=== PATIENT | male | born 1960 | race African-American/Black ===

== ENCOUNTER 2017-05-11 09:29 | Inpatient (IN) | payer MEDICAID, OTHER ==
[~2017-05-11] VITALS: Ht 185.4 cm; Wt 84.2 kg
[2017-05-11 09:34] VITALS: BP 170/81; PULSE 66; RESP 18; O2SAT 95
--- NOTE | 2017-05-11 09:50 | PD ---
HPI Chief Complaint: Pain: Acute or Chronic Time Seen by Provider: 09:47 Travel History International Travel<30 days: No Contact w/Intl Traveler<30days: No Traveled to known affect area: No History of Present Illness HPI 56-year-old male with history of BPH, had a Terrazas catheter placed last week, states that he woke up last night with left testicular pain, lower abdominal pain which he currently states is an 8 out of 10. He denies any fevers or any other issues. Modifying Factors: None Associated Signs & Symptoms: Testicular pain, lower abdominal pain Risk Factors: BPH, Terrazas catheter in place [facility] Past Medical History Patient Takes Glucophage: No Social History Alcohol Use: No Tobacco Use: No Allergies-Medications (Allergen,Severity, Reaction): Coded Allergies: No Known Allergies (Unverified , 05/11/17) Reported Meds & Prescriptions Reported Meds & Active Scripts Active Reported Humalog Inj (Insulin Human Lispro) 1,000 Unit/10 Ml Vial 1-9 Units SQ ACHS Max dose at bedtime:( )units; sugars< 70,(0)units; sugars 150-199,(1)unit; sugars 200-249,(3)units; sugars 250-299,(5)units; sugars 300-349,(7)units; sugars more than 349,(9)units. Levemir Inj (Insulin Detemir) 1,000 unit/ 10 ML Vial 10 Units SQ HS Do not mix with any other Insulin. Review of Systems Except as stated in HPI: all other systems reviewed are Neg Physical Exam Narrative GENERAL: Well-developed middle age -[place] male patient in moderate distress. Awake and oriented 3. SKIN: Focused skin assessment warm/dry. HEAD: Atraumatic. Normocephalic. EYES: Pupils equal and round. No scleral icterus. No injection or drainage. ENT: No nasal bleeding or discharge. Mucous membranes pink and moist. NECK: Trachea midline. No JVD. CARDIOVASCULAR: Regular rate and rhythm. No murmur appreciated. RESPIRATORY: No accessory muscle use. Clear to auscultation. Breath sounds equal bilaterally. GASTROINTESTINAL: Abdomen soft, mild lower abdominal tenderness without guarding or rebound, nondistended. Hepatic and splenic margins not palpable. GENITOURINARY: Circumcised. Testes descended bilaterally with tenderness to palpation of the left testicle versus the right. No lesions or erythema. No urethral discharge. Terrazas catheter in place. MUSCULOSKELETAL: No obvious deformities. No clubbing. No cyanosis. No edema. NEUROLOGICAL: Awake and alert. No obvious cranial nerve deficits. Motor grossly within normal limits. Normal speech. PSYCHIATRIC: Appropriate mood and affect; insight and judgment normal. Data Data Last Documented VS Vital Signs Date Time Temp Pulse Resp B/P Pulse Ox O2 Delivery O2 Flow Rate FiO2 05/11/17 09:34 66 18 170/81 95 Orders Basic Metabolic Panel (Bmp) (05/11/17 09:47) Complete Blood Count With Diff (05/11/17 09:47) Ua Includes Microscopic (05/11/17 09:47) Us Testicles W Doppler (05/11/17 09:47) Iv Access Insert/Monitor (05/11/17 09:47) Ondansetron Inj (Zofran Inj) (05/11/17 10:00) Sodium Chloride 0.9% Flush (Ns Flush) (05/11/17 10:00) Hydromorphone Pf Inj (Dilaudid Pf Inj) (05/11/17 10:00) Vascular Access Team Consult/P PRN (05/11/17 10:01) Vascular Poc Ultrasound (05/11/17 ) Lactic Acid Sepsis Protocol (05/11/17 11:49) Blood Culture (05/11/17 11:49) Piperacil-Tazo 4.5 Gm Premix (Zosyn 4.5 (05/11/17 11:49) Admit Order (Ed Use Only) (05/11/17 12:42) Labs Laboratory Tests Test 05/11/17 10:10 Urine Color LIGHT-YELLOW Urine Turbidity HAZY Urine pH 8.0 Urine Specific [place] 1.011 Urine Protein TRACE mg/dL Urine Glucose (UA) 300 mg/dL Urine Ketones TRACE mg/dL Urine Occult Blood NEG Urine Nitrite POS Urine Bilirubin NEG Urine Urobilinogen LESS THAN 2.0 MG/DL Urine Leukocyte Esterase LARGE Urine RBC 3 /hpf Urine WBC 61 /hpf Urine WBC Clumps RARE Urine Triple Phosphate MOD /hpf Crystals Urine Bacteria MOD /hpf Urine Mucus FEW /lpf Sodium Level 137 MEQ/L Potassium Level 4.2 MEQ/L Chloride Level 105 MEQ/L Carbon Dioxide Level 20.5 MEQ/L Anion Gap 12 MEQ/L Blood Urea Nitrogen 14 MG/DL Creatinine 1.39 MG/DL Estimat Glomerular Filtration 64 ML/MIN Rate Random Glucose 182 MG/DL Calcium Level 8.5 MG/DL MDM Medical Decision Making Medical Screen Exam Complete: Yes Emergency Medical Condition: Yes Medical Record Reviewed: Yes Interpretation(s) Laboratory Tests Test 05/11/17 10:10 Urine Turbidity HAZY (CLEAR) Urine Glucose (UA) 300 mg/dL (NEG) Urine Ketones TRACE mg/dL (NEG) Urine Nitrite POS (NEG) Urine Leukocyte Esterase LARGE (NEG) Urine WBC 61 /hpf (0-5) Urine WBC Clumps RARE (NONE) Urine Triple Phosphate MOD /hpf (NONE) Crystals Urine Bacteria MOD /hpf (NONE) Urine Mucus FEW /lpf (OCC) Carbon Dioxide Level 20.5 MEQ/L (21.0-32.0) Creatinine 1.39 MG/DL (0.60-1.30) Estimat Glomerular Filtration 64 ML/MIN (>89) Rate Random Glucose 182 MG/DL (74-106) Last 24 hours Impressions Scrotum Ultrasound 05/11/17 0923 Signed Impressions: Service Date/Time: Saturday, May 11, 2017 10:14 - CONCLUSION: 1. Increased blood flow within the left testicle and epididymis suggestive of epididymoorchitis. A small left hydrocele is present. 2. Bilateral testicular microlithiasis. Glenn Hamlin MD Differential Diagnosis Lower abdominal pain, testicular painUTI versus malfunctioning urinary catheter versus Nick's gangrene versus testicular torsion versus orchitis Narrative Course Lab work shows significant UTI. IV antibiotics were started after cultures were drawn. His exam is concerning for possible testicular infection and ultrasound shows significant orchitis. Considering patient's diabetes history, and UTI, my plan would be to admit the patient for further treatment and evaluation. Case was discussed with family practice resident service for admission. Diagnosis Primary Impression: Orchitis and epididymitis Additional Impressions: UTI (urinary tract infection) Sepsis Admitting Information Admitting Physician Requests: Admit Mars Chavez MD May 11, 2017 09:50
[2017-05-11] MEDS ORDERED: HYDROmorphone HCL PF 1 MG/ML VIAL IVS ONE (10:00)
[2017-05-11] MEDS ORDERED: SODIUM CHLORIDE 0.9% FLUSH 10 ML FLUSH IVF PRN (10:00)
[2017-05-11] MEDS ORDERED: ONDANSETRON HCL 4 MG/2 ML VIAL IVP ONE (10:00)
[2017-05-11] MEDS ORDERED: LEVEMIR SQ (10:01)
[2017-05-11] MEDS ORDERED: HUMALOG SQ (10:01)
[2017-05-11 10:52] LABS: BACTERIA, URINE MOD /hpf; BLOOD, URINE NEG (NEG); GLUCOSE,URINE 300 mg/dL (NEG); KETONE, URINE TRACE mg/dL (NEG); MUCUS URINE FEW /lpf (OCC); TRIPLE PHOSPHATE CRYSTAL,URINE MOD /hpf; URINE COLOR LIGHT-YELLOW (YELLW/STRAW)
[2017-05-11 10:55] LABS: NITRITE,URINE POS (NEG)
[2017-05-11 10:56] LABS: BICARBONATE 20.5 MEQ/L (21.0-32.0); POTASSIUM 4.2 MEQ/L (3.5-5.1)
--- NOTE | 2017-05-11 11:35 | RADRPT ---
EXAM DATE/TIME: 05/11/2017 10:14 [facility] COMPARISON: No previous studies available for comparison. INDICATIONS : Testicular pain. MEDICAL HISTORY : Testicular pain. Enlarged prostate. Self catheter. SURGICAL HISTORY : None. ENCOUNTER: Initial ACUITY: 2 days PAIN SCORE: 9/10 LOCATION: Bilateral scrotum. MEASUREMENTS: RIGHT TESTICLE: 3.7 x 2.8 x 2.3cm LEFT TESTICLE: 4.6 x 2.9 x 2.9cm FINDINGS: RIGHT TESTICLE: Homogeneous echotexture without intra or extratesticular mass. Innumerable echogenic non-shadowing f oci are present. Blood flow is within normal limits. No significant hydrocele or varicocele. Epidid ymis is within normal limits. LEFT TESTICLE: Homogeneous echotexture without intra or extratesticular mass. Innumerable echogenic non-shadowing f oci are present. Blood flow is increased within the testicle and epididymis. There is a small hydroce le. Epididymis is within normal limits. SCROTUM: Within normal limits. CONCLUSION: 1. Increased blood flow within the left testicle and epididymis suggestive of epididymoorchitis. A sm all left hydrocele is present. 2. Bilateral testicular microlithiasis. Glenn Hamlin MD on May 11, 2017 at 11:29 Board Certified Radiologist. This report was verified electronically.
[2017-05-11] MEDS ORDERED: PIPERACIL-TAZO 4.5 GM PREMIX 100 ML IV STA (11:49)
[2017-05-11 12:43] LABS: AUTOMATED NEUTROPHIL # 9.7 TH/MM3 (1.8-7.7); BASOPHIL % 0.2 % (0.0-2.0); EOSINOPHIL % 0.2 % (0.0-4.0); HEMATOCRIT 30.4 % (39.0-51.0); LYMPH % 5.2 % (9.0-44.0); LYMPHOCYTE # 0.6 TH/MM3 (1.0-4.8); MEAN CELL VOLUME 93.4 FL (80.0-100.0); MEAN CORPUSCULAR HEMOGLOBIN 29.7 PG (27.0-34.0); MEAN CORPUSCULAR HGB CONC 31.8 % (32.0-36.0); MONO % 4.7 % (0.0-8.0); NEUT % 89.7 % (16.0-70.0); PLATELET COUNT 211 TH/MM3 (150-450); RED BLOOD COUNT 3.26 MIL/MM3 (4.50-5.90); RED CELL DISTRIBUTION WIDTH 18.4 % (11.6-17.2); WHITE BLOOD COUNT 10.8 TH/MM3 (4.0-11.0)
[2017-05-11] MEDS: SODIUM CHLORIDE 0.9% FLUSH 10 ML FLUSH IV FLUSH SCH ×2 (12:45→21:00)
[2017-05-11 12:54] LABS: HEMO FLAGS AUTO DIFF
[2017-05-11 13:15] LABS: SCAN/DIFF AUTO DIFF CONFIRMED
[2017-05-11] MEDS ORDERED: HYDROmorphone HCL PF 1 MG/ML VIAL IV PUSH ONE (13:30)
[2017-05-11] MEDS ORDERED: ONDANSETRON HCL 4 MG/2 ML VIAL IVP PRN (13:45)
[2017-05-11] MEDS ORDERED: DEXTROSE 50% IN WATER 50 ML VIAL(D50) IV PRN (13:45)
[2017-05-11] MEDS ORDERED: SODIUM CHLOR 0.9% 1000 ML INJ 1,000 ML IV ONE (13:45)
[2017-05-11] MEDS ORDERED: HYDROmorphone HCL PF 1 MG/ML VIAL IV PRN (13:45)
[2017-05-11] MEDS ORDERED: GLUCAGON 1 MG/ML VIAL OTHER PRN (13:45)
[2017-05-11] MEDS ORDERED: SODIUM CHLORIDE 0.9% FLUSH 10 ML FLUSH IV FLUSH PRN ×2 (13:45→19:00)
[2017-05-11] MEDS ORDERED: SODIUM CHLORIDE 0.9% FLUSH 10 ML FLUSH IV FLUSH SCH ×2 (13:45→21:00)
[2017-05-11] MEDS ORDERED: NALOXONE HCL 0.4 MG/ML AMP IV PRN (13:45)
[2017-05-11 13:46] VITALS: BP 169/82; PULSE 107; RESP 20; O2SAT 97
[2017-05-11 14:35] LABS: LACTIC ACID GHOST NOT REPORTABLE
[2017-05-11] MEDS: SODIUM CHLOR 0.9% 1000 ML INJ 1,000 ML IV SCH ×2 (14:53→23:00)
--- NOTE | 2017-05-11 15:03 | HHI.HP ---
HPI Service Family Medicine Primary Care Physician Kelsy Briceño MD Admission Diagnosis UTI/orchitis/sepsis Diagnoses: International Travel<30 Days: No Contact w/Intl Traveler<30days: No Known Affected Area: No History of Present Illness Mr. Sheehan is a pleasant 56 y/o male with a PMHx of insulin controlled 2 diabetes mellitus, benign prostate hyperplasia, urinary retention requiring frequent catheterizations, and hypertension presenting with 2 days of worsening left testicular pain. He was scheduled for a urological surgery (possible prostate biopsy) on , 05/09, with Dr. Oh, however this was not accomplished secondary to uncontrolled blood sugars preoperatively. He also had a Terrazas catheter placed last week, for urinary retention. HPI: In general, the patient has been having left-sided testicular pain for the past 24 hours. He reports that it is a 10 out of 10, and radiates into his back. Any movement exacerbates the pain. Nothing at this point is helping his pain. He also reports fevers and chills since this morning. He denies any testicular trauma. Otherwise, complete review of systems was negative, except for a mild headache started this morning. (Kenneth Black MD R2) Review of Systems Constitutional: COMPLAINS OF: Fever, Chills, DENIES: Fatigue, Dizziness Endocrine: DENIES: Polydipsia, Polyuria Eyes: DENIES: Blurred vision Respiratory: DENIES: Cough, Sputum production, Shortness of breath Cardiovascular: DENIES: Chest pain, Palpitations, Syncope Gastrointestinal: DENIES: Abdominal pain, Black stools, Bloody stools, Constipation, Diarrhea, Nausea, Vomiting Musculoskeletal: COMPLAINS OF: Back pain Neurologic: COMPLAINS OF: Headache (Kenneth Black MD R2) Past Family Social History Past Medical History BPH, urinary retention Type 2 diabetes on insulin Essential hypertension Hyperlipidemia Past Surgical History Denies any previous surgeries. (Kenneth Black MD R2) Allergies: Coded Allergies: No Known Allergies (Unverified , 05/11/17) Family History Denies a family history of prostate cancer. Mom and dad both with diabetes. Social History Denies smoking tobacco, drinking alcohol, or using recreational drugs. Moved here from [place]. Younger sister Sherine is at bedside - flew in from [place], to be with her brother during his urological procedure. (Kenneth Black MD R2) Physical Exam Vital Signs Vital Signs Date Time Temp Pulse Resp B/P Pulse Ox O2 Delivery O2 Flow Rate FiO2 05/11/17 13:46 107 20 169/82 97 Nasal Cannula 2 05/11/17 09:34 66 18 170/81 95 Physical Exam GENERAL: In acute pain, writhing in the bed. SKIN: No rashes, ecchymoses or lesions. Cool and dry. HEAD: Atraumatic. Normocephalic. No temporal or scalp tenderness. EYES: Pupils equal round and reactive. Cloudy lenses bilaterally, suggestive of cataracts. ENT: Edentulous, dentures in place. Nose without bleeding, purulent drainage or septal hematoma. Mucus membranes moist. NECK: Trachea midline. No JVD or lymphadenopathy. Supple, nontender, no meningeal signs. CARDIOVASCULAR: Regular rate and rhythm without murmurs, gallops, or rubs. Tachycardic to 110. RESPIRATORY: Clear to auscultation. Breath sounds equal bilaterally. No wheezes , rales, or rhonchi. GASTROINTESTINAL: Abdomen soft, non-tender, nondistended. MUSCULOSKELETAL: Extremities without clubbing, cyanosis, or edema. No joint tenderness, effusion, or edema noted. No calf tenderness. NEUROLOGICAL: Awake and alert. Cranial nerves II through XII intact. : Left Teste tender to palpation diffusely, enlarged compared to right, indurated/hard to touch, not erythematous, cremasteric reflex intact, no obvious fluid collection or hernia noted. Laboratory Laboratory Tests Test 05/11/17 05/11/17 05/11/17 10:10 12:27 12:54 Urine Color LIGHT-YELLOW Urine Turbidity HAZY Urine pH 8.0 Urine Specific [place] 1.011 Urine Protein TRACE Urine Glucose (UA) 300 Urine Ketones TRACE Urine Occult Blood NEG Urine Nitrite POS Urine Bilirubin NEG Urine Urobilinogen LESS THAN 2.0 Urine Leukocyte Esterase LARGE Urine RBC 3 Urine WBC 61 Urine WBC Clumps RARE Urine Triple Phosphate MOD Crystals Urine Bacteria MOD Urine Mucus FEW Sodium Level 137 Potassium Level 4.2 Chloride Level 105 Carbon Dioxide Level 20.5 Anion Gap 12 Blood Urea Nitrogen 14 Creatinine 1.39 Estimat Glomerular Filtration 64 Rate Random Glucose 182 Calcium Level 8.5 Lactic Acid Level 3.1 White Blood Count 10.8 Red Blood Count 3.26 Hemoglobin 9.7 Hematocrit 30.4 Mean Corpuscular Volume 93.4 Mean Corpuscular Hemoglobin 29.7 Mean Corpuscular Hemoglobin 31.8 Concent Red Cell Distribution Width 18.4 Platelet Count 211 Mean Platelet Volume 10.0 Neutrophils (%) (Auto) 89.7 Lymphocytes (%) (Auto) 5.2 Monocytes (%) (Auto) 4.7 Eosinophils (%) (Auto) 0.2 Basophils (%) (Auto) 0.2 Neutrophils # (Auto) 9.7 Lymphocytes # (Auto) 0.6 Monocytes # (Auto) 0.5 Eosinophils # (Auto) 0.0 Basophils # (Auto) 0.0 CBC Comment AUTO DIFF Differential Comment AUTO DIFF CONFIRMED Date/Time Procedure Status Source Growth 05/11/17 12:27 Aerobic Blood Culture Received Blood Peripheral Pending 05/11/17 12:27 Anaerobic Blood Culture Received Blood Peripheral Pending (Kenneth Black MD R2) Result Diagram: 05/11/17 1254 05/11/17 1010 Imaging Last 72 hours Impressions Scrotum Ultrasound 05/11/17 0947 Signed Impressions: Service Date/Time: Thursday, May 11, 2017 10:14 - CONCLUSION: 1. Increased blood flow within the left testicle and epididymis suggestive of epididymoorchitis. A small left hydrocele is present. 2. Bilateral testicular microlithiasis. Glenn Hamlin MD (Kenneth Black MD R2) Septic Shock Reassessment Heart: Regular rate and rhythm Lungs: Clear Skin: Warm Peripheral Pulses: Bounding Right Radial Bounding Left Radial Capillary Refill: Brisk, <2 seconds (Kenneth Black MD R2) Assessment and Plan Assessment and Plan Patient is a pleasant 56-year-old male, with left-sided testicular pain for the past 1-2 days. Ultrasound in the ED showed, "increased blood flow within the left testicle, and epididymis suggestive of epididymoorchitis." Meeting sepsis criteria. He will be admitted for severe sepsis (lactic acid 3.1), likely related to orchitis. (Kenneth Black MD R2) Attending Attestation The patient has been seen and examined. The chart and all resident notes have been reviewed. I agree that inpatient care is appropriate and that a two midnight stay is expected for the reasons documented in the resident history and physical. I have discussed this with the resident and certify the resident s order for inpatient admission. (Sulma Dwyer MD) Problem List: (1) Sepsis Status: Acute Plan: Tachycardia 110, RR 20, Lactic acid 3.1, source of infection Right testes. Treat for Orchitis and Epididymitis: -Zosyn 4.5 mg q 6 hours, add vancomycin if clinically not improving or gram + cocci in urine cultures. -Urine cultures pending -Blood cultures pending -1 L fluid bolus in ED, IVF 125 ml/hr NS - if persistent tachycardia, lactic acidosis may need additional 1 L bolus. -Trend lactic acid per sepsis protocol. -Consult urology. No clinical signs of Nick's gangrene at this time. (2) Orchitis and epididymitis Status: Acute Plan: As above. (3) UTI (urinary tract infection) Status: Acute Plan: UA showed: 300 glucose, trace ketones, high nitrates, high leukocyte esterase, 61 white blood cells, moderate high bacteria. Treat with Zosyn as above. Benefits of removing indwelling Terrazas catheter to be weighed. (4) DM (diabetes mellitus) Status: Acute Plan: BG on admission was 162 - on Levemir 10 units q hs at home Hold home insulin and treat with ISS. (5) Nutrition, metabolism, and development symptoms Status: Acute Plan: Nutrition: NPO until evaluated by urology Electrolytes: At goal, CR slightly elevated to 1.39 - will trend. DVT ppx: Mechanical SCDs, Heparin 5,000 units sq q 8 hours. GI ppx: not indicated at this time. wdw Dr. Dwyer (Kenneth Black MD R2) Physician Certification 2 Midnight Certification Type: Admission for Inpatient Services Order for Inpatient Services The services are ordered in accordance with Medicare regulations or non- Medicare payer requirements, as applicable. In the case of services not specified as inpatient-only, they are appropriately provided as inpatient services in accordance with the 2-midnight benchmark. Estimated LOS (days): 2 2 days is the estimated time the patient will need to remain in the hospital, assuming treatment plan goals are met and no additional complications. Post-Hospital Plan: Home (Kenneth Black MD R2) Kenneth Black MD R2 May 11, 2017 15:03 Sulma Dwyer MD May 12, 2017 11:06
[2017-05-11 16:00] VITALS: BP 178/82; PULSE 115; RESP 22; TEMP 100.2; O2SAT 97
--- NOTE | 2017-05-11 16:45 | RADRPT ---
EXAM DATE/TIME: 05/11/2017 15:56 [facility] COMPARISON: No previous studies available for comparison. INDICATIONS : Lower abdominal and testicular pain and urinary tract infection. MEDICAL HISTORY : Benign prostatic hyperplasia, (BPH) Urinary tract infection. Epididymo-orchitis. SURGICAL HISTORY : None. ENCOUNTER: Initial ACUITY: 1 day PAIN SCORE: 4/10 LOCATION: Bilateral flank MEASUREMENTS: RIGHT KIDNEY: 12.3 x 5.6 x 5.2 cm LEFT KIDNEY: 13.0 x 5.8 x 5.8 cm FINDINGS: Parenchymal echogenicity of both kidneys is increased. No focal renal lesion on either side. No evide nce of acute obstructive uropathy. Urinary bladder is decompressed with a Terrazas catheter. There circumferential wall thickening and an e nlarged prostate. Not convincingly part of the prostate is an approximately 5 cm masslike area near t he bladder base. CONCLUSION: 1. Elevated parenchymal echogenicity of both kidneys typical of chronic parenchymal disease. No acute obstructive uropathy demonstrated. 2. Circumferential wall thickening of the urinary bladder as can be seen in the setting of cystitis. There is an enlarged prostate and an apparently separate masslike area near the bladder base which ma y be some prostate lobulation or a true bladder mass. CT urogram recommended when clinically feasible . Glenn Hall MD on May 11, 2017 at 16:39 Board Certified Radiologist. This report was verified electronically.
[2017-05-11] MEDS: INSULIN ASPART SUPPLEMENTAL SCALE SQ SCH ×2 (16:51→21:15)
[2017-05-11] MEDS: oxyCODONE/ACETAMINOPHEN 10 MG/325 MG TAB PO PRN (16:59)
[2017-05-11 17:47] VITALS: PULSE 112
[2017-05-11] MEDS ORDERED: SODIUM CHLORID 0.9% 500 ML INJ 500 ML IV ONE (18:45)
[2017-05-11 20:00] VITALS: BP 155/73; PULSE 107; PULSE 115; RESP 18; TEMP 100.2; O2SAT 95
[2017-05-11] MEDS: DOCUSATE SODIUM 50 MG/SENNA 8.6 MG TAB PO SCH (21:15)
[2017-05-11] MEDS: PIPERACIL-TAZO 4.5 GM PREMIX 100 ML IV SCH (21:43)
[2017-05-12] VITALS (9 sets, daily range): BP systolic 111–149; BP diastolic 58–86; PULSE 95–140; RESP 16–20; TEMP 98.3–102.9; O2SAT 95–100
[2017-05-12] MEDS: PIPERACIL-TAZO 4.5 GM PREMIX 100 ML IV SCH ×4 (02:26→20:46)
[2017-05-12] MEDS: INSULIN ASPART SUPPLEMENTAL SCALE SQ SCH ×4 (06:10→21:00)
[2017-05-12] MEDS: SODIUM CHLOR 0.9% 1000 ML INJ 1,000 ML IV SCH ×2 (06:10→15:49)
[2017-05-12] MEDS: oxyCODONE/ACETAMINOPHEN 10 MG/325 MG TAB PO PRN ×3 (06:49→20:44)
[2017-05-12] MEDS: SODIUM CHLORIDE 0.9% FLUSH 10 ML FLUSH IV FLUSH SCH ×2 (08:22→20:46)
[2017-05-12] MEDS: DOCUSATE SODIUM 50 MG/SENNA 8.6 MG TAB PO SCH ×2 (08:22→20:44)
[2017-05-12 08:44] LABS: AUTOMATED NEUTROPHIL # 12.2 TH/MM3 (1.8-7.7); BASOPHIL % 0.1 % (0.0-2.0); HEMO FLAGS DIFF FINAL; LYMPH % 1.6 % (9.0-44.0); LYMPHOCYTE # 0.2 TH/MM3 (1.0-4.8); MEAN CELL VOLUME 91.7 FL (80.0-100.0); MEAN CORPUSCULAR HEMOGLOBIN 29.6 PG (27.0-34.0); MEAN CORPUSCULAR HGB CONC 32.2 % (32.0-36.0); NEUT % 93.3 % (16.0-70.0); PLATELET COUNT 108 TH/MM3 (150-450); RED BLOOD COUNT 2.83 MIL/MM3 (4.50-5.90); RED CELL DISTRIBUTION WIDTH 17.9 % (11.6-17.2)
[2017-05-12 09:06] LABS: ANION GAP 9 MEQ/L (5-15); AST (GOT) 25 U/L (15-37); BICARBONATE 22.7 MEQ/L (21.0-32.0); BLOOD UREA NITROGEN 21 MG/DL (7-18); CHLORIDE 107 MEQ/L (98-107); GLOMERULAR FILTRATION RATE 48 ML/MIN (>89); MAGNESIUM 1.7 MG/DL (1.5-2.5); SODIUM (NA) 139 MEQ/L (136-145)
[2017-05-12 09:08] LABS: ALT (GPT) 13 U/L (12-78)
[2017-05-12 09:10] LABS: ALKALINE PHOSPHATASE 71 U/L (45-117); TOTAL BILIRUBIN ADULT 0.9 MG/DL (0.2-1.0)
[2017-05-12] MEDS ORDERED: IOHEXOL 350 MG/ML 10 ML VIAL (for RAD DIAG) IV ONE (10:48)
[2017-05-12] MEDS ORDERED: SODIUM CHLOR 0.9% 1000 ML INJ 1,000 ML IV ONE (11:30)
--- NOTE | 2017-05-12 11:42 | RADRPT ---
EXAM DATE/TIME: 05/12/2017 10:48 [facility] COMPARISON: No previous studies available for comparison. INDICATIONS : Fever and chills. Urine tract infection. Enlarged testes. IV CONTRAST: 85 cc Omnipaque 350 (iohexol) IV ORAL CONTRAST: No oral contrast ingested. RADIATION DOSE: 9.96 CTDIvol (mGy) MEDICAL HISTORY : Diabetic SURGICAL HISTORY : None. ENCOUNTER: Initial ACUITY: 1 week PAIN SCALE: 0/10 LOCATION: Bilateral groin TECHNIQUE: Volumetric scanning of the pelvis was performed. Using automated exposure control and adjustment of t he mA and/or kV according to patient size, radiation dose was kept as low as reasonably achievable to obtain optimal diagnostic quality images. FINDINGS: The bladder wall is markedly thickened circumferentially up to about 2 cm in thickness. The Terrazas cat heter balloon is displaced anteriorly by approximately 4.9 cm mass. It is unclear if this represents an enlarged prostate or mass within the bladder. There is a 3.8 cm mass posteriorly in the region of the left seminal vesicle. Differential diagnosis includes infection and neoplasm. There are bilateral hydroceles. No acute bony abnormalities. Normal caliber bowel within the lower ab domen and pelvis. CONCLUSION: 1. Marked circumferential thickening of the bladder with Terrazas catheter balloon displaced anteriorly by a bladder mass or enlarged prostate measuring up to 4.9 cm in diameter. 3.8 cm mass in the region of the left seminal vesicle. Differential diagnosis includes infection and neoplasm. 2. Bilateral hydroceles. Alex De MD on May 12, 2017 at 11:35 Board Certified Radiologist. This report was verified electronically.
[2017-05-12] MEDS ORDERED: VANCOMYCIN INJ 1,000 MG in SODIUM CHLOR 0.9% 250 ML INJ 250 ML IV SCH (12:00)
[2017-05-12] MEDS ORDERED: Vancomycin Consult Pharmacy 1 EA OTHER PRN (12:00)
--- NOTE | 2017-05-12 12:28 | EKG ---
Date Performed: 05/11/2017 Time Performed: 15:17:22 PTAGE: 56 years EKG: SINUS TACHYCARDIA POSSIBLE LEFT ATRIAL ENLARGEMENT NONSPECIFIC T-WAVE ABNORMALITY ABNORMAL RHYTHM ECG NO PREVIOUS TRACING DOCTOR: Yg Darby Interpretating Date/Time 05/12/2017 12:24:46
--- NOTE | 2017-05-12 13:47 | MB ---
cc: HEMAL GARIBAY DATE OF CONSULTATION: 05/12/2017. REASON FOR CONSULTATION: HISTORY OF PRESENT ILLNESS: This is a 56-year-old male who is very noncompliant with his medications who was recently admitted approximately a week and a half ago with DKA. He was scheduled to undergo suprapubic prostatectomy but his glucose again was in the 450 range. On Saturday, he started developing left-sided testicular pain and then the swelling worsened on Saturday and he developed fever. Ultrasound of the scrotum demonstrated left epididymo-orchitis. CT scan of the pelvis demonstrated a left seminal vesicle abscess and possible prostatic abscess. He also has an indwelling Terrazas catheter which he has had chronically due to urinary retention. His sugars have not been controlled and he has been noncompliant with his medication. There is also a history of him being on Coumadin for atrial fibrillation in the past. He is not sure as to when he last took his Coumadin. PAST MEDICAL HISTORY: His medical history includes: 1. BPH with urinary obstruction and retention. 2. Noncontrolled insulin dependent diabetic. 3. Hypertension. 4. Hyperlipidemia. 5. Atrial fibrillation. PAST SURGICAL HISTORY: He denies any prior surgical history. ALLERGIES: HE HAS NO ALLERGIES. SOCIAL HISTORY: Denies smoking, drinking or using any drugs. FAMILY HISTORY: No family history of prostate cancer. Diabetes is noted. REVIEW OF SYSTEMS: Notes left-sided testicular pain and some generalized pelvic pain with fever. Denies chest pain or shortness of breath at present. A twelve-point review of systems was performed, which was negative. PHYSICAL EXAMINATION: VITAL SIGNS: Today his temperature is 98.3 presently with a T-max of 100.2, heart rates 96, respiratory rate is 20, 121/59 is his blood pressure. GENERAL: He is a well-developed, well-nourished 50-year-old male in no acute distress. HEAD, EYES, EARS, NOSE, THROAT: Normocephalic and atraumatic. Pupils equal, round and reactive to light. Extraocular muscles intact. NECK: The neck is supple. HEART: Regular rate and rhythm. LUNGS: Clear. ABDOMEN: The abdomen is soft, nontender and nondistended. Terrazas catheter is in place. RECTAL: He has a tender prostate on the left with left epididymal tenderness with swelling and apparent orchitis. EXTREMITIES: No evidence of cyanosis, clubbing or edema. LABORATORY STUDIES: White count is noted to be 13.0, hemoglobin 8.4, hematocrit 26.0, platelet count of 108,000. Sodium 139, potassium 4.0, chloride 107, CO2 22.7, BUN 21, creatinine 1.7, glucose of 268. Urinalysis shows large leukocyte esterase, clumps of rare ____ cells, 61 white cells with three red cells, leukocyte esterase is large. IMAGING STUDIES: Imaging study shows scrotal ultrasound consistent with left epididymo-orchitis. The pelvic CT shows marked circumferential bladder wall thickening with Terrazas in place with an anterior bladder mass displacing the Terrazas catheter anteriorly and an enlarged prostate measuring 4.9 cm in diameter with a 3.8 centimeter mass in the regional left seminal vesicle. The differential diagnosis includes infection and/or neoplasm. ASSESSMENT: A 56-year-old male with a history of diabetes with chronic indwelling Terrazas catheter and what appears to be a prostatic abscess with seminal vesical abscess also present. 1. Will need to check his PT and INR. 2. Continue NPO. 3. Better diabetic control. 4. He will need a TUR unroofing of his prostatic abscess either later today or earlier this week. Hemal MCCLELLAN/KACIE /1:21 PM /1:37 PM
--- NOTE | 2017-05-12 13:50 | HHI.FPPN ---
Subjective Subjective Patient seen and examined with the resident team. Case reviewed and discussed Please refer to resident H&P for further details regarding HPI, ROS, PMH, SurgHx , FH and SocHx All systems reviewed and neg except as stated in HPI In summary, patient is a 56yoM with a history of BPH known to Dr. Oh, urology. Patient had been experiencing urinary retention requiring indwelling corey catheter placement recently. He came to the ED after progressive worsening of L scrotal pain and edema. Patient is seen in his hospital bed this am, very grateful for his care. He reports some improvement in his pain overnight, reports edema remains stable. RUST Objective Objective Laboratory Tests - Abnormals Test 05/11/17 05/12/17 17:39 07:33 Lactic Acid Level 2.7 mmol/L White Blood Count 13.0 TH/MM3 Red Blood Count 2.83 MIL/MM3 Hemoglobin 8.4 GM/DL Hematocrit 26.0 % Red Cell Distribution Width 17.9 % Platelet Count 108 TH/MM3 Neutrophils (%) (Auto) 93.3 % Lymphocytes (%) (Auto) 1.6 % Neutrophils # (Auto) 12.2 TH/MM3 Lymphocytes # (Auto) 0.2 TH/MM3 Blood Urea Nitrogen 21 MG/DL Creatinine 1.77 MG/DL Estimat Glomerular Filtration 48 ML/MIN Rate Random Glucose 268 MG/DL Calcium Level 7.8 MG/DL Phosphorus Level 2.4 MG/DL Total Protein 6.1 GM/DL Albumin 2.1 GM/DL Vital Signs 05/11/17 05/11/17 05/11/17 05/11/17 13:46 16:00 17:47 20:00 Temp 100.2 100.2 Pulse 107 115 112 107 Resp 20 18 B/P 169/82 178/82 155/73 Pulse Ox 97 97 95 O2 Delivery Nasal Cannula O2 Flow Rate 2 05/11/17 05/11/17 05/12/17 05/12/17 20:00 20:00 00:00 00:00 Temp 100.0 Pulse 115 95 Resp 18 B/P 138/63 Pulse Ox 98 O2 Delivery Room Air Room Air 05/12/17 05/12/17 05/12/17 05/12/17 04:00 04:00 08:00 12:00 Temp 99.9 99.9 98.3 Pulse 104 104 96 Resp 16 20 20 B/P 125/58 111/58 121/59 Pulse Ox 98 98 100 O2 Delivery Room Air INTAKE & OUTPUT 05/12/17 07:00 Intake Total 600 ml Output Total 3975 ml Balance -3375 ml Physical exam GENERAL: wdwn male, resting in bed, family at bedside. SKIN: Warm and dry. L scrotum with erythema and warmth, no palpable crepitus. HEAD: Normocephalic. AT EYES: No scleral icterus. No injection or drainage. ENT: OP clear. MM slightly dry NECK: Supple, trachea midline. No JVD or lymphadenopathy. CARDIOVASCULAR: Regular rate and rhythm without murmurs, gallops, or rubs. RESPIRATORY: Breath sounds equal bilaterally. No accessory muscle use. GASTROINTESTINAL: Abdomen soft, non-tender, nondistended. : Skin L scrotum as noted above. There is significant tenderness to the L scrotum as well as L inguinal region. MUSCULOSKELETAL: No cyanosis, or edema. No calf tenderness BACK: Nontender without obvious deformity. No CVA tenderness. NEURO: Awake and alert. Normal speech. Assessment Assessment 56yo M admitted with: Orchitis, cystitis Sepsis DM, uncontrolled on insulin BPH, urinary retention requiring corey placement Essential hypertension Acute renal failure Hyperlipidemia Leukocytosis Thrombocytopenia Elevated lactic acid PLAN PLAN Empiric antibiotic therapy IVF Blood cultures, urine culture Urology consult, known to Dr. Oh ID consultation, appreciate antibiotic recommendations CT Pelvis Accu-checks, SSI Resume home levemir, titrate as needed Resume home anti-hypertensives Monitor BMP, avoid nephrotoxins Patient seen and examined. Case reviewed and discussed Agree with plan of care as discussed with me and documented in the resident note. Sulma Dwyer MD May 12, 2017 13:50
[2017-05-12 14:09] LABS: APTT (PATIENT) 41.7 SEC (24.3-30.1); INTERNATIONAL NORMALIZED RATIO 1.5 RATIO; PROTHROMBIN TIME - PATIENT 17.1 SEC (9.8-11.6)
[2017-05-12] MEDS: VANCOMYCIN INJ 1,500 MG in SODIUM CHLORID 0.9% 500 ML INJ 500 ML IV SCH (15:48)
[2017-05-12] MEDS: PHYTONADIONE 10 MG/ML VIAL SQ SCH (17:17)
--- NOTE | 2017-05-12 18:14 | PD.ID.CON ---
History of Present Illness Service ID Consult Requested By Markus Reason for Consult orchitis, epidydimitis Primary Care Physician Kelsy Briceño MD Diagnoses: History of Present Illness 56 yo male originally from [facility], with poorly controlled diabetes, BPH and indwelling corey x 1 yr developped subpapibic pain, hematuria and urinary cloudiness close to 1 week ago after the last foely change He also co on maliase, fever, poor appetite He also noted swelling and tenderness of his L esticle Pt was seen by urologist Dr Oh who diagnosed him with prostatic abscess and is planing to operated him tomorrow Pt is having fever up to 102.9 and leukocytosis, his UA is abnormal with prominent pyuria , blood clx are negative 1 day, urine clx pending he has persistent lactic acidosis which is trending down, mild leukocytosis Lymphonenia noed Review of Systems Constitutional: COMPLAINS OF: Fatigue, Fever, Change in appetite Gastrointestinal: COMPLAINS OF: Abdominal pain Genitourinary: COMPLAINS OF: Urinary incontinence, Hematuria, Dysuria, Testicular Pain, Testicular Swelling Except as stated in HPI: all other systems reviewed are Neg Past Family Social History Allergies: Coded Allergies: No Known Allergies (Unverified , 05/11/17) Past Medical History BPH, urinary retention Type 2 diabetes on insulin Essential hypertension Hyperlipidemia Past Surgical History Denies any previous surgeries Active Ordered Medications Medications where reviewed in EMR Antibiotics Include: lenora mitchell Family History diabetes. Social History Denies smoking tobacco, drinking alcohol, or using recreational drugs. Moved here from [place]. last travel 7 mos ago Physical Exam Vital Signs Vital Signs Date Time Temp Pulse Resp B/P Pulse Ox O2 Delivery O2 Flow Rate FiO2 05/12/17 16:00 98.7 106 20 138/69 97 05/12/17 12:00 98.3 96 20 121/59 100 05/12/17 08:25 96 05/12/17 08:25 Nasal Cannula 2.00 05/12/17 08:00 99.9 104 20 111/58 98 05/12/17 04:00 Room Air 05/12/17 04:00 99.9 104 16 125/58 98 05/12/17 00:00 Room Air 05/12/17 00:00 100.0 95 18 138/63 98 05/11/17 20:00 115 05/11/17 20:00 Room Air 05/11/17 20:00 100.2 107 18 155/73 95 Physical Exam CONSTITUTIONAL/GENERAL: This is an adequately nourished patient, in no apparent distress. TUBES/LINES/DRAINS: SKIN: No jaundice, rashes, or lesions. Skin temperature appropriate. Not diaphoretic. HEAD: Atraumatic. Normocephalic. EYES: Pupils equal and round and reactive. Extraocular motions intact. No scleral icterus. No injection or drainage. Fundi not examined. ENT: Hearing grossly normal. Nose without bleeding or purulent drainage. Throat without visible erythema, exudates, masses, or lesions. Edentiulous NECK: Trachea midline. Supple, nontender. No palpable thyroid enlargement or nodularity. CARDIOVASCULAR: Regular rate and rhythm without murmurs, gallops, or rubs. No JVD. Peripheral pulses symmetric. RESPIRATORY/CHEST: Symmetric, unlabored respirations. Clear to auscultation. Breath sounds equal bilaterally. No wheezes, rales, or rhonchi. GASTROINTESTINAL: Abdomen soft, non-tender, nondistended. No hepato-splenomegaly , or palpable masses. No guarding. Bowel sounds present. GENITOURINARY: Without palpable bladder distension. Corey catheter in place with failry clear yellow urine Penis circumcised. L testicle is enlarged and trent to palpation MUSCULOSKELETAL: Extremities without clubbing, cyanosis, or edema. No joint tenderness or effusion noted. No calf tenderness. No mottling or clubbing. LYMPHATICS: No palpable cervical or supraclavicular adenopathy. NEUROLOGICAL: Awake and alert. Motor and sensory grossly within normal limits. Follows commands. Cleasr speech. Moves all extremities. PSYCHIATRIC: No obvious anxiety/depression. no apparent hallucinations or other psychotic thought process. Laboratory Laboratory Tests Test 05/12/17 05/12/17 07:33 13:27 White Blood Count 13.0 Red Blood Count 2.83 Hemoglobin 8.4 Hematocrit 26.0 Mean Corpuscular Volume 91.7 Mean Corpuscular Hemoglobin 29.6 Mean Corpuscular Hemoglobin 32.2 Concent Red Cell Distribution Width 17.9 Platelet Count 108 Mean Platelet Volume 10.0 Neutrophils (%) (Auto) 93.3 Lymphocytes (%) (Auto) 1.6 Monocytes (%) (Auto) 5.0 Eosinophils (%) (Auto) 0.0 Basophils (%) (Auto) 0.1 Neutrophils # (Auto) 12.2 Lymphocytes # (Auto) 0.2 Monocytes # (Auto) 0.6 Eosinophils # (Auto) 0.0 Basophils # (Auto) 0.0 CBC Comment DIFF FINAL Differential Comment Sodium Level 139 Potassium Level 4.0 Chloride Level 107 Carbon Dioxide Level 22.7 Anion Gap 9 Blood Urea Nitrogen 21 Creatinine 1.77 Estimat Glomerular Filtration 48 Rate Random Glucose 268 Calcium Level 7.8 Phosphorus Level 2.4 Magnesium Level 1.7 Total Bilirubin 0.9 Aspartate Amino Transf 25 (AST/SGOT) Alanine Aminotransferase 13 (ALT/SGPT) Alkaline Phosphatase 71 Total Protein 6.1 Albumin 2.1 Prothrombin Time 17.1 Prothromb Time International 1.5 Ratio Activated Partial 41.7 Thromboplast Time Date/Time Procedure Status Source Growth 05/11/17 12:27 Aerobic Blood Culture - Preliminary Resulted Blood Peripheral NO GROWTH IN 1 DAY 05/11/17 12:27 Anaerobic Blood Culture - Preliminary Resulted Blood Peripheral NO GROWTH IN 1 DAY Result Diagram: 05/12/17 0733 05/12/17 0733 Imaging Last Impressions Pelvis CT 05/12/17 0000 Signed Impressions: Service Date/Time: Friday, May 12, 2017 10:48 - CONCLUSION: 1. Marked circumferential thickening of the bladder with Corey catheter balloon displaced anteriorly by a bladder mass or enlarged prostate measuring up to 4.9 cm in diameter. 3.8 cm mass in the region of the left seminal vesicle. Differential diagnosis includes infection and neoplasm. 2. Bilateral hydroceles. Alex De MD Scrotum Ultrasound 05/11/17 0947 Signed Impressions: Service Date/Time: Thursday, May 11, 2017 10:14 - CONCLUSION: 1. Increased blood flow within the left testicle and epididymis suggestive of epididymoorchitis. A small left hydrocele is present. 2. Bilateral testicular microlithiasis. Glenn Hamlin MD Renal Ultrasound 05/11/17 0000 Signed Impressions: Service Date/Time: Thursday, May 11, 2017 15:56 - CONCLUSION: 1. Elevated parenchymal echogenicity of both kidneys typical of chronic parenchymal disease. No acute obstructive uropathy demonstrated. 2. Circumferential wall thickening of the urinary bladder as can be seen in the setting of cystitis. There is an enlarged prostate and an apparently separate masslike area near the bladder base which may be some prostate lobulation or a true bladder mass. CT urogram recommended when clinically feasible. Glenn Hall MD Assessment and Plan Assessment and Plan UTI in the settings of chronic corey Epydemiorchitis Prostatic abscess Sepsis 2/2 complicated UTI - cont zosyn fu urine clx - add levaquine Martha Britt MD May 12, 2017 18:14
[2017-05-12] MEDS: INSULIN DETEMIR 100 UNITS/ML VIAL SQ SCH (21:14)
[2017-05-13] VITALS: BP 97/56; PULSE 110; RESP 19; TEMP 99.7; O2SAT 96
[2017-05-13] MEDS: LEVOFLOXACIN 750 MG PREMIX INJ 150 ML IV SCH (00:26)
[2017-05-13] MEDS: PIPERACIL-TAZO 4.5 GM PREMIX 100 ML IV SCH ×4 (00:26→22:26)
[2017-05-13 04:30] VITALS: BP 140/81; PULSE 106; RESP 18; TEMP 99.1; O2SAT 99
[2017-05-13] MEDS: INSULIN ASPART SUPPLEMENTAL SCALE SQ SCH ×4 (06:18→22:23)
[2017-05-13 08:00] VITALS: BP 118/60; PULSE 75; PULSE 99; RESP 18; TEMP 98.8; O2SAT 98
[2017-05-13 08:07] LABS: AUTOMATED NEUTROPHIL # 13.1 TH/MM3 (1.8-7.7); BASOPHIL % 0.3 % (0.0-2.0); HEMATOCRIT 24.3 % (39.0-51.0); HEMO FLAGS DIFF FINAL; LYMPH % 1.9 % (9.0-44.0); LYMPHOCYTE # 0.3 TH/MM3 (1.0-4.8); MEAN CELL VOLUME 91.2 FL (80.0-100.0); MEAN CORPUSCULAR HEMOGLOBIN 29.5 PG (27.0-34.0); MEAN CORPUSCULAR HGB CONC 32.3 % (32.0-36.0); MONO % 2.3 % (0.0-8.0); NEUT % 95.5 % (16.0-70.0); PLATELET COUNT 102 TH/MM3 (150-450); RED BLOOD COUNT 2.67 MIL/MM3 (4.50-5.90); RED CELL DISTRIBUTION WIDTH 17.8 % (11.6-17.2); WHITE BLOOD COUNT 13.7 TH/MM3 (4.0-11.0)
[2017-05-13 08:14] LABS: INTERNATIONAL NORMALIZED RATIO 1.4 RATIO; PROTHROMBIN TIME - PATIENT 16.1 SEC (9.8-11.6)
[2017-05-13 08:30] LABS: BICARBONATE 21.7 MEQ/L (21.0-32.0); POTASSIUM 3.9 MEQ/L (3.5-5.1)
--- NOTE | 2017-05-13 08:37 | HHI.PR ---
Subjective Patient symptoms today Pt states the scrotum is feeling better; less pain. Fever overnight. INR at 1.4 Objective Vital Signs Vital Signs Date Time Temp Pulse Resp B/P Pulse Ox O2 Delivery O2 Flow Rate FiO2 05/13/17 08:00 98.8 99 18 118/60 98 05/13/17 04:30 99.1 106 18 140/81 99 05/13/17 00:00 99.7 110 19 97/56 96 05/12/17 23:00 98 05/12/17 21:44 20 05/12/17 20:45 102.9 140 20 149/86 95 05/12/17 20:00 130 05/12/17 19:00 Room Air 05/12/17 16:00 98.7 106 20 138/69 97 05/12/17 12:00 98.3 96 20 121/59 100 Intake & Output 05/13/17 05/13/17 07:00 19:00 Intake Total 1550 ml Output Total 1600 ml Balance -50 ml Intake Oral 1550 ml Output Urine Total 1600 ml # Bowel Movements 0 Result Diagram: 05/13/17 0745 05/13/17 0745 Objective Remarks Abd:soft,nt,nd Terrazas with clear urine Left testicle with less swelling today Medications and IVs Current Medications Medications (Trade) Dose Ordered Sig/Rpeet Route Start Time Stop Time Status Last Admin (NS Flush) 2 ml UNSCH PRN IV FLUSH 05/11/17 12:45 (NS Flush) 2 ml BID IV FLUSH 05/11/17 12:45 05/11/17 12:45 (Dilaudid Pf Inj) 1 mg Q4H PRN IV 05/11/17 13:45 (Zofran Inj) 4 mg Q6H PRN IVP 05/11/17 13:45 (Narcan Inj) 0.4 mg UNSCH PRN IV 05/11/17 13:45 (Tina-Colace) 1 tab BID PO 05/11/17 21:00 05/12/17 20:44 (Percocet 10-325 Mg) 1 tab Q4H PRN PO 05/11/17 13:45 05/12/17 06:49 Oxycodone/ Acetaminophen 2 tab 2 tab Q4H PRN PO 05/11/17 13:45 05/12/17 20:44 (Zosyn 4.5 Gm Premix) 100 ml @ 200 mls/hr Q6H IV 05/11/17 20:00 05/13/17 00:26 (D50w (Vial) Inj) 50 ml UNSCH PRN IV 05/11/17 13:45 (Glucagon Inj) 1 mg UNSCH PRN OTHER 05/11/17 13:45 (Tylenol) 650 mg Q4H PRN PO 05/11/17 17:30 Insulin Detemir 10 units 10 units HS SQ 05/12/17 21:00 05/12/17 21:14 Sodium Chloride 1,000 ml @ 110 mls/hr Q9H6M IV 05/12/17 12:00 05/12/17 15:49 Pharmacy Profile Note 0 ml @ 0 mls/hr UNSCH PRN OTHER 05/12/17 12:00 (Vancomycin Inj/ NS 500 ml Inj) 515 ml @ 250 mls/hr Q24H IV 05/12/17 13:00 05/12/17 15:48 Miscellaneous Information SPECIFIC LAB TO BE DRAWN:VANCO TROUGH DATE TO... ONCE ONCE .XX 05/15/17 12:45 05/15/17 12:46 Phytonadione 10 mg 10 mg DAILY SQ 05/12/17 14:45 05/12/17 17:17 (Levaquin 750 Mg Premix Inj) 150 ml @ 100 mls/hr Q24H IV 05/13/17 00:00 05/13/17 00:26 Assessment and Plan Assessment and Plan 56 y.o non-compliant male with left epididymalorchitis and prostatic/seminal vesicle abcess Continue Vit K to correct PT/INR For unroofing of abcess in AM tomorrow and SP tube insertion Continue IV ABX NPO after Sunil Jc DO May 13, 2017 08:37
[2017-05-13] MEDS: SODIUM CHLORIDE 0.9% FLUSH 10 ML FLUSH IV FLUSH SCH ×2 (08:48→22:24)
[2017-05-13] MEDS: oxyCODONE/ACETAMINOPHEN 10 MG/325 MG TAB PO PRN (08:54)
[2017-05-13] MEDS: PHYTONADIONE 10 MG/ML VIAL SQ SCH (08:55)
[2017-05-13] MEDS: DOCUSATE SODIUM 50 MG/SENNA 8.6 MG TAB PO SCH ×2 (09:00→22:28)
[2017-05-13] MEDS ORDERED: INSULIN DETEMIR 100 UNITS/ML VIAL SQ SCH (10:00)
[2017-05-13 12:00] VITALS: BP 111/58; PULSE 95; RESP 18; TEMP 99.3; O2SAT 97
--- NOTE | 2017-05-13 13:13 | HHI.FPPN ---
Subjective Remarks She febrile overnight with a MAXIMUM TEMPERATURE of 102.9. He reports subjective fever/chills. Continues to complain of scrotal pain although it is improved from yesterday. (Candice Sanders MD R3) Objective Vitals Vital Signs Date Time Temp Pulse Resp B/P Pulse Ox O2 Delivery O2 Flow Rate FiO2 05/13/17 12:00 99.3 95 18 111/58 97 05/13/17 08:00 98.8 99 18 118/60 98 05/13/17 04:30 99.1 106 18 140/81 99 05/13/17 00:00 99.7 110 19 97/56 96 05/12/17 23:00 98 05/12/17 21:44 20 05/12/17 20:45 102.9 140 20 149/86 95 05/12/17 20:00 130 05/12/17 19:00 Room Air 05/12/17 16:00 98.7 106 20 138/69 97 I/O 05/12/17 05/12/17 05/12/17 05/13/17 05/13/17 05/13/17 07:00 15:00 23:00 07:00 15:00 23:00 Intake Total 0 ml 0 ml 2451 ml 700 ml Output Total 650 ml 1525 ml 1000 ml 600 ml Balance -650 ml -1525 ml 1451 ml 100 ml Intake Oral 0 ml 0 ml 850 ml 700 ml IV Total 1601 ml Output Urine Total 650 ml 1525 ml 1000 ml 600 ml # Bowel Movements 0 0 0 0 (Candice Sanders MD R3) Result Diagram: 05/13/17 0745 05/13/17 0745 Imaging Last Impressions Pelvis CT 05/12/17 0000 Signed Impressions: Service Date/Time: Friday, May 12, 2017 10:48 - CONCLUSION: 1. Marked circumferential thickening of the bladder with Terrazas catheter balloon displaced anteriorly by a bladder mass or enlarged prostate measuring up to 4.9 cm in diameter. 3.8 cm mass in the region of the left seminal vesicle. Differential diagnosis includes infection and neoplasm. 2. Bilateral hydroceles. Alex De MD Scrotum Ultrasound 05/11/17 0947 Signed Impressions: Service Date/Time: Thursday, May 11, 2017 10:14 - CONCLUSION: 1. Increased blood flow within the left testicle and epididymis suggestive of epididymoorchitis. A small left hydrocele is present. 2. Bilateral testicular microlithiasis. Glenn Hamlin MD Renal Ultrasound 05/11/17 0000 Signed Impressions: Service Date/Time: Thursday, May 11, 2017 15:56 - CONCLUSION: 1. Elevated parenchymal echogenicity of both kidneys typical of chronic parenchymal disease. No acute obstructive uropathy demonstrated. 2. Circumferential wall thickening of the urinary bladder as can be seen in the setting of cystitis. There is an enlarged prostate and an apparently separate masslike area near the bladder base which may be some prostate lobulation or a true bladder mass. CT urogram recommended when clinically feasible. Glenn Hall MD Objective Remarks GENERAL: wdwn male, resting in bed, family at bedside. SKIN: Warm and dry. L scrotum with erythema and warmth, no palpable crepitus. HEAD: Normocephalic. AT EYES: No scleral icterus. No injection or drainage. ENT: OP clear. MM slightly dry NECK: Supple, trachea midline. No JVD or lymphadenopathy. CARDIOVASCULAR: Regular rate and rhythm without murmurs, gallops, or rubs. RESPIRATORY: Breath sounds equal bilaterally. No accessory muscle use. GASTROINTESTINAL: Abdomen soft, non-tender, nondistended. : Skin L scrotum as noted above. There is significant tenderness to the L scrotum as well as L inguinal region. MUSCULOSKELETAL: No cyanosis, or edema. No calf tenderness BACK: Nontender without obvious deformity. No CVA tenderness. NEURO: Awake and alert. Normal speech. (Candice Sanders MD R3) A/P Assessment and Plan Patient is a pleasant 56-year-old male, with left-sided testicular pain for the past 1-2 days. Ultrasound in the ED showed, "increased blood flow within the left testicle, and epididymis suggestive of epididymoorchitis." Meeting sepsis criteria. He will be admitted for severe sepsis (lactic acid 3.1), likely related to prostate abscess. Discharge Planning Pending clinical improvement (Candice Sanders MD R3) Attending Attestation Patient seen and examined Case reviewed and discussed Agree with plan of care as discussed with me and documented in the resident note. (Sulma Dwyer MD) Problem List: (1) Sepsis Status: Acute Plan: With lactic acid of 3.1 on admission, today 1.7. Patient febrile overnight. Likely secondary to UTI in the settings of chronic Terrazas, epididymitis, orchitis and prostatic abscess. No signs of Nick's gangrene. Patient status post bolus 2, now on maintenance IV fluids. Urology consulted, will take patient to the OR for de-rosalio of prostate abscess tomorrow morning Infectious disease consulted, appreciate antibiotic recommendations. Continue patient on Vanc/Zosyn. Add Levaquin. (2) Prostate abscess Status: Acute Plan: As above (3) Orchitis and epididymitis Status: Acute Plan: As above. (4) UTI (urinary tract infection) Status: Acute Plan: UA showed: 300 glucose, trace ketones, high nitrates, high leukocyte esterase, 61 white blood cells, moderate high bacteria. Urine culture pending. Antibiotics as above. Patient will have suprapubic pubic catheter placed tomorrow. (5) Atrial fibrillation Status: Acute Plan: Patient with recent diagnosis of atrial fibrillation, EKG in the emergency department showed sinus tachycardia with nonspecific ST changes. Patient states he saw a supervisor frame sample and pattern (he cannot remember whom) who started him on Coumadin. He states he last took his Coumadin one month ago and was transitioned to aspirin because he was going to need a procedure. 2 weeks ago the aspirin was held for his procedure. Patient's INR remains elevated, most recently at 1.4. Currently being given vitamin K in preparation for the OR. Will attempt to contact pharmacy to figure out who prescribed warfarin and who the patient's supervisor frame sample and pattern is. Once this is determined, we'll consult cardiology. (6) DM (diabetes mellitus) Status: Acute Plan: Patient with history of hyperglycemia and blood sugars in the 200s while in the hospital. Continue home Levemir 10 units daily at bedtime. Started Levemir 5 units every morning. Cover with SSI. (7) Nutrition, metabolism, and development symptoms Status: Acute Plan: Nutrition: NPO at midnight tonight Electrolytes: Replete when necessary DVT ppx: Mechanical SCDs, Heparin 5,000 units sq q 8 hours. GI ppx: not indicated at this time. (Candice Sanders MD R3) Candice Sanders MD R3 May 13, 2017 13:13 Sulma Dwyer MD May 16, 2017 12:11
[2017-05-13] MEDS: VANCOMYCIN INJ 1,500 MG in SODIUM CHLORID 0.9% 500 ML INJ 500 ML IV SCH (14:04)
[2017-05-13 16:00] VITALS: BP 130/71; PULSE 113; RESP 18; TEMP 101.9; O2SAT 98
[2017-05-13] MEDS: ACETAMINOPHEN 325 MG TAB PO PRN (16:14)
--- NOTE | 2017-05-13 16:14 | HHI.IDPN ---
Subjective Subjective Remarks feels better no fever co itching Antibiotics zosyn levaquine vancomycin Allergies: Coded Allergies: No Known Allergies (Unverified , 05/11/17) Objective . Vital Signs Date Time Temp Pulse Resp B/P Pulse Ox O2 Delivery O2 Flow Rate FiO2 05/13/17 12:00 99.3 95 18 111/58 97 05/13/17 08:00 98.8 99 18 118/60 98 05/13/17 04:30 99.1 106 18 140/81 99 05/13/17 00:00 99.7 110 19 97/56 96 05/12/17 23:00 98 05/12/17 21:44 20 05/12/17 20:45 102.9 140 20 149/86 95 05/12/17 20:00 130 05/12/17 19:00 Room Air 05/12/17 05/12/17 05/13/17 15:00 23:00 07:00 Intake Total 0 ml 2451 ml 700 ml Output Total 1525 ml 1000 ml 600 ml Balance -1525 ml 1451 ml 100 ml Intake Oral 0 ml 850 ml 700 ml IV Total 1601 ml Output Urine Total 1525 ml 1000 ml 600 ml # Bowel Movements 0 0 0 . Laboratory Tests Test 05/12/17 05/13/17 07:33 07:45 White Blood Count 13.0 TH/MM3 13.7 TH/MM3 Red Blood Count 2.83 MIL/MM3 2.67 MIL/MM3 Hemoglobin 8.4 GM/DL 7.9 GM/DL Hematocrit 26.0 % 24.3 % Mean Corpuscular Volume 91.7 FL 91.2 FL Mean Corpuscular Hemoglobin 29.6 PG 29.5 PG Mean Corpuscular Hemoglobin 32.2 % 32.3 % Concent Red Cell Distribution Width 17.9 % 17.8 % Platelet Count 108 TH/MM3 102 TH/MM3 Mean Platelet Volume 10.0 FL 9.8 FL Neutrophils (%) (Auto) 93.3 % 95.5 % Lymphocytes (%) (Auto) 1.6 % 1.9 % Monocytes (%) (Auto) 5.0 % 2.3 % Eosinophils (%) (Auto) 0.0 % 0.0 % Basophils (%) (Auto) 0.1 % 0.3 % Neutrophils # (Auto) 12.2 TH/MM3 13.1 TH/MM3 Lymphocytes # (Auto) 0.2 TH/MM3 0.3 TH/MM3 Monocytes # (Auto) 0.6 TH/MM3 0.3 TH/MM3 Eosinophils # (Auto) 0.0 TH/MM3 0.0 TH/MM3 Basophils # (Auto) 0.0 TH/MM3 0.0 TH/MM3 CBC Comment DIFF FINAL DIFF FINAL Differential Comment Laboratory Tests Test 05/11/17 05/12/17 05/13/17 17:39 07:33 07:45 Lactic Acid Level 2.7 mmol/L 1.7 mmol/L Sodium Level 139 MEQ/L 142 MEQ/L Potassium Level 4.0 MEQ/L 3.9 MEQ/L Chloride Level 107 MEQ/L 112 MEQ/L Carbon Dioxide Level 22.7 MEQ/L 21.7 MEQ/L Anion Gap 9 MEQ/L 8 MEQ/L Blood Urea Nitrogen 21 MG/DL 21 MG/DL Creatinine 1.77 MG/DL 1.86 MG/DL Estimat Glomerular Filtration 48 ML/MIN 45 ML/MIN Rate Random Glucose 268 MG/DL 159 MG/DL Calcium Level 7.8 MG/DL 8.1 MG/DL Phosphorus Level 2.4 MG/DL Magnesium Level 1.7 MG/DL Total Bilirubin 0.9 MG/DL Aspartate Amino Transf 25 U/L (AST/SGOT) Alanine Aminotransferase 13 U/L (ALT/SGPT) Alkaline Phosphatase 71 U/L Total Protein 6.1 GM/DL Albumin 2.1 GM/DL Microbiology Date/Time Procedure Status Source Growth 05/11/17 12:00 Aerobic Blood Culture - Preliminary Resulted Blood Peripheral NO GROWTH IN 2 DAYS 05/11/17 12:00 Anaerobic Blood Culture - Preliminary Resulted Blood Peripheral NO GROWTH IN 2 DAYS 05/11/17 12:27 Aerobic Blood Culture - Preliminary Resulted Blood Peripheral NO GROWTH IN 2 DAYS 05/11/17 12:27 Anaerobic Blood Culture - Preliminary Resulted Blood Peripheral NO GROWTH IN 2 DAYS 05/12/17 22:10 Urine Culture - Preliminary Resulted Urine Catheterized Urine NO GROWTH IN 24 HOURS. Imaging Last Impressions Pelvis CT 05/12/17 0000 Signed Impressions: Service Date/Time: Friday, May 12, 2017 10:48 - CONCLUSION: 1. Marked circumferential thickening of the bladder with Corey catheter balloon displaced anteriorly by a bladder mass or enlarged prostate measuring up to 4.9 cm in diameter. 3.8 cm mass in the region of the left seminal vesicle. Differential diagnosis includes infection and neoplasm. 2. Bilateral hydroceles. Alex De MD Scrotum Ultrasound 05/11/17 0947 Signed Impressions: Service Date/Time: Thursday, May 11, 2017 10:14 - CONCLUSION: 1. Increased blood flow within the left testicle and epididymis suggestive of epididymoorchitis. A small left hydrocele is present. 2. Bilateral testicular microlithiasis. Glenn Hamlin MD Renal Ultrasound 05/11/17 0000 Signed Impressions: Service Date/Time: Thursday, May 11, 2017 15:56 - CONCLUSION: 1. Elevated parenchymal echogenicity of both kidneys typical of chronic parenchymal disease. No acute obstructive uropathy demonstrated. 2. Circumferential wall thickening of the urinary bladder as can be seen in the setting of cystitis. There is an enlarged prostate and an apparently separate masslike area near the bladder base which may be some prostate lobulation or a true bladder mass. CT urogram recommended when clinically feasible. Glenn Hall MD Physical Exam CONSTITUTIONAL/GENERAL: This is an adequately nourished patient, in no apparent distress. TUBES/LINES/DRAINS: SKIN: Norashes, or lesions. Scratching EYES: Pupils equal and round and reactive. Extraocular motions intact. No scleral icterus. No injection or drainage. Fundi not examined. ENT: Hearing grossly normal. Nose without bleeding or purulent drainage. Throat without visible erythema, exudates, masses, or lesions. Edentiulous CARDIOVASCULAR: Regular rate and rhythm without murmurs, gallops, or rubs. No JVD. Peripheral pulses symmetric. RESPIRATORY/CHEST: Symmetric, unlabored respirations. Clear to auscultation. Breath sounds equal bilaterally. No wheezes, rales, or rhonchi. GASTROINTESTINAL: Abdomen soft, non-tender, nondistended. No hepato-splenomegaly , or palpable masses. No guarding. Bowel sounds present. GENITOURINARY: Without palpable bladder distension. Corey catheter in place with failry clear yellow urine Penis circumcised. L testicle is enlarged and trent to palpation, unchanged since yday MUSCULOSKELETAL: Extremities without clubbing, cyanosis, or edema. No joint tenderness or effusion noted. No calf tenderness. No mottling or clubbing. LYMPHATICS: No palpable cervical or supraclavicular adenopathy. NEUROLOGICAL: Awake and alert. Non focal PSYCHIATRIC: No obvious anxiety/depression. no apparent hallucinations or other psychotic thought process. Assessment & Plan Remarks UTI in the settings of chronic corey Epydemiorchitis Prostatic abscess - surgery planned P acceptable INR Sepsis 2/2 complicated UTI - fu urine clx - cont zosyn fu urine clx - cont levaquine - dc vancomycin - agree with the plan for surgery dw pt Martha Britt MD May 13, 2017 16:14
[2017-05-13 20:00] VITALS: BP 131/67; PULSE 104; RESP 18; TEMP 99.7; O2SAT 98
[2017-05-13] MEDS: INSULIN DETEMIR 100 UNITS/ML VIAL SQ SCH (22:24)
[2017-05-14] VITALS (13 sets, daily range): BP systolic 118–159; BP diastolic 63–84; PULSE 80–112; RESP 18–25; TEMP 97.7–100.8; O2SAT 95–98
[2017-05-14] MEDS: ACETAMINOPHEN 325 MG TAB PO PRN (00:18)
[2017-05-14] MEDS: SODIUM CHLOR 0.9% 1000 ML INJ 1,000 ML IV SCH ×4 (00:18→21:05)
[2017-05-14] MEDS: LEVOFLOXACIN 750 MG PREMIX INJ 150 ML IV SCH (00:19)
[2017-05-14] MEDS: PIPERACIL-TAZO 4.5 GM PREMIX 100 ML IV SCH ×4 (02:51→20:59)
[2017-05-14 04:50] LABS: HEMATOCRIT 21.8 % (39.0-51.0); MEAN CELL VOLUME 91.2 FL (80.0-100.0); MEAN CORPUSCULAR HEMOGLOBIN 29.7 PG (27.0-34.0); MEAN CORPUSCULAR HGB CONC 32.6 % (32.0-36.0); PLATELET COUNT 94 TH/MM3 (150-450); RED CELL DISTRIBUTION WIDTH 17.9 % (11.6-17.2); WHITE BLOOD COUNT 12.5 TH/MM3 (4.0-11.0)
[2017-05-14 04:58] LABS: APTT (PATIENT) 48.1 SEC (24.3-30.1); INTERNATIONAL NORMALIZED RATIO 1.3 RATIO; PROTHROMBIN TIME - PATIENT 14.1 SEC (9.8-11.6)
[2017-05-14 04:59] LABS: REVIEW FLAG FINAL
[2017-05-14 05:07] LABS: BICARBONATE 25.4 MEQ/L (21.0-32.0); POTASSIUM 3.3 MEQ/L (3.5-5.1)
[2017-05-14] MEDS: INSULIN ASPART SUPPLEMENTAL SCALE SQ SCH ×4 (05:27→21:10)
[2017-05-14] MEDS ORDERED: BUPIVACAINE HCL PF 0.5% 30 ML VIAL ONE (06:07)
[2017-05-14] MEDS ORDERED: ACETAMINOPHEN 1000 MG/100 ML VIAL IV ONE (06:35)
[2017-05-14] MEDS ORDERED: FAMOTIDINE 20 MG/2 ML VIAL ONE (06:36)
[2017-05-14] MEDS ORDERED: DEXAMETHASONE SOD PHOS 4 MG/ML VIAL ONE (06:36)
--- NOTE | 2017-05-14 08:21 | PD.OP ---
Operative Report Date of Surgery: May 14, 2017 Preoperative Diagnosis: BPH with bladder outlet obstruction; urinary retention; seminal vesicle abscess Postoperative Diagnosis: Same Procedure: Transrectal ultrasound with drainage of seminal vesicle abscess; cystoscopy; suprapubic tube placement Surgeon: Sunil Oh Ship Carpenter(s): Jessica Resident Surgeon: None Operation and Findings: 48-year-old noncompliant male with history of diabetes and recent admission for DKA. Patient with history of urinary retention due to BPH with obstruction and large prostate with chronic indwelling Terrazas the last few months. CT scan on admission to the hospital demonstrated a seminal vesicle/prostatic abscess with left epididymal orchitis.. Decision made to bring the patient to the operating room to attempt transrectal ultrasound drainage of seminal vesicle abscess and placement of suprapubic tube. Risk and benefits were discussed with him and the family and they're willing to proceed. Patient is brought the operating room identify myself as Nima Sissy. He was placed on the operating room table in the supine position, received preprocedure antibiotics and general endotracheal tube anesthesia was administered. He was then placed in the left lateral recumbent position. Bulb syringe with normal saline was used to perform a bedside enema. The transrectal ultrasound probe was then placed into the rectum and visualization demonstrated the left seminal vesicle to appear to have some fluid within it. This was aspirated using a 22-gauge spinal needle. A small amount of fluid was drained and this was sent for culture. Not much fluid was aspirated. Decision was then made to place the patient in the dorsal lithotomy position and prepped him in the usual sterile fashion for placement of suprapubic tube. This was done and flexible cystoscopy was performed. Bilobular hypertrophy of the prostate gland was identified. Both sides of the gland were equal in dimensions. The bladder was unremarkable except for a few trabeculations. Retroflex examination showed the prostate gland protruding into the bladder. Once the bladder was filled, the Lousley retractor was placed. It was palpated in the area suprapubic tube after placement. 0.5% Marcaine was then used to use over the area of the retractor. 15 blade was used to make an incision over the the palpated and of the retractor. The Bovie cautery was then used and the retractor came to the skin. A 24 [place] Terrazas was then grasped with a retractor and pulled into the bladder. 20 cc of sterile water were placed into the balloon and the catheter was then anchored with 2-0 silk sutures to the skin. Hemostasis was obtained and dressings were applied. He tolerated the procedure well and there were no complications. He was transferred to remove in stable condition. Sunil Oh DO May 14, 2017 08:21
[2017-05-14] MEDS ORDERED: fentaNYL CITRATE 250 MCG/5 ML AMP ONE (08:27)
[2017-05-14] MEDS ORDERED: MIDAZOLAM HCL 2 MG/2 ML VIAL ONE (08:27)
[2017-05-14] MEDS ORDERED: DO NOT ADM ANY ANTICOAGULANT DRUGS PRN (08:45)
[2017-05-14] MEDS ORDERED: INSULIN DETEMIR 100 UNITS/ML VIAL SQ SCH (09:00)
[2017-05-14] MEDS: SODIUM CHLORIDE 0.9% FLUSH 10 ML FLUSH IV FLUSH SCH ×2 (09:00→21:00)
[2017-05-14] MEDS: DOCUSATE SODIUM 50 MG/SENNA 8.6 MG TAB PO SCH ×4 (09:00→21:00)
[2017-05-14] MEDS: PHYTONADIONE 10 MG/ML VIAL SQ SCH (09:00)
[2017-05-14] MEDS ORDERED: POTASSIUM CHLOR 20 MEQ PREMIX 100 ML IV SCH (09:00)
--- NOTE | 2017-05-14 09:24 | HHI.FPPN ---
Subjective Remarks Febrile overnight with a MAXIMUM TEMPERATURE of 101.9. Repeat blood cultures obtained. Patient seen after procedure. Requests the ability to eat. Has no complaints at this time. (Candice Sanders MD R3) Objective Vitals Vital Signs Date Time Temp Pulse Resp B/P Pulse Ox O2 Delivery O2 Flow Rate FiO2 05/14/17 04:00 99.0 93 18 122/65 96 05/14/17 00:00 100.8 109 18 138/77 98 05/13/17 20:00 Room Air 05/13/17 20:00 99.7 104 18 131/67 98 05/13/17 20:00 104 05/13/17 16:00 101.9 113 18 130/71 98 05/13/17 12:00 99.3 95 18 111/58 97 I/O 05/13/17 05/13/17 05/13/17 05/14/17 05/14/17 05/14/17 07:00 15:00 23:00 07:00 15:00 23:00 Intake Total 700 ml 720 ml 3406 ml Output Total 600 ml 900 ml 800 ml 800 ml Balance 100 ml -180 ml 2606 ml -800 ml Intake Oral 700 ml 720 ml 480 ml IV Total 2926 ml Output Urine Total 600 ml 900 ml 800 ml 800 ml # Bowel Movements 0 0 0 (Candice Sanders MD R3) Result Diagram: 05/14/1734305/14/17343 Objective Remarks GENERAL: wdwn male, resting in bed, family at bedside. SKIN: Warm and dry. HEAD: Normocephalic. AT EYES: No scleral icterus. No injection or drainage. ENT: OP clear. MM moist NECK: Supple, trachea midline. No JVD or lymphadenopathy. CARDIOVASCULAR: Regular rate and rhythm without murmurs, gallops, or rubs. RESPIRATORY: Breath sounds equal bilaterally. No accessory muscle use. GASTROINTESTINAL: Abdomen soft, non-tender, nondistended. : Suprapubic catheter in place, dressed. Right scrotum dressed. Dressings clean/dry/intact. MUSCULOSKELETAL: No cyanosis, or edema. No calf tenderness BACK: Nontender without obvious deformity. No CVA tenderness. NEURO: Awake and alert. Normal speech. (Candice Sanders MD R3) A/P Assessment and Plan Patient is a pleasant 56-year-old male, with left-sided testicular pain for the past 1-2 days. Ultrasound in the ED showed, "increased blood flow within the left testicle, and epididymis suggestive of epididymoorchitis." Meeting sepsis criteria. He will be admitted for severe sepsis (lactic acid 3.1), likely related to prostate abscess. Discharge Planning Pending clinical improvement (Candice Sanders MD R3) Attending Attestation Patient seen and examined Case reviewed and discussed Agree with plan of care as discussed with me and documented in the resident note. (Sulma Dwyer MD) Problem List: (1) Sepsis Status: Acute Plan: With lactic acid of 3.1 on admission, today 1.1. Patient febrile overnight. Likely secondary to UTI in the settings of chronic Terrazas, epididymitis, orchitis and prostatic abscess. No signs of Nick's gangrene. Patient status post bolus 2, now on maintenance IV fluids. Urology consulted, patient status post suprapubic catheter placement and drainage of the seminal vesicle abscess on 05/14 Infectious disease consulted, appreciate antibiotic recommendations. Continue patient on Zosyn and Levaquin. DC vancomycin. (2) Prostate abscess Status: Acute Plan: As above (3) Orchitis and epididymitis Status: Acute Plan: As above. (4) UTI (urinary tract infection) Status: Acute Plan: UA showed: 300 glucose, trace ketones, high nitrates, high leukocyte esterase, 61 white blood cells, moderate high bacteria. Urine culture pending. Antibiotics as above. Suprapubic catheter placed today. (5) Atrial fibrillation Status: Acute Plan: Patient with recent diagnosis of atrial fibrillation, EKG in the emergency department showed sinus tachycardia with nonspecific ST changes. Recently given Coumadin 5 mg for his atrial fibrillation, followed by Dr. Briceño. Plan to restart anticoagulation once patient is stable. (6) DM (diabetes mellitus) Status: Acute Plan: Patient with history of hyperglycemia and blood sugars in the 200s while in the hospital. Continue home Levemir 10 units daily at bedtime. Started Levemir 5 units every morning. Cover with SSI. His blood sugars remain elevated will increase Levemir to 10 units twice a day. (7) Nutrition, metabolism, and development symptoms Status: Acute Plan: Nutrition: Diabetic diet Electrolytes: Replete when necessary DVT ppx: Mechanical SCDs, Heparin 5,000 units sq q 8 hours will restart 24 hours after procedure. GI ppx: not indicated at this time. (Candice Sanders MD R3) Candice Sanders MD R3 May 14, 2017 09:24 Sulma Dwyer MD May 16, 2017 12:12
[2017-05-14] MEDS ORDERED: PHENYLEPH/NS 1000 MCG/10 ML SYR IV ONE (12:00)
[2017-05-14] MEDS ORDERED: PROPOFOL 200 MG/20 ML AMP IV ONE (12:00)
[2017-05-14] MEDS ORDERED: ONDANSETRON HCL 4 MG/2 ML VIAL IV PUSH ONE (12:00)
[2017-05-14] MEDS ORDERED: ePHEDrine/NS 25 MG/5 ML SYR IV ONE (12:00)
[2017-05-14] MEDS ORDERED: LACTATED RINGER'S 1000 ML INJ 1,000 ML IV ONE (12:00)
[2017-05-14] MEDS ORDERED: PHARMACY ORDERED LAB ONE (12:45)
[2017-05-14] MEDS ORDERED: POTASSIUM CHLORIDE 20 MEQ CONTROLLED RELEASE TAB PO ONE (14:45)
[2017-05-14] MEDS: oxyCODONE/ACETAMINOPHEN 10 MG/325 MG TAB PO PRN ×2 (15:50→21:01)
[2017-05-14] MEDS: INSULIN DETEMIR 100 UNITS/ML VIAL SQ SCH (21:10)
[2017-05-14] MEDS: diphenhydrAMINE HCL 50 MG CAP PO PRN (21:15)
[2017-05-15] MEDS: oxyCODONE/ACETAMINOPHEN 10 MG/325 MG TAB PO PRN ×5 (01:08→21:25)
[2017-05-15] MEDS: PIPERACIL-TAZO 4.5 GM PREMIX 100 ML IV SCH ×4 (01:11→21:21)
[2017-05-15] MEDS: LEVOFLOXACIN 750 MG PREMIX INJ 150 ML IV SCH (01:11)
[2017-05-15 03:30] VITALS: BP 131/70; PULSE 90; RESP 18; TEMP 98.4; O2SAT 96
[2017-05-15] MEDS: SODIUM CHLOR 0.9% 1000 ML INJ 1,000 ML IV SCH (04:04)
[2017-05-15 07:21] LABS: POTASSIUM 3.8 MEQ/L (3.5-5.1)
[2017-05-15 07:40] LABS: AUTOMATED NEUTROPHIL # 9.3 TH/MM3 (1.8-7.7); BASOPHIL % 0.2 % (0.0-2.0); EOSINOPHIL # 0.1 TH/MM3 (0-0.4); EOSINOPHIL % 1.3 % (0.0-4.0); HEMATOCRIT 25.9 % (39.0-51.0); LYMPHOCYTE # 0.3 TH/MM3 (1.0-4.8); MEAN CELL VOLUME 90.1 FL (80.0-100.0); MEAN CORPUSCULAR HEMOGLOBIN 29.8 PG (27.0-34.0); MEAN CORPUSCULAR HGB CONC 33.1 % (32.0-36.0); MONO % 4.9 % (0.0-8.0); NEUT % 90.6 % (16.0-70.0); PLATELET COUNT 86 TH/MM3 (150-450); RED BLOOD COUNT 2.87 MIL/MM3 (4.50-5.90); RED CELL DISTRIBUTION WIDTH 17.4 % (11.6-17.2); WHITE BLOOD COUNT 10.3 TH/MM3 (4.0-11.0)
[2017-05-15 07:55] LABS: HEMO FLAGS AUTO DIFF
[2017-05-15 08:00] VITALS: BP 137/76; PULSE 87; PULSE 88; RESP 18; TEMP 98.3; O2SAT 97
[2017-05-15] MEDS: DOCUSATE SODIUM 50 MG/SENNA 8.6 MG TAB PO SCH ×4 (08:33→21:25)
[2017-05-15] MEDS: PHYTONADIONE 10 MG/ML VIAL SQ SCH (08:33)
[2017-05-15] MEDS: SODIUM CHLORIDE 0.9% FLUSH 10 ML FLUSH IV FLUSH SCH ×2 (08:34→21:21)
[2017-05-15] MEDS: diphenhydrAMINE HCL 50 MG CAP PO PRN ×3 (08:35→21:25)
--- NOTE | 2017-05-15 08:39 | HHI.FPPN ---
Subjective Remarks No acute events overnight. Afebrile, vital signs stable. Patient continues to complain of scrotal pain although states it is improving. Has mild pain around suprapubic catheter insertion site. (Candice Sanders MD R3) Objective Vitals Vital Signs Date Time Temp Pulse Resp B/P Pulse Ox O2 Delivery O2 Flow Rate FiO2 05/15/17 03:30 98.4 90 18 131/70 96 05/14/17 23:30 98.3 88 18 139/79 96 05/14/17 20:00 Room Air 05/14/17 20:00 88 05/14/17 17:15 98.6 92 20 134/73 97 05/14/17 16:00 98.7 91 18 138/63 96 05/14/17 12:33 97.9 85 18 130/82 96 05/14/17 12:00 97.7 80 18 140/80 97 05/14/17 10:03 97.9 84 18 152/82 98 05/14/17 10:02 98.7 83 25 118/68 96 05/14/17 09:59 97.9 84 18 151/82 98 05/14/17 09:30 82 20 140/74 98 Room Air 05/14/17 09:15 85 16 122/72 97 Room Air 05/14/17 09:00 98.2 84 16 124/71 97 Room Air 05/14/17 08:45 84 16 125/75 96 Room Air I/O 05/14/17 05/14/17 05/14/17 05/15/17 05/15/17 05/15/17 07:00 15:00 23:00 07:00 15:00 23:00 Intake Total 1940 ml 1712 ml 971 ml Output Total 800 ml 1560 ml 650 ml 600 ml Balance -800 ml 380 ml 1062 ml 371 ml Intake Oral 240 ml IV Total 200 ml 1712 ml 971 ml Packed Cells 250 ml Other 1250 ml Output Urine Total 800 ml 1550 ml 650 ml 600 ml Estimated Blood Loss 10 ml # Bowel Movements 1 (Candice Sanders MD R3) Result Diagram: 05/15/1753705/15/17 0538 Objective Remarks GENERAL: wdwn male, resting in bed, family at bedside. SKIN: Warm and dry. HEAD: Normocephalic. AT EYES: No scleral icterus. No injection or drainage. ENT: OP clear. MM moist NECK: Supple, trachea midline. No JVD or lymphadenopathy. CARDIOVASCULAR: Regular rate and rhythm without murmurs, gallops, or rubs. RESPIRATORY: Breath sounds equal bilaterally. No accessory muscle use. GASTROINTESTINAL: Abdomen soft, non-tender, nondistended. : Suprapubic catheter in place, insertion area without drainage or erythema. Right scrotum mildly edematous however much improved status post or seizure. Minimal erythema and scrotal region. MUSCULOSKELETAL: No cyanosis, or edema. No calf tenderness BACK: Nontender without obvious deformity. No CVA tenderness. NEURO: Awake and alert. Normal speech. (Candice Sanders MD R3) A/P Assessment and Plan 56-year-old male admitted for sepsis secondary to urinary tract infection and scrotal abscess, status post suprapubic catheter insertion and transrectal draining of seminal vesicle abscess on 05/14. Plan as below. Discharge Planning Pending clinical improvement (Candice Sanders MD R3) Attending Attestation Patient seen and examined Case reviewed and discussed Agree with plan of care as discussed with me and documented in the resident note. (Sulma Dwyer MD) Problem List: (1) Sepsis Status: Acute Plan: With lactic acid of 3.1 on admission, currently resolved. No fevers since drainage of seminal vesicle abscess. Urology consulted, patient status post suprapubic catheter placement and drainage of the seminal vesicle abscess on 05/14 Infectious disease consulted, appreciate antibiotic recommendations. Continue patient on Zosyn and Levaquin. DC vancomycin. (2) Abscess, seminal vesicle Status: Acute Plan: Plan as above (3) UTI (urinary tract infection) Status: Acute Plan: Patient with history of urinary retention, admitted with indwelling Terrazas catheter. UA showed: 300 glucose, trace ketones, high nitrates, high leukocyte esterase, 61 white blood cells, moderate high bacteria. Urine culture pending. Antibiotics as above. Suprapubic catheter placed 05/14 (4) Thrombocytopenia Status: Acute Plan: Platelets 211 on admission, now 86. Possibly dilutional. Hit panel pending Continue to monitor, if continues to drop consider hematology consult (5) Atrial fibrillation Status: Acute Plan: Patient with recent diagnosis of atrial fibrillation, EKG in the emergency department showed sinus tachycardia with nonspecific ST changes. Recently given Coumadin 5 mg for his atrial fibrillation, followed by Dr. Briceño. Plan to restart anticoagulation once patient is stable. (6) DM (diabetes mellitus) Status: Acute Plan: Patient with history of hyperglycemia and blood sugars in the 200s while in the hospital. Reached as high as 386 overnight. Increase Levemir to 10 units twice a day. Continue with sliding scale insulin. (7) Nutrition, metabolism, and development symptoms Status: Acute Plan: Nutrition: Diabetic diet Electrolytes: Replete when necessary DVT ppx: Mechanical SCDs, Heparin 5,000 units sq q 8 hours will restart 24 hours after procedure. GI ppx: not indicated at this time. (Candice Sanders MD R3) Candice Sanders MD R3 May 15, 2017 08:39 Sulma Dwyer MD May 16, 2017 12:11
[2017-05-15] MEDS: INSULIN ASPART SUPPLEMENTAL SCALE SQ SCH ×4 (08:42→21:29)
[2017-05-15] MEDS: INSULIN DETEMIR 100 UNITS/ML VIAL SQ SCH ×3 (08:51→21:30)
[2017-05-15 09:05] LABS: ACANTHOCYTES 1+ (NORMAL); BANDS 6 % (0-6); EOSINOPHILS 1 % (0-4); OVALOCYTES 1+ (NORMAL); POLYS (SEG NEUTROPHILS) 81 % (16-70); WBC DIFF SAMPLE 100
[2017-05-15 09:06] LABS: PLATELET ESTIMATE SMEAR LOW (NORMAL); PLATELET MORPHOLOGY NORMAL (NORMAL); SCAN/DIFF FINAL DIFF MANUAL
[2017-05-15] MEDS: MAGNESIUM HYDROXIDE SUSP 30 ML CUP PO PRN (09:53)
--- NOTE | 2017-05-15 10:26 | HHI.PR ---
Subjective Patient symptoms today Pt seen and examined. Feeling much better today. No fever. Some pain at SP tube site after procedure. Objective Vital Signs Vital Signs Date Time Temp Pulse Resp B/P Pulse Ox O2 Delivery O2 Flow Rate FiO2 05/15/17 09:53 16 05/15/17 08:30 Room Air 05/15/17 08:00 98.3 88 18 137/76 97 05/15/17 03:30 98.4 90 18 131/70 96 05/14/17 23:30 98.3 88 18 139/79 96 05/14/17 20:00 Room Air 05/14/17 20:00 88 05/14/17 17:15 98.6 92 20 134/73 97 05/14/17 16:00 98.7 91 18 138/63 96 05/14/17 12:33 97.9 85 18 130/82 96 05/14/17 12:00 97.7 80 18 140/80 97 Intake & Output 05/15/17 05/15/17 07:00 19:00 Intake Total 2683 ml Output Total 1250 ml Balance 1433 ml IV Total 2683 ml Output Urine Total 1250 ml Result Diagram: 05/15/1738 05/15/17537 Objective Remarks Abd:soft,nt,nd Terrazas with clear urine Left testicle with less swelling today 05/15 Abd:soft,nt,nd SP tube with clear urine Left testicle with less swelling today Medications and IVs Current Medications Medications (Trade) Dose Ordered Sig/Preet Route Start Time Stop Time Status Last Admin (NS Flush) 2 ml UNSCH PRN IV FLUSH 05/11/17 12:45 (NS Flush) 2 ml BID IV FLUSH 05/11/17 12:45 05/15/17 08:34 (Dilaudid Pf Inj) 1 mg Q4H PRN IV 05/11/17 13:45 (Zofran Inj) 4 mg Q6H PRN IVP 05/11/17 13:45 (Narcan Inj) 0.4 mg UNSCH PRN IV 05/11/17 13:45 (Itna-Colace) 1 tab BID PO 05/11/17 21:00 05/15/17 08:35 (Percocet 10-325 Mg) 1 tab Q4H PRN PO 05/11/17 13:45 05/13/17 08:54 Oxycodone/ Acetaminophen 2 tab 2 tab Q4H PRN PO 05/11/17 13:45 05/15/17 08:37 (Zosyn 4.5 Gm Premix) 100 ml @ 200 mls/hr Q6H IV 05/11/17 20:00 05/15/17 08:34 (D50w (Vial) Inj) 50 ml UNSCH PRN IV 05/11/17 13:45 (Glucagon Inj) 1 mg UNSCH PRN OTHER 05/11/17 13:45 (Tylenol) 650 mg Q4H PRN PO 05/11/17 17:30 05/14/17 00:18 (Levemir Inj) 10 units HS SQ 05/12/17 21:00 05/14/17 21:10 Phytonadione 10 mg 10 mg DAILY SQ 05/12/17 14:45 05/15/17 08:33 (Levaquin 750 Mg Premix Inj) 150 ml @ 100 mls/hr Q24H IV 05/13/17 00:00 05/15/17 01:11 (Tina-Colace) 2 tab BID PO 05/14/17 14:45 05/14/17 21:00 (Benadryl) 50 mg Q6H PRN PO 05/14/17 20:45 05/15/17 08:35 (Levemir Inj) 10 units Q12HR SQ 05/15/17 09:00 05/15/17 08:51 (Milk Of Magnesia Liq) 30 ml DAILY PRN PO 05/15/17 09:00 05/15/17 09:53 Assessment and Plan Assessment and Plan 56 y.o non-compliant male with left epididymalorchitis and prostatic/seminal vesicle abcess Continue Vit K to correct PT/INR For unroofing of abcess in AM tomorrow and SP tube insertion Continue IV ABX NPO after MN 05/15 56 y.o non-compliant male with left epididymalorchitis and prostatic/seminal vesicle abcess s/p SP tube insertion with aspiration of seminal vesicle abcess Continue IV ABX Maintain SP tube Needs w/u for anemia and ARF Pt will need SPP in 3-4 months after he is medically optimized and infection has resulted. Sunil Oh DO May 15, 2017 10:26
[2017-05-15 12:00] VITALS: BP 138/89; PULSE 89; RESP 20; TEMP 98; O2SAT 98
[2017-05-15 16:00] VITALS: BP 163/95; PULSE 98; RESP 18; TEMP 98.4; O2SAT 95
--- NOTE | 2017-05-15 19:27 | HHI.IDPN ---
Subjective Subjective Remarks sp unroofing of prostatic abscess (transrectal, placement of SP cath no fever panel machine tender testicle growing GNB Antibiotics zosyn levaquine vancomycin Allergies: Coded Allergies: No Known Allergies (Unverified , 05/11/17) Objective . Vital Signs Date Time Temp Pulse Resp B/P Pulse Ox O2 Delivery O2 Flow Rate FiO2 05/15/17 18:06 16 05/15/17 16:00 98.4 98 18 163/95 95 05/15/17 12:00 98.0 89 20 138/89 98 05/15/17 08:30 Room Air 05/15/17 08:00 87 05/15/17 08:00 98.3 88 18 137/76 97 05/15/17 03:30 98.4 90 18 131/70 96 05/14/17 23:30 98.3 88 18 139/79 96 05/14/17 20:00 Room Air 05/14/17 20:00 88 05/14/17 05/14/17 05/15/17 15:00 23:00 07:00 Intake Total 1940 ml 1712 ml 971 ml Output Total 1560 ml 650 ml 600 ml Balance 380 ml 1062 ml 371 ml Intake Oral 240 ml IV Total 200 ml 1712 ml 971 ml Packed Cells 250 ml Other 1250 ml Output Urine Total 1550 ml 650 ml 600 ml Estimated Blood Loss 10 ml # Bowel Movements 1 . Laboratory Tests Test 05/14/17 05/15/17 03:44 05:38 White Blood Count 12.5 TH/MM3 10.3 TH/MM3 Red Blood Count 2.40 MIL/MM3 2.87 MIL/MM3 Hemoglobin 7.1 GM/DL 8.6 GM/DL Hematocrit 21.8 % 25.9 % Mean Corpuscular Volume 91.2 FL 90.1 FL Mean Corpuscular Hemoglobin 29.7 PG 29.8 PG Mean Corpuscular Hemoglobin 32.6 % 33.1 % Concent Red Cell Distribution Width 17.9 % 17.4 % Platelet Count 94 TH/MM3 86 TH/MM3 Mean Platelet Volume 9.6 FL 9.1 FL Neutrophils (%) (Auto) 90.6 % Lymphocytes (%) (Auto) 3.0 % Monocytes (%) (Auto) 4.9 % Eosinophils (%) (Auto) 1.3 % Basophils (%) (Auto) 0.2 % Neutrophils # (Auto) 9.3 TH/MM3 Lymphocytes # (Auto) 0.3 TH/MM3 Monocytes # (Auto) 0.5 TH/MM3 Eosinophils # (Auto) 0.1 TH/MM3 Basophils # (Auto) 0.0 TH/MM3 CBC Comment AUTO DIFF Differential Total Cells 100 Counted Neutrophils % (Manual) 81 % Band Neutrophils % 6 % Lymphocytes % 7 % Monocytes % 5 % Eosinophils % 1 % Neutrophils # (Manual) 9.0 TH/MM3 Differential Comment FINAL DIFF MANUAL Platelet Estimate LOW Platelet Morphology Comment NORMAL Ovalocytes 1+ Acanthocytes 1+ Laboratory Tests Test 05/14/17 05/14/17 05/15/17 03:44 03:53 05:38 Sodium Level 144 MEQ/L 144 MEQ/L Potassium Level 3.3 MEQ/L 3.8 MEQ/L Chloride Level 109 MEQ/L 112 MEQ/L Carbon Dioxide Level 25.4 MEQ/L 23.0 MEQ/L Anion Gap 10 MEQ/L 9 MEQ/L Blood Urea Nitrogen 16 MG/DL 14 MG/DL Creatinine 1.69 MG/DL 1.67 MG/DL Estimat Glomerular Filtration 51 ML/MIN 51 ML/MIN Rate Random Glucose 100 MG/DL 120 MG/DL Calcium Level 8.5 MG/DL 8.0 MG/DL Lactic Acid Level 1.1 mmol/L Microbiology Date/Time Procedure Status Source Growth 05/12/17 22:10 Urine Culture - Final Complete Urine Catheterized Urine NO GROWTH IN 48 HOURS. 05/14/17 03:34 Aerobic Blood Culture - Preliminary Resulted Blood Peripheral NO GROWTH IN 1 DAY 05/14/17 03:34 Anaerobic Blood Culture - Preliminary Resulted Blood Peripheral NO GROWTH IN 1 DAY 05/14/17 03:53 Aerobic Blood Culture - Preliminary Resulted Blood Peripheral NO GROWTH IN 1 DAY 05/14/17 03:53 Anaerobic Blood Culture - Preliminary Resulted Blood Peripheral NO GROWTH IN 1 DAY 05/14/17 07:57 Gram Stain - Final Resulted Fluid Other 05/14/17 07:57 Body Fluid Culture - Preliminary Resulted Gram Negative Francisco 05/14/17 07:57 Acid Fast Stain - Final Resulted Fluid Other NO ACID FAST BACILLI SEEN 05/14/17 07:57 Mycobacterial Culture Resulted Fluid Other Pending 05/14/17 07:57 Fungal Smear - Final Resulted Fluid Other NO FUNGAL ELEMENTS SEEN. 05/14/17 07:57 Fungal Culture Resulted Fluid Other Pending Imaging Last Impressions Pelvis CT 05/12/17 0000 Signed Impressions: Service Date/Time: Friday, May 12, 2017 10:48 - CONCLUSION: 1. Marked circumferential thickening of the bladder with Corey catheter balloon displaced anteriorly by a bladder mass or enlarged prostate measuring up to 4.9 cm in diameter. 3.8 cm mass in the region of the left seminal vesicle. Differential diagnosis includes infection and neoplasm. 2. Bilateral hydroceles. Alex De MD Scrotum Ultrasound 05/11/17 0947 Signed Impressions: Service Date/Time: Thursday, May 11, 2017 10:14 - CONCLUSION: 1. Increased blood flow within the left testicle and epididymis suggestive of epididymoorchitis. A small left hydrocele is present. 2. Bilateral testicular microlithiasis. Glenn Hamlin MD Renal Ultrasound 05/11/17 0000 Signed Impressions: Service Date/Time: Thursday, May 11, 2017 15:56 - CONCLUSION: 1. Elevated parenchymal echogenicity of both kidneys typical of chronic parenchymal disease. No acute obstructive uropathy demonstrated. 2. Circumferential wall thickening of the urinary bladder as can be seen in the setting of cystitis. There is an enlarged prostate and an apparently separate masslike area near the bladder base which may be some prostate lobulation or a true bladder mass. CT urogram recommended when clinically feasible. Glenn Hall MD Physical Exam CONSTITUTIONAL/GENERAL: This is an adequately nourished patient, in no apparent distress. TUBES/LINES/DRAINS: SKIN: Norashes, or lesions. EYES: No scleral icterus. No injection or drainage. Fundi not examined. CARDIOVASCULAR: Regular rate and rhythm without murmurs, gallops, or rubs. No JVD. Peripheral pulses symmetric. RESPIRATORY/CHEST: Symmetric, unlabored respirations. Clear to auscultation. Breath sounds equal bilaterally. No wheezes, rales, or rhonchi. GASTROINTESTINAL: Abdomen soft, non-tender, nondistended. No hepato-splenomegaly , or palpable masses. No guarding. Bowel sounds present. GENITOURINARY: Without palpable bladder distension. SP catheter in place with failry clear yellow urine L testicle is enlarged and less tender to palpation, but still quite indurated MUSCULOSKELETAL: Extremities without clubbing, cyanosis, or edema. No joint tenderness or effusion noted. No calf tenderness. No mottling or clubbing. LYMPHATICS: No palpable cervical or supraclavicular adenopathy. NEUROLOGICAL: Awake and alert. Non focal PSYCHIATRIC: No obvious anxiety/depression. no apparent hallucinations or other psychotic thought process. Assessment & Plan Remarks UTI in the settings of chronic corey Epydemiorchitis Prostatic abscess - sp unroofing - growing GNB Sepsis 2/2 complicated UTI - fu urine clx - cont zosyn -cont levaquine -fu surgical culture report dw pt Martha Britt MD May 15, 2017 19:27
[2017-05-15 20:00] VITALS: BP 165/88; PULSE 101; PULSE 95; RESP 16; TEMP 98.7; O2SAT 96
[2017-05-16] VITALS: BP 158/80; PULSE 102; RESP 20; TEMP 99.3; O2SAT 95
[2017-05-16] MEDS: LEVOFLOXACIN 750 MG PREMIX INJ 150 ML IV SCH (01:13)
[2017-05-16] MEDS: PIPERACIL-TAZO 4.5 GM PREMIX 100 ML IV SCH ×2 (01:42→08:40)
[2017-05-16] MEDS: oxyCODONE/ACETAMINOPHEN 10 MG/325 MG TAB PO PRN ×5 (01:42→23:23)
[2017-05-16 04:00] VITALS: BP 159/88; PULSE 103; RESP 20; TEMP 99.2; O2SAT 95
[2017-05-16] MEDS: SODIUM CHLORIDE 0.9% FLUSH 10 ML FLUSH IV FLUSH PRN (05:31)
[2017-05-16] MEDS: INSULIN ASPART SUPPLEMENTAL SCALE SQ SCH ×4 (05:42→20:43)
[2017-05-16] MEDS: diphenhydrAMINE HCL 50 MG CAP PO PRN (07:45)
[2017-05-16 08:00] VITALS: BP 167/86; PULSE 91; PULSE 92; RESP 20; TEMP 98.6; O2SAT 94
[2017-05-16] MEDS: DOCUSATE SODIUM 50 MG/SENNA 8.6 MG TAB PO SCH ×4 (08:39→20:42)
[2017-05-16] MEDS: MAGNESIUM HYDROXIDE SUSP 30 ML CUP PO PRN (08:39)
[2017-05-16] MEDS: SODIUM CHLORIDE 0.9% FLUSH 10 ML FLUSH IV FLUSH SCH ×2 (08:40→20:43)
[2017-05-16] MEDS: PHYTONADIONE 10 MG/ML VIAL SQ SCH (08:40)
[2017-05-16] MEDS: INSULIN DETEMIR 100 UNITS/ML VIAL SQ SCH ×2 (08:48→20:52)
[2017-05-16 08:52] LABS: AUTOMATED NEUTROPHIL # 8.3 TH/MM3 (1.8-7.7); BASOPHIL % 0.3 % (0.0-2.0); EOSINOPHIL # 0.1 TH/MM3 (0-0.4); EOSINOPHIL % 1.4 % (0.0-4.0); HEMATOCRIT 26.8 % (39.0-51.0); LYMPHOCYTE # 0.5 TH/MM3 (1.0-4.8); MEAN CELL VOLUME 90.3 FL (80.0-100.0); MEAN CORPUSCULAR HEMOGLOBIN 29.3 PG (27.0-34.0); MEAN CORPUSCULAR HGB CONC 32.5 % (32.0-36.0); MONO % 8.4 % (0.0-8.0); NEUT % 84.9 % (16.0-70.0); PLATELET COUNT 98 TH/MM3 (150-450); RED BLOOD COUNT 2.97 MIL/MM3 (4.50-5.90); RED CELL DISTRIBUTION WIDTH 17.4 % (11.6-17.2); WHITE BLOOD COUNT 9.8 TH/MM3 (4.0-11.0)
[2017-05-16 08:57] LABS: HEMO FLAGS AUTO DIFF
[2017-05-16 08:58] LABS: ANION GAP 9 MEQ/L (5-15); BICARBONATE 23.8 MEQ/L (21.0-32.0); BLOOD UREA NITROGEN 11 MG/DL (7-18); CHLORIDE 111 MEQ/L (98-107); POTASSIUM 3.3 MEQ/L (3.5-5.1); SODIUM (NA) 144 MEQ/L (136-145)
[2017-05-16 09:00] LABS: GLOMERULAR FILTRATION RATE 57 ML/MIN (>89)
[2017-05-16 09:06] LABS: ALKALINE PHOSPHATASE 164 U/L (45-117); ALT (GPT) 7 U/L (12-78); TOTAL BILIRUBIN ADULT 0.6 MG/DL (0.2-1.0)
[2017-05-16 09:19] LABS: AST (GOT) 22 U/L (15-37)
[2017-05-16 09:50] LABS: SCAN/DIFF AUTO DIFF CONFIRMED
[2017-05-16] MEDS ORDERED: POTASSIUM CHLORIDE 20 MEQ CONTROLLED RELEASE TAB PO ONE (11:30)
[2017-05-16] MEDS ORDERED: MORPHINE SULFATE 4 MG/ML INJ IV PUSH PRN (11:30)
--- NOTE | 2017-05-16 11:35 | HHI.FPPN ---
Subjective Remarks No acute events overnight. Afebrile, vital signs stable. Patient was disoriented this morning however was able to be redirected. Currently cooperative and alert and oriented. He continues to complain of scrotal pain, worse when he moves. (Candice Sanders MD R3) Objective Vitals Vital Signs Date Time Temp Pulse Resp B/P Pulse Ox O2 Delivery O2 Flow Rate FiO2 05/16/17 08:30 Room Air 05/16/17 08:00 91 05/16/17 04:00 Room Air 05/16/17 04:00 99.2 103 20 159/88 95 05/16/17 00:00 99.3 102 20 158/80 95 05/16/17 00:00 Room Air 05/15/17 20:00 101 05/15/17 20:00 98.7 95 16 165/88 96 05/15/17 20:00 Room Air 05/15/17 18:06 16 05/15/17 16:00 98.4 98 18 163/95 95 05/15/17 12:00 98.0 89 20 138/89 98 I/O 05/15/17 05/15/17 05/15/17 05/16/17 05/16/17 05/16/17 07:00 15:00 23:00 07:00 15:00 23:00 Intake Total 971 ml 1160 ml Output Total 600 ml 575 ml 750 ml 600 ml Balance 371 ml 585 ml -750 ml -600 ml Intake Oral 960 ml IV Total 971 ml 200 ml Output Urine Total 600 ml 575 ml 750 ml 600 ml # Bowel Movements 0 (Candice Sanders MD R3) Result Diagram: 05/16/1758 05/16/17 0658 Objective Remarks GENERAL: wdwn male, resting in bed, family at bedside. SKIN: Warm and dry. HEAD: Normocephalic. AT EYES: No scleral icterus. No injection or drainage. ENT: OP clear. MM moist NECK: Supple, trachea midline. No JVD or lymphadenopathy. CARDIOVASCULAR: Regular rate and rhythm without murmurs, gallops, or rubs. RESPIRATORY: Breath sounds equal bilaterally. No accessory muscle use. GASTROINTESTINAL: Abdomen soft, non-tender, nondistended. : Suprapubic catheter in place, insertion area without drainage or erythema. Right scrotum mildly edematous however much improved status post procedure. Minimal erythema around scrotal region. MUSCULOSKELETAL: No cyanosis, or edema. No calf tenderness BACK: Nontender without obvious deformity. No CVA tenderness. NEURO: Awake and alert. Normal speech. (Candice Sanders MD R3) A/P Assessment and Plan 56-year-old male admitted for sepsis secondary to urinary tract infection and scrotal abscess, status post suprapubic catheter insertion and transrectal draining of seminal vesicle abscess on 05/14. Plan as below. Discharge Planning Pending clinical improvement (Candice Sanders MD R3) Attending Attestation Patient seen and examined Case reviewed and discussed Agree with plan of care as discussed with me and documented in the resident note. (Sulma Dwyer MD) Problem List: (1) Sepsis Status: Acute Plan: With lactic acid of 3.1 on admission, currently resolved. No fevers since drainage of seminal vesicle abscess. Culture of fluid positive for ESBL Escherichia coli. Sensitive to Zosyn. Urology consulted, patient status post suprapubic catheter placement and drainage of the seminal vesicle abscess on 05/14 Infectious disease consulted, appreciate antibiotic recommendations. Continue patient on Zosyn and Levaquin. DC vancomycin. (2) Abscess, seminal vesicle Status: Acute Plan: Plan as above (3) UTI (urinary tract infection) Status: Acute Plan: Patient with history of urinary retention, admitted with indwelling Terrazas catheter. UA showed: 300 glucose, trace ketones, high nitrates, high leukocyte esterase, 61 white blood cells, moderate high bacteria. Urine culture pending. Antibiotics as above. Suprapubic catheter placed 05/14 (4) Thrombocytopenia Status: Acute Plan: Platelets 211 on admission, now 98. Improved from yesterday. Possibly dilutional. Hit panel pending Continue to monitor, if continues to drop consider hematology consult (5) Anemia Status: Acute Plan: Unclear if acute or chronic. Patient with stable H&H. Iron studies pending. (6) Atrial fibrillation Status: Acute Plan: Patient with recent diagnosis of atrial fibrillation, EKG in the emergency department showed sinus tachycardia with nonspecific ST changes. Recently given Coumadin 5 mg for his atrial fibrillation, followed by Dr. Briceño. Plan to restart anticoagulation once patient is stable. (7) DM (diabetes mellitus) Status: Acute Plan: Increased Levemir yesterday to 10 units twice a day with good response. Patient blood sugars now controlled. Continue sliding scale insulin. (8) Nutrition, metabolism, and development symptoms Status: Acute Plan: Nutrition: Diabetic diet Electrolytes: Replete when necessary DVT ppx: Mechanical SCDs, Heparin 5,000 units sq q 8 hours will restart 24 hours after procedure. GI ppx: not indicated at this time. (Candice Sanders MD R3) Candice Sanders MD R3 May 16, 2017 11:35 Sulma Dwyer MD May 16, 2017 12:11
[2017-05-16 12:00] VITALS: BP 178/76; PULSE 100; RESP 20; TEMP 98.9; O2SAT 94
[2017-05-16] MEDS ORDERED: MISCELLANEOUS PHARMACY INFORMATION XX PRN (12:15)
[2017-05-16] MEDS ORDERED: ASP: Documented ESBL, MDR A baumannii or P. aeruginosa PRN (12:15)
[2017-05-16 12:40] LABS: TRANSFERRIN IRON PROFILE 97 MG/DL (200-360)
[2017-05-16 14:30] LABS: HEPARIN AB OD 0.091 O.D. (0.000-0.300); HEPARIN INDUCED PLATELET AB NEG (NEGATIVE)
[2017-05-16] MEDS: ERTAPENEM INJ 1,000 MG in SODIUM CHLORIDE 0.9% INJ 100 ML IV SCH (14:51)
[2017-05-16] MEDS ORDERED: hydrALAZINE HCL 20 MG/ML VIAL IV PUSH PRN (15:15)
[2017-05-16 16:00] VITALS: BP 201/97; PULSE 99; RESP 18; TEMP 99.2; O2SAT 92
--- NOTE | 2017-05-16 16:00 | RADRPT ---
EXAM DATE/TIME: 05/16/2017 13:57 [facility] COMPARISON: US KIDNEY/RENAL/BLADDER, May 11, 2017, 15:56. INDICATIONS : Increased BUN/creatinine. MEDICAL HISTORY : Benign prostatic hyperplasia, (BPH) Diabetes mellitus type 2. Hypertension. Hyperlipidemia. Abdominal pain. Headache. Hematuria. Dysuria. Incontinence. SURGICAL HISTORY : None. ENCOUNTER: Subsequent ACUITY: 1 week PAIN SCORE: 8/10 LOCATION: Bilateral flank MEASUREMENTS: RIGHT KIDNEY: 12.4 x 5.3 x 5.1 cm LEFT KIDNEY: 12.4 x 4.4 x 5.1 cm FINDINGS: RIGHT KIDNEY: The echotexture of the renal cortex is mildly elevated. There is a 0.7 x 0.3 x 0.8 CM stone evident w ithin the collecting system. There is no hydronephrosis. No solid mass is seen. LEFT KIDNEY: The renal cortex is mildly echogenic. There is no hydronephrosis. No renal mass is identified. BLADDER: There is a Terrazas catheter within the bladder. CONCLUSION: 1. Echogenic renal cortex suggesting underlying medical renal disease. 2. Incidental 8 mm stone seen on the right. 3. No findings to indicate renal obstruction. 4. Very minimal amount of free fluid adjacent to the liver margin. Beka Rodriguez MD on May 16, 2017 at 15:55 Board Certified Radiologist. This report was verified electronically.
--- NOTE | 2017-05-16 18:38 | HHI.IDPN ---
Subjective Subjective Remarks + low grade fever co tender testicle growing ESBL+ E.coli, switched to Ertapenem co L side abd pain no diarrhea last BM 2 days ago Antibiotics Ertapenem Allergies: Coded Allergies: No Known Allergies (Unverified , 05/11/17) Objective . Vital Signs Date Time Temp Pulse Resp B/P Pulse Ox O2 Delivery O2 Flow Rate FiO2 05/16/17 16:00 Room Air 05/16/17 16:00 99.2 99 18 201/97 92 05/16/17 12:00 98.9 100 20 178/76 94 05/16/17 12:00 Room Air 05/16/17 08:30 Room Air 05/16/17 08:00 98.6 92 20 167/86 94 05/16/17 08:00 91 05/16/17 04:00 Room Air 05/16/17 04:00 99.2 103 20 159/88 95 05/16/17 00:00 99.3 102 20 158/80 95 05/16/17 00:00 Room Air 05/15/17 20:00 101 05/15/17 20:00 98.7 95 16 165/88 96 05/15/17 20:00 Room Air 05/15/17 05/15/17 05/16/17 15:00 23:00 07:00 Intake Total 1160 ml Output Total 575 ml 750 ml 600 ml Balance 585 ml -750 ml -600 ml Intake Oral 960 ml IV Total 200 ml Output Urine Total 575 ml 750 ml 600 ml # Bowel Movements 0 . Laboratory Tests Test 05/15/17 05/16/17 05:38 06:58 White Blood Count 10.3 TH/MM3 9.8 TH/MM3 Red Blood Count 2.87 MIL/MM3 2.97 MIL/MM3 Hemoglobin 8.6 GM/DL 8.7 GM/DL Hematocrit 25.9 % 26.8 % Mean Corpuscular Volume 90.1 FL 90.3 FL Mean Corpuscular Hemoglobin 29.8 PG 29.3 PG Mean Corpuscular Hemoglobin 33.1 % 32.5 % Concent Red Cell Distribution Width 17.4 % 17.4 % Platelet Count 86 TH/MM3 98 TH/MM3 Mean Platelet Volume 9.1 FL 8.9 FL Neutrophils (%) (Auto) 90.6 % 84.9 % Lymphocytes (%) (Auto) 3.0 % 5.0 % Monocytes (%) (Auto) 4.9 % 8.4 % Eosinophils (%) (Auto) 1.3 % 1.4 % Basophils (%) (Auto) 0.2 % 0.3 % Neutrophils # (Auto) 9.3 TH/MM3 8.3 TH/MM3 Lymphocytes # (Auto) 0.3 TH/MM3 0.5 TH/MM3 Monocytes # (Auto) 0.5 TH/MM3 0.8 TH/MM3 Eosinophils # (Auto) 0.1 TH/MM3 0.1 TH/MM3 Basophils # (Auto) 0.0 TH/MM3 0.0 TH/MM3 CBC Comment AUTO DIFF AUTO DIFF Differential Total Cells 100 Counted Neutrophils % (Manual) 81 % Band Neutrophils % 6 % Lymphocytes % 7 % Monocytes % 5 % Eosinophils % 1 % Neutrophils # (Manual) 9.0 TH/MM3 Differential Comment FINAL DIFF AUTO DIFF MANUAL CONFIRMED Platelet Estimate LOW Platelet Morphology Comment NORMAL Ovalocytes 1+ Acanthocytes 1+ Blood Smear Pathologist Review Laboratory Tests Test 05/15/17 05/16/17 05/16/17 05:38 06:55 06:58 Sodium Level 144 MEQ/L 144 MEQ/L Potassium Level 3.8 MEQ/L 3.3 MEQ/L Chloride Level 112 MEQ/L 111 MEQ/L Carbon Dioxide Level 23.0 MEQ/L 23.8 MEQ/L Anion Gap 9 MEQ/L 9 MEQ/L Blood Urea Nitrogen 14 MG/DL 11 MG/DL Creatinine 1.67 MG/DL 1.53 MG/DL Estimat Glomerular Filtration 51 ML/MIN 57 ML/MIN Rate Random Glucose 120 MG/DL 79 MG/DL Calcium Level 8.0 MG/DL 8.5 MG/DL Iron Level 15 MCG/DL Total Iron Binding Capacity 136 MCG/DL Percent Iron Saturation 11.0 % Total Bilirubin 0.6 MG/DL Aspartate Amino Transf 22 U/L (AST/SGOT) Alanine Aminotransferase 7 U/L (ALT/SGPT) Alkaline Phosphatase 164 U/L Total Protein 6.1 GM/DL Albumin 1.7 GM/DL Microbiology Date/Time Procedure Status Source Growth 05/14/17 03:34 Aerobic Blood Culture - Preliminary Resulted Blood Peripheral NO GROWTH IN 2 DAYS 05/14/17 03:34 Anaerobic Blood Culture - Preliminary Resulted Blood Peripheral NO GROWTH IN 2 DAYS 05/14/17 03:53 Aerobic Blood Culture - Preliminary Resulted Blood Peripheral NO GROWTH IN 2 DAYS 05/14/17 03:53 Anaerobic Blood Culture - Preliminary Resulted Blood Peripheral NO GROWTH IN 2 DAYS 05/14/17 07:57 Gram Stain - Final Complete Fluid Other 05/14/17 07:57 Body Fluid Culture - Final Complete Escherichia Coli Esbl Positive 05/14/17 07:57 Acid Fast Stain - Final Resulted Fluid Other NO ACID FAST BACILLI SEEN 05/14/17 07:57 Mycobacterial Culture Resulted Fluid Other Pending 05/14/17 07:57 Fungal Smear - Final Resulted Fluid Other NO FUNGAL ELEMENTS SEEN. 05/14/17 07:57 Fungal Culture Resulted Fluid Other Pending Imaging Last Impressions Renal Ultrasound 05/16/17 0000 Signed Impressions: Service Date/Time: April 13:57 - CONCLUSION: 1. Echogenic renal cortex suggesting underlying medical renal disease. 2. Incidental 8 mm stone seen on the right. 3. No findings to indicate renal obstruction. 4. Very minimal amount of free fluid adjacent to the liver margin. Beka Rodriguez MD Pelvis CT 05/12/17 0000 Signed Impressions: Service Date/Time: Friday, May 12, 2017 10:48 - CONCLUSION: 1. Marked circumferential thickening of the bladder with Corey catheter balloon displaced anteriorly by a bladder mass or enlarged prostate measuring up to 4.9 cm in diameter. 3.8 cm mass in the region of the left seminal vesicle. Differential diagnosis includes infection and neoplasm. 2. Bilateral hydroceles. Alex De MD Scrotum Ultrasound 05/11/17 0947 Signed Impressions: Service Date/Time: Thursday, May 11, 2017 10:14 - CONCLUSION: 1. Increased blood flow within the left testicle and epididymis suggestive of epididymoorchitis. A small left hydrocele is present. 2. Bilateral testicular microlithiasis. Glenn Hamlin MD Physical Exam CONSTITUTIONAL/GENERAL: This is an adequately nourished patient, in no apparent distress. TUBES/LINES/DRAINS: SKIN: No rashes, or lesions. EYES: No scleral icterus. No injection or drainage. Fundi not examined. CARDIOVASCULAR: Regular rate and rhythm without murmurs, gallops, or rubs. No JVD. Peripheral pulses symmetric. RESPIRATORY/CHEST: Symmetric, unlabored respirations. Clear to auscultation. Breath sounds equal bilaterally. No wheezes, rales, or rhonchi. GASTROINTESTINAL: Abdomen soft, mikldly tender LLQ, distended. No hepato- splenomegaly, or palpable masses. No guarding. Bowel sounds present. GENITOURINARY: Without palpable bladder distension. SP catheter in place with failry clear yellow urine L testicle seems even more enlarged firm and tender to palpation MUSCULOSKELETAL: Extremities without clubbing, cyanosis, or edema. No joint tenderness or effusion noted. No calf tenderness. No mottling or clubbing. LYMPHATICS: No palpable cervical or supraclavicular adenopathy. NEUROLOGICAL: Awake and alert. Non focal PSYCHIATRIC: No obvious anxiety/depression. no apparent hallucinations or other psychotic thought process. Assessment & Plan Remarks UTI in the settings of chronic corey Epydemiorchitis Prostatic abscess - sp unroofing - - ESBL + E.coli Sepsis 2/2 complicated UTI, clinically resolved - zosyn, levaquine were stopped - Ertapenem started - anticipate 6 wks PICC dw pt Martha Bender RN, MD May 16, 2017 18:37
[2017-05-16 20:00] VITALS: BP 170/78; PULSE 109; RESP 20; TEMP 99.5; O2SAT 95
[2017-05-16] MEDS: FERROUS SULFATE 325 MG (65 MG ELEMENTAL IRON) TAB PO SCH (20:42)
--- NOTE | 2017-05-16 20:48 | MB ---
cc: LUIS DORMAN MD DATE OF CONSULTATION: 05/16/2017 HEMATOLOGY/ONCOLOGY CONSULTATION NOTE DATE OF : 1960. CONSULT REQUESTED BY Hospitalist Service. REASON FOR CONSULTATION Anemia and thrombocytopenia. CHIEF COMPLAINT The patient reports developing severe pain in the scrotum about five days ago. He presented to the hospital for further workup and management. Additionally, he had months of gross hematuria secondary to a chronic indwelling Terrazas catheter. HISTORY OF PRESENT ILLNESS Mr. Sheehan is a 56-year-old male who is originally from the [facility]. Mr. Sheehan reports being in his usual good state of health up until 2014 when he felt weak and tired and was having difficulty urinating. He reports being evaluated at [facility] in [facility] and at the time was diagnosed with diabetes and urinary retention due to a massively enlarged prostate. He tells me he underwent transurethral prostate debulking surgery at [facility]. Following that he tells me he has been chronically retaining urine and therefore a Terrazas catheter has been in place since 2014. Over the past few months, he has had gross hematuria which the patient describes as almost the consistency of red blood. He tells me the bleeding had been almost continuous until he established followup with Dr. Oh. The patient was initiated on certain medications (he cannot recall which ones) but the hematuria eventually resolved. Dr. Oh had recommended outpatient placement of a suprapubic catheter so the Terrazas catheter could be removed. However, prior to that procedure Mr. Sheehan developed sudden onset severe scrotal pain. This was associated with fevers and chills, he therefore came into [facility]. The patient underwent imaging studies including ultrasound of the scrotum and pelvic CT scan, and imaging findings were consistent with circumferential thickening of the bladder with Terrazas catheter balloon displaced anteriorly by bladder mass or enlarged prostate. The findings were concerning for possible infection versus neoplasm. A scrotal ultrasound was also done at the time of admission and the patient was noted to have increased blood flow to the left testicle and epididymitis suggestive of epididymo-orchitis and small left-sided hydrocele. The patient underwent a transrectal ultrasound with drainage of the seminal vesicle abscess along with cystoscopy and suprapubic catheter placement; this was performed on 05/14/2017. He has also been receiving antibiotic therapy with ertrapenem for management of what was later found to be an E. Coli abscess of the scrotum. The hematology service has been asked to see him for persistent anemia and thrombocytopenia. PAST MEDICAL HISTORY 1. Type 2 diabetes. 2. Prostatic enlargement. 3. Urinary outflow obstruction. 4. Hypertension. 5. Peripheral artery disease. PAST SURGICAL HISTORY 1. Transurethral resection of prostate for BPH in 2014. 2. Suprapubic catheter placement earlier in April of 2017. FAMILY HISTORY Parents are both , father at a young age, mom in her 80s. SOCIAL HISTORY The patient lives at home alone. He formerly worked at a pharmacy. He has two children age 10 and 13, but they do not live with him. The patient denies alcohol or tobacco abuse. ALLERGIES NO KNOWN DRUG ALLERGIES. REVIEW OF SYSTEMS CONSTITUTIONAL: Fevers, weakness, fatigue, decreased appetite. HEENT: Denies headaches, blurry vision or difficulty swallowing. 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 RESPIRATORY: Reports difficulty breathing with minimal exertion. Denies cough or hemoptysis. CARDIOVASCULAR: Denies angina-like chest pain, PND or orthopnea. Reports palpitations. GASTROINTESTINAL: Denies nausea, vomiting, diarrhea, hematochezia or melena. UROGENITAL: Reports gross hematuria, urinary outflow obstruction, chronic Terrazas catheter requirement. The urine being drained is clear and straw-colored. METAL HARDENER: Denies any focal sensory or motor deficits. MUSCULOSKELETAL: Denies any focal aches or pains that are acute. PHYSICAL EXAMINATION VITAL SIGNS: Temperature 99.2 degrees Fahrenheit, heart rate 99 beats per minute, respiratory rate 18, blood pressure is 200/97, O2 sats are 92% on room air. GENERAL PHYSICAL APPEARANCE: Mr. Sehehan is a middle-aged male, he appears to be tall, he appears to be in no acute distress and has a pleasant disposition. HEENT: Head is atraumatic, normocephalic. Conjunctivae are pale. Sclerae are anicteric. The right pupil reacts but the left pupil is not reactive. Oral exam - no pharyngeal erythema, pale mucous membranes. NECK EXAMINATION: No palpable cervical or supraclavicular lymphadenopathy. CARDIOVASCULAR: Tachycardiac. S1 and S2. No obvious murmurs, rubs or gallops. RESPIRATORY EXAMINATION: Good air movement bilaterally without any added breath sounds. GASTROINTESTINAL: Thin belly, soft, nontender, nondistended. No palpable organ enlargement. Positive bowel sounds. He has a suprapubic catheter in place. SCROTAL EXAMINATION: Scrotum is generally distended and tender. No obvious masses are noted. LOWER EXTREMITIES: No pretibial edema or calf tenderness. METAL HARDENER: No focal sensory or motor deficits. LABORATORY FINDINGS Blood work dated 05/16/2017: WBC count 9.8, hemoglobin 8.7 g/dL, hematocrit 26.8%, platelet count 98,000, absolute neutrophil count is 8.3. Chemistries: Sodium is 144, potassium 3.3, chloride 111, bicarbonate 23.8, BUN 9, creatinine 1.53, EGFR is 57, calcium 8.5, total bilirubin 0.6, AST 22, ALT 7, alkaline phosphatase 164, albumin is 1.7. Serum iron studies dated 05/16/2017: Iron level 15, TIBC is low at 136, percent iron saturation is 11%. Coags: PTT of 48, INR of 1.3, PT is 14. Microbiology: Fluid drainage: From the scrotal abscess: Indicates E. Coli, ESBL positive. Sensitive to Zosyn, imipenem, gentamicin and ertrapenem. Heparin/platelet antibody is negative (HIT antibody). IMAGING STUDIES Renal ultrasound dated 05/16/2017: Indicates: 1) Echogenic renal cortex suggesting underlying medical renal disease. 2) No findings to indicate renal obstruction. Ultrasound of the scrotum dated 05/11/2017: 1) Increased blood flow within the left testicle and epididymis suggestive of epididymo-orchitis. A small left hydrocele is present. 2) Bilateral testicular microlithiasis. ASSESSMENT Mr. Sheehan is a 56-year-old man with a history of diabetes, urinary outflow obstruction secondary to BPH, requiring a chronic indwelling Terrazas catheter. He has had gross hematuria for many months now and presents to the hospital with sudden onset and severe scrotal pain. He was found to have an abscess involving the seminal vesicle and this was drained via transrectal ultrasound-guided aspiration. He also underwent suprapubic catheter placement. The hematology service has been asked to see him for anemia and persistent thrombocytopenia. RECOMMENDATIONS 1. Anemia: Likely secondary to the many months of gross hematuria he has had. His serum iron studies are consistent with iron deficiency though they also indicate possible underlying anemia of chronic inflammation. He certainly has sepsis at this time secondary to a seminal vesicle abscess which is also likely a contributing factor. I would recommend starting the patient on oral iron replacement therapy. 2. Thrombocytopenia: I suspect the thrombocytopenia is likely secondary to a consumptive coagulopathy due to the gross hematuria as well as the recent infection. I have requested repeat coags as well as fibrinogen levels. The hematology service will follow along with you. MD AUGUST Scales/BHAVNA /7:21 PM /7:53 PM
[2017-05-17] VITALS (7 sets, daily range): BP systolic 153–177; BP diastolic 72–94; PULSE 90–100; RESP 18; TEMP 98.3–99.2; O2SAT 95–97
[2017-05-17] MEDS: oxyCODONE/ACETAMINOPHEN 10 MG/325 MG TAB PO PRN ×4 (03:51→21:30)
[2017-05-17] MEDS: INSULIN ASPART SUPPLEMENTAL SCALE SQ SCH ×4 (05:40→21:00)
[2017-05-17] MEDS: SODIUM CHLORIDE 0.9% FLUSH 10 ML FLUSH IV FLUSH SCH ×2 (09:10→21:32)
[2017-05-17] MEDS: PHYTONADIONE 10 MG/ML VIAL SQ SCH (09:10)
[2017-05-17] MEDS: FERROUS SULFATE 325 MG (65 MG ELEMENTAL IRON) TAB PO SCH ×2 (09:10→21:30)
[2017-05-17] MEDS: DOCUSATE SODIUM 50 MG/SENNA 8.6 MG TAB PO SCH ×2 (09:10→21:27)
[2017-05-17] MEDS: INSULIN DETEMIR 100 UNITS/ML VIAL SQ SCH ×2 (09:11→21:00)
--- NOTE | 2017-05-17 09:25 | HHI.FPPN ---
Subjective Remarks No acute events overnight. Afebrile, vital signs stable. Patient reports subjective fever/chills however no fever noted. He continues to complain of pain in his scrotum especially when moving. Objective Vitals Vital Signs Date Time Temp Pulse Resp B/P Pulse Ox O2 Delivery O2 Flow Rate FiO2 05/17/17 08:11 Room Air 05/17/17 08:08 95 05/17/17 08:00 98.9 93 18 177/94 95 05/17/17 04:00 98.3 91 18 153/72 96 05/17/17 04:00 Room Air 05/17/17 00:00 98.9 100 18 167/88 96 05/17/17 00:00 Room Air 05/16/17 20:00 99.5 109 20 170/78 95 05/16/17 20:00 109 05/16/17 20:00 Room Air 05/16/17 16:00 Room Air 05/16/17 16:00 99.2 99 18 201/97 92 05/16/17 12:00 98.9 100 20 178/76 94 05/16/17 12:00 Room Air I/O 05/16/17 05/16/17 05/16/17 05/17/17 05/17/17 05/17/17 07:00 15:00 23:00 07:00 15:00 23:00 Intake Total 824 ml 240 ml 100 ml Output Total 600 ml 775 ml 1525 ml 900 ml Balance -600 ml 49 ml -1285 ml -800 ml Intake Oral 720 ml 240 ml 100 ml IV Total 104 ml Output Urine Total 600 ml 775 ml 1525 ml 900 ml # Bowel Movements 0 0 0 Result Diagram: 05/16/1765705/16/1758 Objective Remarks GENERAL: wdwn male, resting in bed, family at bedside. SKIN: Warm and dry. HEAD: Normocephalic. AT EYES: No scleral icterus. No injection or drainage. ENT: OP clear. MM moist NECK: Supple, trachea midline. No JVD or lymphadenopathy. CARDIOVASCULAR: Regular rate and rhythm without murmurs, gallops, or rubs. RESPIRATORY: Breath sounds equal bilaterally. No accessory muscle use. GASTROINTESTINAL: Abdomen soft, non-tender, nondistended. : Suprapubic catheter in place, insertion area without drainage or erythema. Right scrotum swollen however much improved status post procedure. No scrotal erythema or induration. MUSCULOSKELETAL: No cyanosis, or edema. No calf tenderness BACK: Nontender without obvious deformity. No CVA tenderness. NEURO: Awake and alert. Normal speech. A/P Assessment and Plan 56-year-old male admitted for sepsis secondary to urinary tract infection and scrotal abscess, status post suprapubic catheter insertion and transrectal draining of seminal vesicle abscess on 05/14. Plan as below. Discharge Planning Pending clinical improvement Problem List: (1) Sepsis Status: Acute Plan: With lactic acid of 3.1 on admission, currently resolved. No fevers since drainage of seminal vesicle abscess. Culture of fluid positive for ESBL Escherichia coli. Sensitive to Zosyn. Urology consulted, patient status post suprapubic catheter placement and drainage of the seminal vesicle abscess on 05/14 Infectious disease consulted, appreciate antibiotic recommendations. DC Zosyn and Levaquin. Started on Ertapenem, PICC placement today. (2) Abscess, seminal vesicle Status: Acute Plan: Plan as above (3) UTI (urinary tract infection) Status: Acute Plan: Patient with history of urinary retention, admitted with indwelling Terrazas catheter. UA showed: 300 glucose, trace ketones, high nitrates, high leukocyte esterase, 61 white blood cells, moderate high bacteria. Urine culture pending. Antibiotics as above. Suprapubic catheter placed 05/14 (4) Thrombocytopenia Status: Acute Plan: Platelets 211 on admission, 98 yesterday. Hit panel negative Hematology consulted, likely consumptive (5) Anemia Status: Acute Plan: Patient with stable H&H. Iron studies c/w Fe deficiency anemia. Seen by Hematology, started on Fe BID. (6) CKD (chronic kidney disease) Status: Chronic Plan: Patient with elevated Cr. Likely chronic 2/2 diabetic nephropathy. Renal US wnl. Continue to monitor. (7) Atrial fibrillation Status: Acute Plan: Patient with recent diagnosis of atrial fibrillation, EKG in the emergency department showed sinus tachycardia with nonspecific ST changes. Recently given Coumadin 5 mg for his atrial fibrillation, followed by Dr. Briceño. Plan to restart anticoagulation once patient is stable. (8) DM (diabetes mellitus) Status: Acute Plan: Increased Levemir to 10 units twice a day with good response. Patient blood sugars now controlled. Continue sliding scale insulin. (9) Hypertension Status: Acute Plan: Patient hypertensive with BPs of 170s-200s systolic. Started Amlodipine 10 mg daily. Hydralizine PRN. Continue to monitor and adjust meds as needed. (10) Nutrition, metabolism, and development symptoms Status: Acute Plan: Nutrition: Diabetic diet Electrolytes: Replete when necessary DVT ppx: Mechanical SCDs, Heparin 5,000 units sq q 8 hours will restart 24 hours after procedure. GI ppx: not indicated at this time. Candice Sanders MD R3 May 17, 2017 09:25
[2017-05-17 11:44] LABS: AUTOMATED NEUTROPHIL # 9.8 TH/MM3 (1.8-7.7); BASOPHIL % 0.2 % (0.0-2.0); EOSINOPHIL # 0.1 TH/MM3 (0-0.4); EOSINOPHIL % 0.5 % (0.0-4.0); HEMATOCRIT 28.9 % (39.0-51.0); LYMPH % 3.2 % (9.0-44.0); LYMPHOCYTE # 0.4 TH/MM3 (1.0-4.8); MEAN CELL VOLUME 89.5 FL (80.0-100.0); MEAN CORPUSCULAR HEMOGLOBIN 29.3 PG (27.0-34.0); MEAN CORPUSCULAR HGB CONC 32.7 % (32.0-36.0); MONO % 7.7 % (0.0-8.0); NEUT % 88.4 % (16.0-70.0); PLATELET COUNT 132 TH/MM3 (150-450); RED BLOOD COUNT 3.23 MIL/MM3 (4.50-5.90); RED CELL DISTRIBUTION WIDTH 18.2 % (11.6-17.2); WHITE BLOOD COUNT 11.1 TH/MM3 (4.0-11.0)
[2017-05-17 11:45] LABS: HEMO FLAGS AUTO DIFF
[2017-05-17 12:03] LABS: APTT (PATIENT) 39.3 SEC (24.3-30.1); INTERNATIONAL NORMALIZED RATIO 1.1 RATIO; PROTHROMBIN TIME - PATIENT 12.6 SEC (9.8-11.6)
--- NOTE | 2017-05-17 12:11 | HHI.PR ---
Subjective Patient symptoms today Pt seen and examined. Feeling better but still with scrotal pain Objective Vital Signs Vital Signs Date Time Temp Pulse Resp B/P Pulse Ox O2 Delivery O2 Flow Rate FiO2 05/17/17 12:00 98.4 90 18 171/90 96 05/17/17 08:11 Room Air 05/17/17 08:08 95 05/17/17 08:00 98.9 93 18 177/94 95 05/17/17 04:00 98.3 91 18 153/72 96 05/17/17 04:00 Room Air 05/17/17 00:00 98.9 100 18 167/88 96 05/17/17 00:00 Room Air 05/16/17 20:00 99.5 109 20 170/78 95 05/16/17 20:00 109 05/16/17 20:00 Room Air 05/16/17 16:00 Room Air 05/16/17 16:00 99.2 99 18 201/97 92 Intake & Output 05/17/17 05/17/17 07:00 19:00 Intake Total 340 ml Output Total 2425 ml Balance -2085 ml Intake Oral 340 ml Output Urine Total 2425 ml # Bowel Movements 0 Result Diagram: 05/17/17 1123 05/16/17 0658 Objective Remarks Abd:soft,nt,nd Terrazas with clear urine Left testicle with less swelling today 05/15 Abd:soft,nt,nd SP tube with clear urine Left testicle with less swelling today 05/17 Abd:soft,nt,nd SP tube with clear urine Left testicle still swollen and tender Medications and IVs Current Medications Medications (Trade) Dose Ordered Sig/Preet Route Start Time Stop Time Status Last Admin (NS Flush) 2 ml UNSCH PRN IV FLUSH 05/11/17 12:45 05/16/17 05:31 (NS Flush) 2 ml BID IV FLUSH 05/11/17 12:45 05/17/17 09:10 (Zofran Inj) 4 mg Q6H PRN IVP 05/11/17 13:45 (Narcan Inj) 0.4 mg UNSCH PRN IV 05/11/17 13:45 (Percocet 10-325 Mg) 1 tab Q4H PRN PO 05/11/17 13:45 05/17/17 09:11 (Percocet 10-325 Mg) 2 tab Q4H PRN PO 05/11/17 13:45 05/17/17 03:51 (D50w (Vial) Inj) 50 ml UNSCH PRN IV 05/11/17 13:45 (Glucagon Inj) 1 mg UNSCH PRN OTHER 05/11/17 13:45 (Tylenol) 650 mg Q4H PRN PO 05/11/17 17:30 05/14/17 00:18 (Vitamin K Inj) 10 mg DAILY SQ 05/12/17 14:45 05/17/17 09:10 (Tina-Colace) 2 tab BID PO 05/14/17 14:45 05/17/17 09:10 (Benadryl) 50 mg Q6H PRN PO 05/14/17 20:45 05/16/17 07:45 (Levemir Inj) 10 units Q12HR SQ 05/15/17 09:00 05/17/17 09:11 (Milk Of Magnesia Liq) 30 ml DAILY PRN PO 05/15/17 09:00 05/16/17 08:39 Morphine Sulfate 2 mg 2 mg Q3H PRN IV PUSH 05/16/17 11:30 (INVanz INJ/NS Inj) 100 ml @ 200 mls/hr Q24H IV 05/16/17 14:00 05/16/17 14:51 (Apresoline Inj) 10 mg Q4H PRN IV PUSH 05/16/17 15:15 05/16/17 15:39 (Ferrous Sulfate) 325 mg BID PO 05/16/17 21:00 05/17/17 09:10 (Norvasc) 10 mg DAILY PO 05/17/17 10:00 05/17/17 11:07 Assessment and Plan Assessment and Plan 56 y.o non-compliant male with left epididymalorchitis and prostatic/seminal vesicle abcess Continue Vit K to correct PT/INR For unroofing of abcess in AM tomorrow and SP tube insertion Continue IV ABX NPO after MN 05/15 56 y.o non-compliant male with left epididymalorchitis and prostatic/seminal vesicle abcess s/p SP tube insertion with aspiration of seminal vesicle abcess Continue IV ABX Maintain SP tube Needs w/u for anemia and ARF Pt will need SPP in 3-4 months after he is medically optimized and infection has resulted. 05/17 56 y.o non-compliant male with left epididymalorchitis and prostatic/seminal vesicle abcess s/p SP tube insertion with aspiration of seminal vesicle abcess PICC line today Will need IV abx for another 6 weeks per ID recommendations Continue SP tube drainage SPP in 4-6 months Sunil Oh DO May 17, 2017 12:10
[2017-05-17 12:21] LABS: PLATELET ESTIMATE SMEAR LOW (NORMAL); PLATELET MORPHOLOGY ENLARGED (NORMAL); SCAN/DIFF AUTO DIFF CONFIRMED
[2017-05-17 12:30] LABS: BICARBONATE 26.9 MEQ/L (21.0-32.0); POTASSIUM 3.8 MEQ/L (3.5-5.1)
[2017-05-17] MEDS: MAGNESIUM HYDROXIDE SUSP 30 ML CUP PO PRN (13:21)
--- NOTE | 2017-05-17 13:21 | HHI.FF ---
Infusion Therapy Location of Infusion Therapy: Home [facility] Care IV Infusion Order Patient Information Patient Weight 89.83 kg Diagnosis: Diagnosis Prosttitis, prostatic abscss, epydemoorchitis Coded Allergies: *MDRO Multi-Drug Resistant Organism (Verified Adverse Reaction, Unknown, ) ESBL E.Coli (seminal fluid)-05/14/17 Administer Medication Ertapenem 1 gram IV q 24 hours Start Treatment: May 17, 2017 Stop Treatment: Jun 27, 2017 Additional Information Venous access: PICC Line Additional Instructions [x] Peripheral flush and dressing changes per protocol [x] Implanted port and central corporate v[employer] advertising & online: * Implanted port: 10 ml Normal Saline followed by 5 ml Heparin 100 units/ml Heparin flush after each use and monthly to maintain. [] May leave port accessed during therapy. [] May leave peripheral site accessed for duration of therapy. [x] If patient has SOB or respiratory distress, check oxygen saturation. If less than 90% or clinical signs of respiratory distress, administer oxygen at 2 L/min. via nasal cannula and notify physician. [x] Anaphylaxis/Reaction orders: * Stop infusion. * Keep IV line open with saline flush. * Notify physician. * Monitor vital signs every 15 minutes until symptoms resolve. * Check Oxygen saturation; Oxygen at 2 L/min. via nasal cannula if less than 90% or clinical signs of respiratory distress. * Administer diphenhydramine (Benadryl) 25 mg IV STAT, (unless patient has received as pre-med). May repeat once, if necessary. * Solu-Cortef 250 mg IVP over 30-60 seconds, use 100 mg vials for each dissolution. * Epinephrine (1mg/1 ml) 0.3 mg subcutaneously or IVP now with any signs of respiratory distress. * Check with physician for new additional pre-med orders if patient is re- challenged or re-treated. [x] May remove PICC line when treatment complete, after confirming with Physician. [x] If the patient is admitted to the hospital, the ED, or transferred via [facility] , complete transfer form including medication reconciliation order sheet. Laboratory Tests Weekly Labs: CBC w/diff, Creatinine, LFT's (Hepatic function test) Martha Britt MD May 17, 2017 13:20
[2017-05-17] MEDS ORDERED: LACTULOSE SYRUP 20 GM/30 ML CUP PO PRN (14:00)
[2017-05-17] MEDS: ERTAPENEM INJ 1,000 MG in SODIUM CHLORIDE 0.9% INJ 100 ML IV SCH (15:12)
[2017-05-17] MEDS: SODIUM CHLORIDE 0.9% FLUSH 10 ML FLUSH IV FLUSH PRN (15:12)
--- NOTE | 2017-05-17 15:32 | RADRPT ---
EXAM DATE/TIME: 05/17/2017 14:54 [place] COMPARISON: No previous studies available for comparison. INDICATIONS : Post picc placement. MEDICAL HISTORY : diabetic SURGICAL HISTORY : None. ENCOUNTER: Initial ACUITY: 1 week PAIN SCORE: 0/10 LOCATION: Bilateral chest FINDINGS: PICC line is in good position. Minimal solid changes are present in the left base.. The heart and pu lmonary vascularity are normal. The portion of the bony skeleton visualized is unremarkable. CONCLUSION: PICC line in good position. Fish Rodriguez MD FACR on May 17, 2017 at 15:29 Board Certified Radiologist. This report was verified electronically.
--- NOTE | 2017-05-17 19:42 | HHI.IDPN ---
Subjective Subjective Remarks no fever co tender testicle abd pain better co constipation last BM 3 days ago Antibiotics Ertapenem Allergies: Coded Allergies: *MDRO Multi-Drug Resistant Organism (Verified Adverse Reaction, Unknown, ) ESBL E.Coli (seminal fluid)-05/14/17 Objective . Vital Signs Date Time Temp Pulse Resp B/P Pulse Ox O2 Delivery O2 Flow Rate FiO2 05/17/17 16:00 Room Air 05/17/17 16:00 99.2 100 18 173/93 95 05/17/17 12:00 Room Air 05/17/17 12:00 98.4 90 18 171/90 96 05/17/17 08:11 Room Air 05/17/17 08:08 95 05/17/17 08:00 98.9 93 18 177/94 95 05/17/17 04:00 98.3 91 18 153/72 96 05/17/17 04:00 Room Air 05/17/17 00:00 98.9 100 18 167/88 96 05/17/17 00:00 Room Air 05/16/17 20:00 99.5 109 20 170/78 95 05/16/17 20:00 109 05/16/17 20:00 Room Air 05/16/17 05/16/17 05/17/17 15:00 23:00 07:00 Intake Total 824 ml 240 ml 100 ml Output Total 775 ml 1525 ml 900 ml Balance 49 ml -1285 ml -800 ml Intake Oral 720 ml 240 ml 100 ml IV Total 104 ml Output Urine Total 775 ml 1525 ml 900 ml # Bowel Movements 0 0 0 . Laboratory Tests Test 05/16/17 05/17/17 06:58 11:23 White Blood Count 9.8 TH/MM3 11.1 TH/MM3 Red Blood Count 2.97 MIL/MM3 3.23 MIL/MM3 Hemoglobin 8.7 GM/DL 9.5 GM/DL Hematocrit 26.8 % 28.9 % Mean Corpuscular Volume 90.3 FL 89.5 FL Mean Corpuscular Hemoglobin 29.3 PG 29.3 PG Mean Corpuscular Hemoglobin 32.5 % 32.7 % Concent Red Cell Distribution Width 17.4 % 18.2 % Platelet Count 98 TH/MM3 132 TH/MM3 Mean Platelet Volume 8.9 FL 8.2 FL Neutrophils (%) (Auto) 84.9 % 88.4 % Lymphocytes (%) (Auto) 5.0 % 3.2 % Monocytes (%) (Auto) 8.4 % 7.7 % Eosinophils (%) (Auto) 1.4 % 0.5 % Basophils (%) (Auto) 0.3 % 0.2 % Neutrophils # (Auto) 8.3 TH/MM3 9.8 TH/MM3 Lymphocytes # (Auto) 0.5 TH/MM3 0.4 TH/MM3 Monocytes # (Auto) 0.8 TH/MM3 0.9 TH/MM3 Eosinophils # (Auto) 0.1 TH/MM3 0.1 TH/MM3 Basophils # (Auto) 0.0 TH/MM3 0.0 TH/MM3 CBC Comment AUTO DIFF AUTO DIFF Differential Comment AUTO DIFF AUTO DIFF CONFIRMED CONFIRMED Platelet Estimate LOW Blood Smear Pathologist Review Platelet Morphology Comment ENLARGED Laboratory Tests Test 05/16/17 05/16/17 05/17/17 06:55 06:58 11:23 Iron Level 15 MCG/DL Total Iron Binding Capacity 136 MCG/DL Percent Iron Saturation 11.0 % Sodium Level 144 MEQ/L 142 MEQ/L Potassium Level 3.3 MEQ/L 3.8 MEQ/L Chloride Level 111 MEQ/L 107 MEQ/L Carbon Dioxide Level 23.8 MEQ/L 26.9 MEQ/L Anion Gap 9 MEQ/L 8 MEQ/L Blood Urea Nitrogen 11 MG/DL 11 MG/DL Creatinine 1.53 MG/DL 1.29 MG/DL Estimat Glomerular Filtration 57 ML/MIN 69 ML/MIN Rate Random Glucose 79 MG/DL 151 MG/DL Calcium Level 8.5 MG/DL 9.4 MG/DL Total Bilirubin 0.6 MG/DL Aspartate Amino Transf 22 U/L (AST/SGOT) Alanine Aminotransferase 7 U/L (ALT/SGPT) Alkaline Phosphatase 164 U/L Total Protein 6.1 GM/DL Albumin 1.7 GM/DL Vitamin B12 Level 1577 PG/ML Folate 10.0 NG/ML Imaging Last Impressions Chest X-Ray 05/17/17 0000 Signed Impressions: Service Date/Time: Wednesday, May 17, 2017 14:54 - CONCLUSION: PICC line in good position. Fish Rodriguez MD FACR Renal Ultrasound 05/16/17 0000 Signed Impressions: Service Date/Time: April 13:57 - CONCLUSION: 1. Echogenic renal cortex suggesting underlying medical renal disease. 2. Incidental 8 mm stone seen on the right. 3. No findings to indicate renal obstruction. 4. Very minimal amount of free fluid adjacent to the liver margin. Beka Rodriguez MD Pelvis CT 05/12/17 0000 Signed Impressions: Service Date/Time: Friday, May 12, 2017 10:48 - CONCLUSION: 1. Marked circumferential thickening of the bladder with Corey catheter balloon displaced anteriorly by a bladder mass or enlarged prostate measuring up to 4.9 cm in diameter. 3.8 cm mass in the region of the left seminal vesicle. Differential diagnosis includes infection and neoplasm. 2. Bilateral hydroceles. Alex De MD Scrotum Ultrasound 05/11/17 0947 Signed Impressions: Service Date/Time: Thursday, May 11, 2017 10:14 - CONCLUSION: 1. Increased blood flow within the left testicle and epididymis suggestive of epididymoorchitis. A small left hydrocele is present. 2. Bilateral testicular microlithiasis. Glenn Hamlin MD Physical Exam CONSTITUTIONAL/GENERAL: This is an adequately nourished patient, in no apparent distress. TUBES/LINES/DRAINS: SKIN: No rashes, or lesions. EYES: No scleral icterus. No injection or drainage. Fundi not examined. CARDIOVASCULAR: Regular rate and rhythm without murmurs, gallops, or rubs. No JVD. Peripheral pulses symmetric. RESPIRATORY/CHEST: Symmetric, unlabored respirations. Clear to auscultation. Breath sounds equal bilaterally. No wheezes, rales, or rhonchi. GASTROINTESTINAL: Abdomen soft, not tender to palpation, mildly distended. No hepato-splenomegaly, or palpable masses. Bowel sounds present. GENITOURINARY: Without palpable bladder distension. SP catheter in place with failry clear yellow urine L testicle unchanged fromyday, remians enlarged firm and tender to palpation MUSCULOSKELETAL: Extremities without clubbing, cyanosis, or edema. No joint tenderness or effusion noted. No calf tenderness. No mottling or clubbing. NEUROLOGICAL: Awake and alert. Non focal PSYCHIATRIC: No obvious anxiety/depression. no apparent hallucinations or other psychotic thought process. Assessment & Plan Remarks UTI in the settings of chronic corey left epididymalorchitis and prostatic/seminal vesicle abcess Prostatic abscess - sp unroofing - - ESBL + E.coli Sepsis 2/2 complicated UTI, clinically resolved Worsening leukocytis ? source - cont Ertapenem x 6 wks total monitor WBC dw pt Martha Britt MD May 17, 2017 19:41
[2017-05-18] VITALS (7 sets, daily range): BP systolic 155–177; BP diastolic 86–94; PULSE 86–93; RESP 18–20; TEMP 98.3–99.1; O2SAT 96–98
[2017-05-18] MEDS: oxyCODONE/ACETAMINOPHEN 10 MG/325 MG TAB PO PRN ×2 (02:48→21:28)
[2017-05-18] MEDS: INSULIN ASPART SUPPLEMENTAL SCALE SQ SCH ×4 (06:22→21:00)
[2017-05-18 07:33] LABS: BICARBONATE 28.2 MEQ/L (21.0-32.0); POTASSIUM 3.7 MEQ/L (3.5-5.1)
[2017-05-18 07:37] LABS: AUTOMATED NEUTROPHIL # 8.5 TH/MM3 (1.8-7.7); BASOPHIL # 0.1 TH/MM3 (0-0.2); BASOPHIL % 0.6 % (0.0-2.0); EOSINOPHIL # 0.1 TH/MM3 (0-0.4); EOSINOPHIL % 1.1 % (0.0-4.0); HEMATOCRIT 24.4 % (39.0-51.0); HEMO FLAGS DIFF FINAL; LYMPH % 5.4 % (9.0-44.0); LYMPHOCYTE # 0.6 TH/MM3 (1.0-4.8); MEAN CELL VOLUME 88.9 FL (80.0-100.0); MEAN CORPUSCULAR HEMOGLOBIN 29.5 PG (27.0-34.0); MEAN CORPUSCULAR HGB CONC 33.1 % (32.0-36.0); MONO % 11.4 % (0.0-8.0); NEUT % 81.5 % (16.0-70.0); PLATELET COUNT 155 TH/MM3 (150-450); RED BLOOD COUNT 2.74 MIL/MM3 (4.50-5.90); RED CELL DISTRIBUTION WIDTH 17.7 % (11.6-17.2); WHITE BLOOD COUNT 10.4 TH/MM3 (4.0-11.0)
[2017-05-18] MEDS: INSULIN DETEMIR 100 UNITS/ML VIAL SQ SCH ×2 (09:00→21:00)
[2017-05-18] MEDS ORDERED: LACTULOSE SYRUP 20 GM/30 ML CUP PO SCH (09:00)
[2017-05-18] MEDS: FERROUS SULFATE 325 MG (65 MG ELEMENTAL IRON) TAB PO SCH ×2 (09:19→21:27)
[2017-05-18] MEDS: PHYTONADIONE 10 MG/ML VIAL SQ SCH (09:19)
[2017-05-18] MEDS: DOCUSATE SODIUM 50 MG/SENNA 8.6 MG TAB PO SCH ×2 (09:19→21:27)
--- NOTE | 2017-05-18 09:22 | HHI.FPPN ---
Subjective Remarks Patient with subjective fevers last night. Still with pain in swelling in left side of scrotum and did not have a BM in past 3 days. TMax 99.1 in past 24 hrs. Leukocytosis resolved from yesterday. Objective Vitals Vital Signs Date Time Temp Pulse Resp B/P Pulse Ox O2 Delivery O2 Flow Rate FiO2 05/18/17 08:01 98.6 87 18 177/94 96 05/18/17 04:00 98.7 90 20 164/89 97 05/18/17 00:00 99.1 86 18 164/94 96 05/18/17 00:00 Room Air 05/17/17 20:00 Room Air 05/17/17 20:00 98 05/17/17 20:00 99.1 96 18 155/90 97 05/17/17 16:00 Room Air 05/17/17 16:00 99.2 100 18 173/93 95 05/17/17 12:00 Room Air 05/17/17 12:00 98.4 90 18 171/90 96 I/O 05/17/17 05/17/17 05/17/17 05/18/17 05/18/17 05/18/17 07:00 15:00 23:00 07:00 15:00 23:00 Intake Total 100 ml 584 ml 240 ml 0 ml Output Total 900 ml 300 ml 0 ml 1025 ml Balance -800 ml 284 ml 240 ml -1025 ml Intake Oral 100 ml 480 ml 240 ml 0 ml IV Total 104 ml Output Urine Total 900 ml 300 ml 0 ml 1025 ml # Bowel Movements 0 0 0 Result Diagram: 05/18/1762905/18/17629 Objective Remarks GENERAL: wdwn male, resting in bed, family at bedside. SKIN: Warm and dry. HEAD: Normocephalic. AT EYES: No scleral icterus. No injection or drainage. ENT: OP clear. MM moist NECK: Supple, trachea midline. No JVD or lymphadenopathy. CARDIOVASCULAR: Regular rate and rhythm without murmurs, gallops, or rubs. RESPIRATORY: Breath sounds equal bilaterally. No accessory muscle use. GASTROINTESTINAL: Abdomen soft, non-tender, nondistended. : Suprapubic catheter in place, insertion area without drainage or erythema. Right scrotum swollen however much improved status post procedure. No scrotal erythema or induration. MUSCULOSKELETAL: No cyanosis, or edema. No calf tenderness BACK: Nontender without obvious deformity. No CVA tenderness. NEURO: Awake and alert. Normal speech. A/P Assessment and Plan 56-year-old male admitted for sepsis secondary to urinary tract infection and scrotal abscess, status post suprapubic catheter insertion and transrectal draining of seminal vesicle abscess on 05/14. Plan as below. Discharge Planning Pending clinical improvement Problem List: (1) Sepsis Status: Acute Plan: With lactic acid of 3.1 on admission, currently resolved. No fevers since drainage of seminal vesicle abscess. Culture of fluid positive for ESBL Escherichia coli. Sensitive to Zosyn. Urology consulted, patient status post suprapubic catheter placement and drainage of the seminal vesicle abscess on 05/14 Infectious disease consulted, appreciate antibiotic recommendations. DC Zosyn and Levaquin. Started on Ertapenem, PICC placement on 05/17. (2) Abscess, seminal vesicle Status: Acute Plan: Plan as above (3) UTI (urinary tract infection) Status: Acute Plan: Patient with history of urinary retention, admitted with indwelling Terrazas catheter. UA showed: 300 glucose, trace ketones, high nitrates, high leukocyte esterase, 61 white blood cells, moderate high bacteria. Urine culture pending. Antibiotics as above. Suprapubic catheter placed 05/14 (4) Thrombocytopenia Status: Acute Plan: Platelets 211 on admission, decreased to 98 on 05/16. Improving since (on 05/18 plt count of 155) Hit panel negative Hematology consulted, likely consumptive (5) Anemia Status: Acute Plan: Patient with stable H&H. Iron studies c/w Fe deficiency anemia. Seen by Hematology, started on Fe BID. Recheck CBC in AM. (6) CKD (chronic kidney disease) Status: Chronic Plan: Patient with elevated Cr. Likely chronic 2/2 diabetic nephropathy. Renal US wnl. Continue to monitor. (7) Atrial fibrillation Status: Acute Plan: Patient with recent diagnosis of atrial fibrillation, EKG in the emergency department showed sinus tachycardia with nonspecific ST changes. Recently given Coumadin 5 mg for his atrial fibrillation, followed by Dr. Briceño. Plan to restart anticoagulation once patient is stable. (8) DM (diabetes mellitus) Status: Acute Plan: Increased Levemir to 10 units twice a day with good response. Patient blood sugars now controlled. Continue sliding scale insulin. (9) Hypertension Status: Acute Plan: Patient hypertensive with BPs of 170s-200s systolic. Started Amlodipine 10 mg daily. Hydralizine PRN. Continue to monitor and adjust meds as needed. (10) Constipation Status: Acute Plan: No BM in 3 days. Will schedule lactulose 30 ml qd. (11) Nutrition, metabolism, and development symptoms Status: Acute Plan: Nutrition: Diabetic diet Electrolytes: Replete when necessary DVT ppx: Mechanical SCDs, Heparin 5,000 units sq q 8 hours will restart 24 hours after procedure. GI ppx: not indicated at this time. Kenneth Black MD R2 May 18, 2017 09:22
[2017-05-18] MEDS: SODIUM CHLORIDE 0.9% FLUSH 10 ML FLUSH IV FLUSH SCH ×2 (09:26→21:28)
--- NOTE | 2017-05-18 09:54 | PD.ONC.PN ---
Subjective Subjective Remarks Afebrile overnight. Denies bleeding. No BM in several days. Wants to try a laxative. Objective Data Date Time Temp Pulse Resp B/P Pulse Ox O2 Delivery O2 Flow Rate FiO2 05/18/17 08:01 98.6 87 18 177/94 96 05/18/17 04:00 98.7 90 20 164/89 97 05/18/17 00:00 99.1 86 18 164/94 96 05/18/17 00:00 Room Air 05/17/17 20:00 Room Air 05/17/17 20:00 98 05/17/17 20:00 99.1 96 18 155/90 97 05/17/17 16:00 Room Air 05/17/17 16:00 99.2 100 18 173/93 95 05/17/17 12:00 Room Air 05/17/17 12:00 98.4 90 18 171/90 96 05/18/17 05/18/17 05/18/17 07:00 15:00 23:00 Intake Total 0 ml Output Total 1025 ml Balance -1025 ml Result Diagram: 05/18/17 0630 05/18/17 0630 Laboratory Results Laboratory Tests Test 05/17/17 05/18/17 11:23 06:30 White Blood Count 11.1 TH/MM3 10.4 TH/MM3 Red Blood Count 3.23 MIL/MM3 2.74 MIL/MM3 Hemoglobin 9.5 GM/DL 8.1 GM/DL Hematocrit 28.9 % 24.4 % Mean Corpuscular Volume 89.5 FL 88.9 FL Mean Corpuscular Hemoglobin 29.3 PG 29.5 PG Mean Corpuscular Hemoglobin 32.7 % 33.1 % Concent Red Cell Distribution Width 18.2 % 17.7 % Platelet Count 132 TH/MM3 155 TH/MM3 Mean Platelet Volume 8.2 FL 8.7 FL Neutrophils (%) (Auto) 88.4 % 81.5 % Lymphocytes (%) (Auto) 3.2 % 5.4 % Monocytes (%) (Auto) 7.7 % 11.4 % Eosinophils (%) (Auto) 0.5 % 1.1 % Basophils (%) (Auto) 0.2 % 0.6 % Neutrophils # (Auto) 9.8 TH/MM3 8.5 TH/MM3 Lymphocytes # (Auto) 0.4 TH/MM3 0.6 TH/MM3 Monocytes # (Auto) 0.9 TH/MM3 1.2 TH/MM3 Eosinophils # (Auto) 0.1 TH/MM3 0.1 TH/MM3 Basophils # (Auto) 0.0 TH/MM3 0.1 TH/MM3 CBC Comment AUTO DIFF DIFF FINAL Differential Comment AUTO DIFF CONFIRMED Platelet Estimate LOW Platelet Morphology Comment ENLARGED Prothrombin Time 12.6 SEC Prothromb Time International 1.1 RATIO Ratio Activated Partial 39.3 SEC Thromboplast Time Fibrinogen 747 mg/dL Sodium Level 142 MEQ/L 144 MEQ/L Potassium Level 3.8 MEQ/L 3.7 MEQ/L Chloride Level 107 MEQ/L 108 MEQ/L Carbon Dioxide Level 26.9 MEQ/L 28.2 MEQ/L Anion Gap 8 MEQ/L 8 MEQ/L Blood Urea Nitrogen 11 MG/DL 12 MG/DL Creatinine 1.29 MG/DL 1.21 MG/DL Estimat Glomerular Filtration 69 ML/MIN 75 ML/MIN Rate Random Glucose 151 MG/DL 103 MG/DL Calcium Level 9.4 MG/DL 8.5 MG/DL Vitamin B12 Level 1577 PG/ML Folate 10.0 NG/ML Administered Medications Medications (Trade) Dose Ordered Sig/Preet Route PRN Reason Start Time Stop Time Status Last Admin Dose Admin Sodium Chloride (NS Flush) 2 ml UNSCH PRN IV FLUSH MEDS 05/11/17 12:45 05/17/17 15:12 Sodium Chloride (NS Flush) 2 ml BID IV FLUSH 05/11/17 12:45 05/18/17 09:26 Oxycodone/ Acetaminophen (Percocet 10-325 Mg) 1 tab Q4H PRN PO PAIN 1-5 05/11/17 13:45 05/18/17 02:48 Oxycodone/ Acetaminophen (Percocet 10-325 Mg) 2 tab Q4H PRN PO PAIN 6-10 05/11/17 13:45 05/17/17 03:51 Acetaminophen (Tylenol) 650 mg Q4H PRN PO TEMPERATURE > 100.5 F 05/11/17 17:30 05/14/17 00:18 Phytonadione (Vitamin K Inj) 10 mg DAILY SQ 05/12/17 14:45 05/18/17 09:19 Senna/Docusate Sodium (Tina-Colace) 2 tab BID PO 05/14/17 14:45 05/18/17 09:19 Diphenhydramine HCl (Benadryl) 50 mg Q6H PRN PO ITCHING 05/14/17 20:45 05/16/17 07:45 Insulin Detemir (Levemir Inj) 10 units Q12HR SQ 05/15/17 09:00 05/18/17 09:00 Magnesium Hydroxide 30 ml 30 ml DAILY PRN PO CONSTIPATION 05/15/17 09:00 05/17/17 13:21 Ertapenem/Sodium Chloride (INVanz INJ/NS Inj) 100 ml @ 200 mls/hr Q24H IV 05/16/17 14:00 05/17/17 15:12 Hydralazine HCl (Apresoline Inj) 10 mg Q4H PRN IV PUSH SBP> 180, DBP> 100 05/16/17 15:15 05/16/17 15:39 Ferrous Sulfate (Ferrous Sulfate) 325 mg BID PO 05/16/17 21:00 05/18/17 09:19 Amlodipine Besylate (Norvasc) 10 mg DAILY PO 05/17/17 10:00 05/18/17 09:19 Lactulose (Lactulose Liq) 30 ml DAILY PRN PO MOD-SEVERE CONSTIPATION 05/17/17 14:00 05/17/17 15:12 Lactulose (Lactulose Liq) 30 ml DAILY PO 05/18/17 09:00 05/18/17 09:18 Objective Remarks GENERAL: Pleasant middle aged male, supine in bed in [facility]. SKIN: Warm and dry. HEAD: Normocephalic. EYES: No injection or drainage. NECK: Supple, trachea midline. CARDIOVASCULAR: Regular rate and rhythm RESPIRATORY: Breath sounds equal bilaterally. No accessory muscle use. GASTROINTESTINAL: Abdomen soft, non-tender, nondistended. supra-pubic catheter in place, draining clear urine. no bleeding. EXTREMITIES: No cyanosis MUSCULOSKELETAL: Adequate muscle tone. NEUROLOGICAL: No obvious focal deficit. Awake, alert, and oriented x3. Assessment/Plan Assessment Mr. Sheehan is a 56-year-old man with a history of diabetes, urinary outflow obstruction secondary to BPH, requiring a chronic indwelling Terrazas catheter. He has had gross hematuria for many months now and presents to the hospital with sudden onset and severe scrotal pain. He was found to have an abscess involving the seminal vesicle and this was drained via transrectal ultrasound-guided aspiration. He also underwent suprapubic catheter placement. The hematology service has been asked to see him for anemia and persistent thrombocytopenia. Plan 1. Anemia: likely secondary to chronic inflammation. some iron deficiency. will continue oral ferrous sulfate 2. thrombocytopenia: now WNL. was likely secondary to consumptive coagulopathy d /t bleeding. coags improved, fibrinogen normal. Vitamin K could be stopped at this point. Attending Statement The exam, history, and the medical decision-making described in the above note were completed with the assistance of the mid-level provider. I reviewed and agree with the findings presented. I attest that I had a [id number] encounter with the patient on the same day, and personally performed and documented my assessment and findings in the medical record. Pt seen and examined. c/o constipation, terribly uncomfortable, usually moves bowels daily, has not gone in 1 week. Iron orally is constipating. Discussed trial of lactulose and suppository. c/o pain low abdomen not certain if related to abscess versus constipation. Thrombocytopenia improved but hgb decrease. Consider reactive thrombocytosis from iron deficiency. Ferritin will be checked, if low and in light of trouble w/ constipation consider parenteral iron to avoid blood transfusion. Urine clear and yellow. Margo Randolph May 18, 2017 09:54 Sofia Rankin MD May 18, 2017 21:44
[2017-05-18] MEDS: ERTAPENEM INJ 1,000 MG in SODIUM CHLORIDE 0.9% INJ 100 ML IV SCH (14:11)
[2017-05-18] MEDS ORDERED: GLYCERIN ADULT 2 GM SUPP RECTAL ONE (21:45)
[2017-05-18] MEDS: LACTULOSE SYRUP 20 GM/30 ML CUP PO SCH (22:13)
[2017-05-19] VITALS (8 sets, daily range): BP systolic 148–193; BP diastolic 70–93; PULSE 87–107; RESP 18; TEMP 97.9–98.7; O2SAT 94–98
[2017-05-19] MEDS: INSULIN ASPART SUPPLEMENTAL SCALE SQ SCH ×4 (06:33→20:32)
[2017-05-19 06:54] LABS: AUTOMATED NEUTROPHIL # 9.3 TH/MM3 (1.8-7.7); BASOPHIL % 0.3 % (0.0-2.0); EOSINOPHIL # 0.1 TH/MM3 (0-0.4); EOSINOPHIL % 0.9 % (0.0-4.0); HEMATOCRIT 25.2 % (39.0-51.0); HEMO FLAGS DIFF FINAL; LYMPH % 7.6 % (9.0-44.0); LYMPHOCYTE # 0.8 TH/MM3 (1.0-4.8); MEAN CELL VOLUME 87.8 FL (80.0-100.0); MEAN CORPUSCULAR HEMOGLOBIN 29.2 PG (27.0-34.0); MEAN CORPUSCULAR HGB CONC 33.2 % (32.0-36.0); MONO % 6.6 % (0.0-8.0); NEUT % 84.6 % (16.0-70.0); PLATELET COUNT 226 TH/MM3 (150-450); RED BLOOD COUNT 2.86 MIL/MM3 (4.50-5.90); RED CELL DISTRIBUTION WIDTH 16.8 % (11.6-17.2)
[2017-05-19 07:00] LABS: BICARBONATE 26.5 MEQ/L (21.0-32.0); POTASSIUM 3.6 MEQ/L (3.5-5.1)
--- NOTE | 2017-05-19 08:52 | HHI.FPPN ---
Subjective Remarks Still with 5/10 pain (scrotal) and worsening when walking and sitting upright. Residents called last night for hypoglycemia of 89 bedside. Held Long acting insulin. Patient not taking in much PO , reports nausea with meals. Has not had BM in 1 week, despite multiple laxatives. Denies any new fevers or chills. Objective Vitals Vital Signs Date Time Temp Pulse Resp B/P Pulse Ox O2 Delivery O2 Flow Rate FiO2 05/19/17 07:05 98.4 91 18 166/78 97 05/19/17 04:00 98.7 91 18 148/73 98 05/19/17 00:00 98.2 89 18 164/83 96 05/19/17 00:00 Room Air 05/18/17 20:00 91 05/18/17 20:00 98.9 91 18 171/86 97 05/18/17 20:00 Room Air 05/18/17 17:22 86 05/18/17 16:01 98.4 86 18 155/87 97 05/18/17 12:01 98.3 93 18 160/92 98 05/18/17 09:00 Room Air I/O 05/18/17 05/18/17 05/18/17 05/19/17 05/19/17 05/19/17 07:00 15:00 23:00 07:00 15:00 23:00 Intake Total 0 ml 720 ml 240 ml 120 ml Output Total 1025 ml 1400 ml 450 ml 300 ml Balance -1025 ml -680 ml -210 ml -180 ml Intake Oral 0 ml 720 ml 240 ml 120 ml Output Urine Total 1025 ml 1400 ml 450 ml 300 ml # Bowel Movements 0 0 0 0 Result Diagram: 05/19/1761405/19/1715 Objective Remarks GENERAL: wdwn male, resting in bed, family at bedside. SKIN: Warm and dry. HEAD: Normocephalic. AT EYES: No scleral icterus. No injection or drainage. ENT: OP clear. MM moist NECK: Supple, trachea midline. No JVD or lymphadenopathy. CARDIOVASCULAR: Regular rate and rhythm without murmurs, gallops, or rubs. RESPIRATORY: Breath sounds equal bilaterally. No accessory muscle use. GASTROINTESTINAL: Abdomen soft, non-tender, nondistended. : Suprapubic catheter in place, insertion area without drainage or erythema. Right scrotum swollen however much improved status post procedure. No scrotal erythema or induration. MUSCULOSKELETAL: No cyanosis, or edema. No calf tenderness BACK: Nontender without obvious deformity. No CVA tenderness. NEURO: Awake and alert. Normal speech. A/P Assessment and Plan 56-year-old male admitted for sepsis secondary to urinary tract infection and scrotal abscess, status post suprapubic catheter insertion and transrectal draining of seminal vesicle abscess on 05/14. Plan as below. Discharge Planning Pending clinical improvement Problem List: (1) Sepsis Status: Resolved Plan: With lactic acid of 3.1 on admission, currently resolved. No fevers since drainage of seminal vesicle abscess. Culture of fluid positive for ESBL Escherichia coli. Sensitive to Zosyn. Urology consulted, patient status post suprapubic catheter placement and drainage of the seminal vesicle abscess on 05/14 Infectious disease consulted, appreciate antibiotic recommendations. DC Zosyn and Levaquin. Started on Ertapenem, PICC placement on 05/17. (2) Abscess, seminal vesicle Status: Acute Plan: Plan as above (3) UTI (urinary tract infection) Status: Acute Plan: Patient with history of urinary retention, admitted with indwelling Terrazas catheter. UA showed: 300 glucose, trace ketones, high nitrates, high leukocyte esterase, 61 white blood cells, moderate high bacteria. Urine culture pending. Antibiotics as above. Suprapubic catheter placed 05/14 (4) Thrombocytopenia Status: Resolved Plan: Platelets 211 on admission, decreased to 98 on 05/16. Improving since (on 05/18 plt count of 155) Hit panel negative Hematology consulted, likely consumptive (5) Anemia Status: Acute Plan: Patient with stable H&H. Iron studies c/w Fe deficiency anemia. Seen by Hematology, started on Fe BID. Recheck CBC in AM. (6) CKD (chronic kidney disease) Status: Chronic Plan: Patient with elevated Cr. Likely chronic 2/2 diabetic nephropathy. Renal US wnl. Continue to monitor. (7) Atrial fibrillation Status: Acute Plan: Patient with recent diagnosis of atrial fibrillation, EKG in the emergency department showed sinus tachycardia with nonspecific ST changes. Recently given Coumadin 5 mg for his atrial fibrillation, followed by Dr. Briceño. Plan to restart anticoagulation once patient is stable. (8) DM (diabetes mellitus) Status: Acute Plan: Increased Levemir to 10 units twice a day with good response. Patient blood sugars now controlled. Continue sliding scale insulin. (9) Hypertension Status: Acute Plan: Patient hypertensive with BPs of 170s-200s systolic. Started Amlodipine 10 mg daily. Hydralizine PRN. Continue to monitor and adjust meds as needed. (10) Constipation Status: Resolved Plan: No BM in 3 days. Will schedule lactulose 30 ml qd. Will also try dulcolax suppository x 1. If this is not working, consider fleets enema. KUB showed air fluid levels consistent with partial SBO. No Free air. (11) Nutrition, metabolism, and development symptoms Status: Acute Plan: Nutrition: Diabetic diet Electrolytes: Replete when necessary DVT ppx: Mechanical SCDs, Heparin 5,000 units sq q 8 hours will restart 24 hours after procedure. GI ppx: not indicated at this time. Kenneth Black MD R2 May 19, 2017 08:51
[2017-05-19] MEDS: PHYTONADIONE 10 MG/ML VIAL SQ SCH (08:54)
[2017-05-19] MEDS: LACTULOSE SYRUP 20 GM/30 ML CUP PO SCH ×4 (08:54→20:38)
[2017-05-19] MEDS: DOCUSATE SODIUM 50 MG/SENNA 8.6 MG TAB PO SCH ×2 (08:54→20:38)
[2017-05-19] MEDS: SODIUM CHLORIDE 0.9% FLUSH 10 ML FLUSH IV FLUSH SCH ×2 (08:59→20:38)
[2017-05-19] MEDS: INSULIN DETEMIR 100 UNITS/ML VIAL SQ SCH ×2 (08:59→20:32)
[2017-05-19] MEDS: oxyCODONE/ACETAMINOPHEN 10 MG/325 MG TAB PO PRN ×3 (09:07→20:38)
[2017-05-19] MEDS ORDERED: BISACODYL 10 MG SUPP RECTAL ONE (10:00)
--- NOTE | 2017-05-19 10:33 | RADRPT ---
EXAM DATE/TIME: 05/19/2017 10:13 [facility] COMPARISON: No previous studies available for comparison. INDICATIONS : Constipation and lower abdominal pain for one week. MEDICAL HISTORY : Diabetes mellitus type II. SURGICAL HISTORY : None. ENCOUNTER: Initial ACUITY: 1 week PAIN SCORE: 6/10 LOCATION: Bilateral upper quadrant abdomen. FINDINGS: Supine and upright views of the abdomen were performed. The abdominal bowel gas pattern is nonspecif ic. There is a moderate amount of diffuse stool predominantly in the right colon. There are some air- filled mildly dilated loops of small bowel. No evidence of free air. A few small air-fluid levels are seen in some bowel loops on the upright study.. The visualized lower lungs are clear. No evidence of free intraperitoneal gas. The osseous structures are unremarkable. CONCLUSION: 1. There is a moderate amount of diffuse stool predominantly from the right colon. 2. The bowel gas pattern is nonspecific with some mild dilated loops of small bowel and some air-flui d levels. 3. No evidence of free air. Lio Fernández MD on May 19, 2017 at 10:29 Board Certified Radiologist. This report was verified electronically.
--- NOTE | 2017-05-19 11:44 | PD.ONC.PN ---
Subjective Subjective Remarks Afebrile overnight. Still no BM. Not hungry bc he feels constipated. No bleeding. Objective Data Date Time Temp Pulse Resp B/P Pulse Ox O2 Delivery O2 Flow Rate FiO2 05/19/17 07:05 98.4 91 18 166/78 97 05/19/17 04:00 98.7 91 18 148/73 98 05/19/17 00:00 98.2 89 18 164/83 96 05/19/17 00:00 Room Air 05/18/17 20:00 91 05/18/17 20:00 98.9 91 18 171/86 97 05/18/17 20:00 Room Air 05/18/17 17:22 86 05/18/17 16:01 98.4 86 18 155/87 97 05/18/17 12:01 98.3 93 18 160/92 98 05/19/17 05/19/17 05/19/17 07:00 15:00 23:00 Intake Total 120 ml Output Total 300 ml Balance -180 ml Result Diagram: 05/19/1715 05/19/17 0615 Laboratory Results Laboratory Tests Test 05/19/17 06:15 White Blood Count 11.0 TH/MM3 Red Blood Count 2.86 MIL/MM3 Hemoglobin 8.4 GM/DL Hematocrit 25.2 % Mean Corpuscular Volume 87.8 FL Mean Corpuscular Hemoglobin 29.2 PG Mean Corpuscular Hemoglobin 33.2 % Concent Red Cell Distribution Width 16.8 % Platelet Count 226 TH/MM3 Mean Platelet Volume 8.2 FL Neutrophils (%) (Auto) 84.6 % Lymphocytes (%) (Auto) 7.6 % Monocytes (%) (Auto) 6.6 % Eosinophils (%) (Auto) 0.9 % Basophils (%) (Auto) 0.3 % Neutrophils # (Auto) 9.3 TH/MM3 Lymphocytes # (Auto) 0.8 TH/MM3 Monocytes # (Auto) 0.7 TH/MM3 Eosinophils # (Auto) 0.1 TH/MM3 Basophils # (Auto) 0.0 TH/MM3 CBC Comment DIFF FINAL Differential Comment Sodium Level 143 MEQ/L Potassium Level 3.6 MEQ/L Chloride Level 108 MEQ/L Carbon Dioxide Level 26.5 MEQ/L Anion Gap 9 MEQ/L Blood Urea Nitrogen 11 MG/DL Creatinine 1.10 MG/DL Estimat Glomerular Filtration 83 ML/MIN Rate Random Glucose 111 MG/DL Calcium Level 8.8 MG/DL Ferritin 245 NG/ML Imaging Studies Last 24 hours Impressions Abdomen X-Ray 05/19/17 0000 Signed Impressions: Service Date/Time: Friday, May 19, 2017 10:13 - CONCLUSION: 1. There is a moderate amount of diffuse stool predominantly from the right colon. 2. The bowel gas pattern is nonspecific with some mild dilated loops of small bowel and some air-fluid levels. 3. No evidence of free air. Lio Fernández MD Administered Medications Medications (Trade) Dose Ordered Sig/Preet Route PRN Reason Start Time Stop Time Status Last Admin Dose Admin Sodium Chloride (NS Flush) 2 ml UNSCH PRN IV FLUSH MEDS 05/11/17 12:45 05/17/17 15:12 Sodium Chloride (NS Flush) 2 ml BID IV FLUSH 05/11/17 12:45 05/19/17 08:59 Oxycodone/ Acetaminophen (Percocet 10-325 Mg) 1 tab Q4H PRN PO PAIN 1-5 05/11/17 13:45 05/19/17 09:07 Oxycodone/ Acetaminophen (Percocet 10-325 Mg) 2 tab Q4H PRN PO PAIN 6-10 05/11/17 13:45 05/17/17 03:51 Acetaminophen (Tylenol) 650 mg Q4H PRN PO TEMPERATURE > 100.5 F 05/11/17 17:30 05/14/17 00:18 Senna/Docusate Sodium (Tina-Colace) 2 tab BID PO 05/14/17 14:45 05/19/17 08:54 Diphenhydramine HCl (Benadryl) 50 mg Q6H PRN PO ITCHING 05/14/17 20:45 05/16/17 07:45 Insulin Detemir 10 units 10 units Q12HR SQ 05/15/17 09:00 05/19/17 08:59 Ertapenem/Sodium Chloride (INVanz INJ/NS Inj) 100 ml @ 200 mls/hr Q24H IV 05/16/17 14:00 05/18/17 14:11 Hydralazine HCl (Apresoline Inj) 10 mg Q4H PRN IV PUSH SBP> 180, DBP> 100 05/16/17 15:15 05/16/17 15:39 Ferrous Sulfate (Ferrous Sulfate) 325 mg BID PO 05/16/17 21:00 Hold 05/18/17 21:27 Amlodipine Besylate (Norvasc) 10 mg DAILY PO 05/17/17 10:00 05/19/17 08:54 Lactulose (Lactulose Liq) 30 ml DAILY PRN PO MOD-SEVERE CONSTIPATION 05/17/17 14:00 05/17/17 15:12 Lactulose (Lactulose Liq) 30 ml DAILY PO 05/18/17 21:45 05/19/17 08:54 Objective Remarks GENERAL: Middle aged male, sitting up in chair in nad. SKIN: Warm and dry. HEAD: Normocephalic. EYES: No injection or drainage. NECK: Supple, trachea midline. CARDIOVASCULAR: Regular rate and rhythm RESPIRATORY: Breath sounds equal bilaterally. No accessory muscle use. GASTROINTESTINAL: Abdomen soft, non-tender, nondistended. supra-pubic catheter in place. no bleeding. EXTREMITIES: No cyanosis MUSCULOSKELETAL: Adequate muscle tone. NEUROLOGICAL: No obvious focal deficit. Awake, alert, and oriented x3. Assessment/Plan Assessment Mr. Sheehan is a 56-year-old man with a history of diabetes, urinary outflow obstruction secondary to BPH, requiring a chronic indwelling Terrazas catheter. He has had gross hematuria for many months now and presents to the hospital with sudden onset and severe scrotal pain. He was found to have an abscess involving the seminal vesicle and this was drained via transrectal ultrasound-guided aspiration. He also underwent suprapubic catheter placement. The hematology service has been asked to see him for anemia and persistent thrombocytopenia. Plan 1. iron deficiency anemia with inflammatory component: will give iron sucrose 100mg IV x 1. 2. stop oral iron d/t constipation 3. constipation: increase lactulose to qid may need manual disimpaction, enema support, will defer to primary service. Attending Statement The exam, history, and the medical decision-making described in the above note were completed with the assistance of the mid-level provider. I reviewed and agree with the findings presented. I attest that I had a [id number] encounter with the patient on the same day, and personally performed and documented my assessment and findings in the medical record. Feels he's about to have BM. Still no BM from yesterday's lactulose and suppository. Noted improve platelet count. Discussed parenteral iron for anemia. DC iron orally. Margo Randolph May 19, 2017 11:44 Sofia Rankin MD May 19, 2017 13:54
[2017-05-19] MEDS ORDERED: IRON SUCROSE INJ 100 MG in SODIUM CHLORIDE 0.9% INJ 100 ML IV ONE (12:00)
[2017-05-19] MEDS: MAGNESIUM HYDROXIDE SUSP 30 ML CUP PO SCH (12:03)
[2017-05-19] MEDS: ERTAPENEM INJ 1,000 MG in SODIUM CHLORIDE 0.9% INJ 100 ML IV SCH (13:49)
[2017-05-19] MEDS ORDERED: LEVOTHYROXINE SODIUM 25 MCG TAB PO SCH (16:00)
[2017-05-19] MEDS ORDERED: SOD PHOSPHATE/SOD BIPHOSPHATE (ADULT) ENEMA 133ML RECTAL ONE (16:15)
[2017-05-19] MEDS ORDERED: SODIUM CHLOR 0.9% 1000 ML INJ 1,000 ML IV ONE (18:00)
[2017-05-20] VITALS (10 sets, daily range): BP systolic 127–158; BP diastolic 71–92; PULSE 85–99; RESP 16–20; TEMP 98.1–98.6; O2SAT 96–99
[2017-05-20] MEDS: INSULIN ASPART SUPPLEMENTAL SCALE SQ SCH ×4 (06:04→20:52)
[2017-05-20] MEDS: DOCUSATE SODIUM 50 MG/SENNA 8.6 MG TAB PO SCH ×2 (09:00→20:51)
[2017-05-20] MEDS: LACTULOSE SYRUP 20 GM/30 ML CUP PO SCH ×4 (09:00→20:51)
[2017-05-20] MEDS: MAGNESIUM HYDROXIDE SUSP 30 ML CUP PO SCH (09:00)
[2017-05-20] MEDS: SODIUM CHLORIDE 0.9% FLUSH 10 ML FLUSH IV FLUSH SCH ×2 (09:41→20:51)
[2017-05-20] MEDS: INSULIN DETEMIR 100 UNITS/ML VIAL SQ SCH ×2 (09:44→20:52)
[2017-05-20] MEDS: oxyCODONE/ACETAMINOPHEN 10 MG/325 MG TAB PO PRN ×2 (09:52→20:51)
--- NOTE | 2017-05-20 12:33 | HHI.PR ---
Subjective Patient symptoms today Pt seen and examined. Feeling better. Scrotum slab off mill tender. No fevers. Objective Vital Signs Vital Signs Date Time Temp Pulse Resp B/P Pulse Ox O2 Delivery O2 Flow Rate FiO2 05/20/17 08:00 98.2 92 16 127/80 98 05/20/17 04:00 98.1 90 18 153/73 96 05/20/17 04:00 Room Air 05/20/17 00:00 98.2 96 18 158/92 98 05/20/17 00:00 Room Air 05/19/17 21:09 150/70 05/19/17 20:00 99 05/19/17 20:00 98.3 107 18 193/91 98 05/19/17 20:00 Room Air 05/19/17 15:02 97.9 107 18 158/89 94 Intake & Output 05/20/17 05/20/17 07:00 19:00 Intake Total 1480 ml Output Total 900 ml Balance 580 ml Intake Oral 480 ml IV Total 1000 ml Output Urine Total 900 ml # Bowel Movements 8 Result Diagram: 05/19/1761405/19/17614 Objective Remarks Abd:soft,nt,nd Terrazas with clear urine Left testicle with less swelling today 05/15 Abd:soft,nt,nd SP tube with clear urine Left testicle with less swelling today 05/17 Abd:soft,nt,nd SP tube with clear urine Left testicle still swollen and tender 05/20 Abd:soft,nt,nd SP tube in place Scrotum still with swelling and slight tenderness; but improving Medications and IVs Current Medications Medications (Trade) Dose Ordered Sig/Preet Route Start Time Stop Time Status Last Admin (NS Flush) 2 ml UNSCH PRN IV FLUSH 05/11/17 12:45 05/17/17 15:12 (NS Flush) 2 ml BID IV FLUSH 05/11/17 12:45 05/20/17 09:41 (Zofran Inj) 4 mg Q6H PRN IVP 05/11/17 13:45 (Narcan Inj) 0.4 mg UNSCH PRN IV 05/11/17 13:45 (Percocet 10-325 Mg) 1 tab Q4H PRN PO 05/11/17 13:45 05/20/17 09:52 (Percocet 10-325 Mg) 2 tab Q4H PRN PO 05/11/17 13:45 05/17/17 03:51 (D50w (Vial) Inj) 50 ml UNSCH PRN IV 05/11/17 13:45 (Glucagon Inj) 1 mg UNSCH PRN OTHER 05/11/17 13:45 (Tylenol) 650 mg Q4H PRN PO 05/11/17 17:30 05/14/17 00:18 (Tina-Colace) 2 tab BID PO 05/14/17 14:45 05/19/17 08:54 (Benadryl) 50 mg Q6H PRN PO 05/14/17 20:45 05/16/17 07:45 (Levemir Inj) 10 units Q12HR SQ 05/15/17 09:00 05/20/17 09:44 Morphine Sulfate 2 mg 2 mg Q3H PRN IV PUSH 05/16/17 11:30 (INVanz INJ/NS Inj) 100 ml @ 200 mls/hr Q24H IV 05/16/17 14:00 05/19/17 13:49 (Apresoline Inj) 10 mg Q4H PRN IV PUSH 05/16/17 15:15 05/16/17 15:39 (Ferrous Sulfate) 325 mg BID PO 05/16/17 21:00 Hold 05/18/17 21:27 (Norvasc) 10 mg DAILY PO 05/17/17 10:00 05/20/17 09:40 (Milk Of Magnesia Liq) 30 ml DAILY PO 05/19/17 10:00 05/19/17 12:03 (Lactulose Liq) 30 ml QID PO 05/19/17 13:00 05/19/17 13:49 Assessment and Plan Assessment and Plan 56 y.o non-compliant male with left epididymalorchitis and prostatic/seminal vesicle abcess Continue Vit K to correct PT/INR For unroofing of abcess in AM tomorrow and SP tube insertion Continue IV ABX NPO after MN 05/15 56 y.o non-compliant male with left epididymalorchitis and prostatic/seminal vesicle abcess s/p SP tube insertion with aspiration of seminal vesicle abcess Continue IV ABX Maintain SP tube Needs w/u for anemia and ARF Pt will need SPP in 3-4 months after he is medically optimized and infection has resulted. 05/20 56 y.o non-compliant male with left epididymalorchitis and prostatic/seminal vesicle abcess s/p SP tube insertion with aspiration of seminal vesicle abcess Continue IV ABX as outpt. Maintain SP tube F/U in office in 2 weeks 05/17 56 y.o non-compliant male with left epididymalorchitis and prostatic/seminal vesicle abcess s/p SP tube insertion with aspiration of seminal vesicle abcess PICC line today Will need IV abx for another 6 weeks per ID recommendations Continue SP tube drainage SPP in 4-6 months Sunil Oh DO May 20, 2017 12:33
--- NOTE | 2017-05-20 14:06 | HHI.FPPN ---
Subjective Remarks No acute events overnight. Afebrile, vital signs stable. Patient continues to complain of hardness and swelling in his scrotum. Had 3 bowel movements yesterday, status post enema. (Candice Sanders MD R3) Objective Vitals Vital Signs Date Time Temp Pulse Resp B/P Pulse Ox O2 Delivery O2 Flow Rate FiO2 05/20/17 12:00 98.2 94 18 136/74 97 05/20/17 08:00 98.2 92 16 127/80 98 05/20/17 04:00 98.1 90 18 153/73 96 05/20/17 04:00 Room Air 05/20/17 00:00 98.2 96 18 158/92 98 05/20/17 00:00 Room Air 05/19/17 21:09 150/70 05/19/17 20:00 99 05/19/17 20:00 98.3 107 18 193/91 98 05/19/17 20:00 Room Air 05/19/17 15:02 97.9 107 18 158/89 94 I/O 05/19/17 05/19/17 05/19/17 05/20/17 05/20/17 05/20/17 07:00 15:00 23:00 07:00 15:00 23:00 Intake Total 120 ml 1600 ml 240 ml Output Total 300 ml 2900 ml 800 ml Balance -180 ml -1300 ml -560 ml Intake Oral 120 ml 600 ml 240 ml IV Total 1000 ml Output Urine Total 300 ml 2900 ml 800 ml # Bowel Movements 0 5 4 (Candice Sanders MD R3) Result Diagram: 05/19/1761405/19/1715 Objective Remarks GENERAL: wdwn male, resting in bed, family at bedside. SKIN: Warm and dry. HEAD: Normocephalic. AT EYES: No scleral icterus. No injection or drainage. ENT: OP clear. MM moist NECK: Supple, trachea midline. No JVD or lymphadenopathy. CARDIOVASCULAR: Regular rate and rhythm without murmurs, gallops, or rubs. RESPIRATORY: Breath sounds equal bilaterally. No accessory muscle use. GASTROINTESTINAL: Abdomen soft, non-tender, nondistended. : Suprapubic catheter in place, insertion area without drainage or erythema. Right scrotum swollen however much improved status post procedure. Persistent scrotal erythema. MUSCULOSKELETAL: No cyanosis, or edema. No calf tenderness BACK: Nontender without obvious deformity. No CVA tenderness. NEURO: Awake and alert. Normal speech. (Candice Sanders MD R3) A/P Assessment and Plan 56-year-old male admitted for sepsis secondary to urinary tract infection and scrotal abscess, status post suprapubic catheter insertion and transrectal draining of seminal vesicle abscess on 05/14. Plan as below. Discharge Planning To home once C. difficile ruled out, likely tomorrow. (Candice Sanders MD R3) Attending Attestation Patient seen and examined with Dr. Sanders. Case reviewed and discussed Agree with plan of care as discussed with me and documented in the resident note. (Sulma Dwyer MD) Problem List: (1) Sepsis Status: Resolved Plan: With lactic acid of 3.1 on admission, currently resolved. No fevers since drainage of seminal vesicle abscess. Culture of fluid positive for ESBL Escherichia coli. Sensitive to Zosyn. Urology consulted, patient status post suprapubic catheter placement and drainage of the seminal vesicle abscess on 05/14 Infectious disease consulted, appreciate antibiotic recommendations. DC Zosyn and Levaquin. Started on Ertapenem, PICC placement on 05/17. (2) Abscess, seminal vesicle Status: Acute Plan: Plan as above (3) UTI (urinary tract infection) Status: Acute Plan: Patient with history of urinary retention, admitted with indwelling Terrazas catheter. UA showed: 300 glucose, trace ketones, high nitrates, high leukocyte esterase, 61 white blood cells, moderate high bacteria. Urine culture pending. Antibiotics as above. Suprapubic catheter placed 05/14 (4) Thrombocytopenia Status: Resolved Plan: Platelets 211 on admission, decreased to 98 on 05/16. Improving since, now 226. Hit panel negative Hematology consulted, likely consumptive (5) Anemia Status: Acute Plan: Patient with stable H&H. Iron studies c/w Fe deficiency anemia. Seen by Hematology, started on Fe BID. (6) CKD (chronic kidney disease) Status: Chronic Plan: Patient with elevated Cr. Likely chronic 2/2 diabetic nephropathy. Renal US wnl. Continue to monitor. (7) Atrial fibrillation Status: Acute Plan: Patient with recent diagnosis of atrial fibrillation, EKG in the emergency department showed sinus tachycardia with nonspecific ST changes. Recently given Coumadin 5 mg for his atrial fibrillation, followed by Dr. Briceño. -Restart Coumadin today (8) DM (diabetes mellitus) Status: Acute Plan: Increased Levemir to 10 units twice a day with good response. Patient blood sugars now controlled. Continue sliding scale insulin. (9) Hypertension Status: Acute Plan: Patient hypertensive with BPs of 170s-200s systolic. Started Amlodipine 10 mg daily. Hydralizine PRN. Continue to monitor and adjust meds as needed. (10) Constipation Status: Resolved Plan: Resolved. Status post enema yesterday. Patient had 3 good bowel movements. (11) Nutrition, metabolism, and development symptoms Status: Acute Plan: Nutrition: Diabetic diet Electrolytes: Replete when necessary DVT ppx: Mechanical SCDs, Heparin 5,000 units sq q 8 hours will restart 24 hours after procedure. GI ppx: not indicated at this time. (Candice Sanders MD R3) Candice Sanders MD R3 May 20, 2017 14:06 Sulma Dwyer MD May 20, 2017 14:27
--- NOTE | 2017-05-20 14:08 | HHI.IDPN ---
Subjective Subjective Remarks no fever co tender testicle no abd pain co constipation 9 BMs in last 24 hrs Antibiotics Ertapenem Allergies: Coded Allergies: *MDRO Multi-Drug Resistant Organism (Verified Adverse Reaction, Unknown, ) ESBL E.Coli (seminal fluid)-05/14/17 Objective . Vital Signs Date Time Temp Pulse Resp B/P Pulse Ox O2 Delivery O2 Flow Rate FiO2 05/20/17 12:00 98.2 94 18 136/74 97 05/20/17 08:00 98.2 92 16 127/80 98 05/20/17 04:00 98.1 90 18 153/73 96 05/20/17 04:00 Room Air 05/20/17 00:00 98.2 96 18 158/92 98 05/20/17 00:00 Room Air 05/19/17 21:09 150/70 05/19/17 20:00 99 05/19/17 20:00 98.3 107 18 193/91 98 05/19/17 20:00 Room Air 05/19/17 15:02 97.9 107 18 158/89 94 05/19/17 05/19/17 05/20/17 15:00 23:00 07:00 Intake Total 1600 ml 240 ml Output Total 2900 ml 800 ml Balance -1300 ml -560 ml Intake Oral 600 ml 240 ml IV Total 1000 ml Output Urine Total 2900 ml 800 ml # Bowel Movements 5 4 . Laboratory Tests Test 05/19/17 06:15 White Blood Count 11.0 TH/MM3 Red Blood Count 2.86 MIL/MM3 Hemoglobin 8.4 GM/DL Hematocrit 25.2 % Mean Corpuscular Volume 87.8 FL Mean Corpuscular Hemoglobin 29.2 PG Mean Corpuscular Hemoglobin 33.2 % Concent Red Cell Distribution Width 16.8 % Platelet Count 226 TH/MM3 Mean Platelet Volume 8.2 FL Neutrophils (%) (Auto) 84.6 % Lymphocytes (%) (Auto) 7.6 % Monocytes (%) (Auto) 6.6 % Eosinophils (%) (Auto) 0.9 % Basophils (%) (Auto) 0.3 % Neutrophils # (Auto) 9.3 TH/MM3 Lymphocytes # (Auto) 0.8 TH/MM3 Monocytes # (Auto) 0.7 TH/MM3 Eosinophils # (Auto) 0.1 TH/MM3 Basophils # (Auto) 0.0 TH/MM3 CBC Comment DIFF FINAL Differential Comment Laboratory Tests Test 05/19/17 06:15 Sodium Level 143 MEQ/L Potassium Level 3.6 MEQ/L Chloride Level 108 MEQ/L Carbon Dioxide Level 26.5 MEQ/L Anion Gap 9 MEQ/L Blood Urea Nitrogen 11 MG/DL Creatinine 1.10 MG/DL Estimat Glomerular Filtration 83 ML/MIN Rate Random Glucose 111 MG/DL Calcium Level 8.8 MG/DL Ferritin 245 NG/ML Imaging Last Impressions Abdomen X-Ray 05/19/17 0000 Signed Impressions: Service Date/Time: Friday, May 19, 2017 10:13 - CONCLUSION: 1. There is a moderate amount of diffuse stool predominantly from the right colon. 2. The bowel gas pattern is nonspecific with some mild dilated loops of small bowel and some air-fluid levels. 3. No evidence of free air. Lio Fernández MD Chest X-Ray 05/17/17 0000 Signed Impressions: Service Date/Time: Wednesday, May 17, 2017 14:54 - CONCLUSION: PICC line in good position. Fish Rodriguez MD FACR Renal Ultrasound 05/16/17 0000 Signed Impressions: Service Date/Time: April 13:57 - CONCLUSION: 1. Echogenic renal cortex suggesting underlying medical renal disease. 2. Incidental 8 mm stone seen on the right. 3. No findings to indicate renal obstruction. 4. Very minimal amount of free fluid adjacent to the liver margin. Beka Rodriguez MD Pelvis CT 05/12/17 0000 Signed Impressions: Service Date/Time: Friday, May 12, 2017 10:48 - CONCLUSION: 1. Marked circumferential thickening of the bladder with Corey catheter balloon displaced anteriorly by a bladder mass or enlarged prostate measuring up to 4.9 cm in diameter. 3.8 cm mass in the region of the left seminal vesicle. Differential diagnosis includes infection and neoplasm. 2. Bilateral hydroceles. Alex De MD Scrotum Ultrasound 05/11/17 0947 Signed Impressions: Service Date/Time: Thursday, May 11, 2017 10:14 - CONCLUSION: 1. Increased blood flow within the left testicle and epididymis suggestive of epididymoorchitis. A small left hydrocele is present. 2. Bilateral testicular microlithiasis. Glenn Hamlin MD Physical Exam CONSTITUTIONAL/GENERAL: This is an adequately nourished patient, in no apparent distress. TUBES/LINES/DRAINS: SKIN: No rashes, or lesions. EYES: No scleral icterus. No injection or drainage. Fundi not examined. CARDIOVASCULAR: Regular rate and rhythm without murmurs, gallops, or rubs. No JVD. Peripheral pulses symmetric. RESPIRATORY/CHEST: Symmetric, unlabored respirations. Clear to auscultation. Breath sounds equal bilaterally. No wheezes, rales, or rhonchi. GASTROINTESTINAL: Abdomen soft, not tender to palpation, mildly distended. No hepato-splenomegaly, or palpable masses. Bowel sounds present. GENITOURINARY: Without palpable bladder distension. SP catheter in place with failry clear yellow urine L testicle unchanged from day, remians enlarged hard and tender to palpation MUSCULOSKELETAL: Extremities without clubbing, cyanosis, or edema. NEUROLOGICAL: Awake and alert. Non focal PSYCHIATRIC: No obvious anxiety/depression. no apparent hallucinations or other psychotic thought process. Assessment & Plan Remarks UTI in the settings of chronic corey left epididymalorchitis and prostatic/seminal vesicle abcess Prostatic abscess - sp unroofing - - ESBL + E.coli Sepsis 2/2 complicated UTI, clinically resolved Abx associated diarrhea Worsening leukocytis ? source - C.diff vs on going prostatic infx - cont Ertapenem x 6 wks total monitor WBC consider to repeat pelvis US if persistent ow unexplained fever ro C.diff dw Dr Adriano Britt,Martha Ashford MD May 20, 2017 14:08
[2017-05-20] MEDS ORDERED: WARFARIN SOD 5 MG TAB PO SCH (16:00)
[2017-05-20] MEDS: ERTAPENEM INJ 1,000 MG in SODIUM CHLORIDE 0.9% INJ 100 ML IV SCH (16:07)
[2017-05-21 04:50] LABS: BICARBONATE 27.2 MEQ/L (21.0-32.0); POTASSIUM 3.5 MEQ/L (3.5-5.1)
[2017-05-21 05:29] LABS: AUTOMATED NEUTROPHIL # 8.9 TH/MM3 (1.8-7.7); BASOPHIL # 0.1 TH/MM3 (0-0.2); BASOPHIL % 0.6 % (0.0-2.0); EOSINOPHIL # 0.1 TH/MM3 (0-0.4); HEMO FLAGS DIFF FINAL; LYMPH % 6.6 % (9.0-44.0); LYMPHOCYTE # 0.7 TH/MM3 (1.0-4.8); MEAN CELL VOLUME 86.4 FL (80.0-100.0); MEAN CORPUSCULAR HEMOGLOBIN 29.3 PG (27.0-34.0); MEAN CORPUSCULAR HGB CONC 33.9 % (32.0-36.0); MONO % 11.1 % (0.0-8.0); NEUT % 80.7 % (16.0-70.0); PLATELET COUNT 275 TH/MM3 (150-450); RED BLOOD COUNT 2.78 MIL/MM3 (4.50-5.90); RED CELL DISTRIBUTION WIDTH 16.9 % (11.6-17.2)
[2017-05-21] MEDS: INSULIN ASPART SUPPLEMENTAL SCALE SQ SCH ×4 (06:38→20:43)
[2017-05-21 07:57] VITALS: PULSE 87
[2017-05-21 08:00] VITALS: BP 162/76; PULSE 88; RESP 18; TEMP 98.1; O2SAT 96
[2017-05-21] MEDS: LACTULOSE SYRUP 20 GM/30 ML CUP PO SCH ×4 (08:36→20:43)
[2017-05-21] MEDS: MAGNESIUM HYDROXIDE SUSP 30 ML CUP PO SCH (08:36)
[2017-05-21] MEDS: DOCUSATE SODIUM 50 MG/SENNA 8.6 MG TAB PO SCH ×2 (08:36→20:42)
[2017-05-21] MEDS: SODIUM CHLORIDE 0.9% FLUSH 10 ML FLUSH IV FLUSH SCH ×2 (08:37→20:43)
[2017-05-21] MEDS: INSULIN DETEMIR 100 UNITS/ML VIAL SQ SCH ×2 (08:39→20:43)
[2017-05-21] MEDS ORDERED: EPIN1INJ21 IV PUSH (10:58)
[2017-05-21] MEDS ORDERED: INVA1INJ IV (10:58)
[2017-05-21] MEDS ORDERED: EPIN1INJ21 SQ (10:58)
[2017-05-21] MEDS ORDERED: SOLU250I IV PUSH (10:58)
--- NOTE | 2017-05-21 11:26 | HHI.FPPN ---
Subjective Remarks No acute events overnight. Afebrile, vital signs stable. Patient complains of diffuse abdominal pain this morning and nausea. He denies any emesis. No additional bowel movements since yesterday. Objective Vitals Vital Signs Date Time Temp Pulse Resp B/P Pulse Ox O2 Delivery O2 Flow Rate FiO2 05/21/17 08:00 Room Air 05/21/17 07:57 87 05/21/17 04:00 Room Air 05/21/17 00:00 Room Air 05/20/17 23:10 98.6 89 16 140/77 98 05/20/17 21:38 98.5 94 16 149/71 96 05/20/17 20:00 98 05/20/17 20:00 Room Air 05/20/17 16:00 98.4 91 18 141/71 97 05/20/17 12:00 98.2 94 18 136/74 97 I/O 05/20/17 05/20/17 05/20/17 05/21/17 05/21/17 05/21/17 07:00 15:00 23:00 07:00 15:00 23:00 Intake Total 240 ml 360 ml 240 ml 0 ml Output Total 800 ml 425 ml 200 ml 650 ml Balance -560 ml -65 ml 40 ml -650 ml Intake Oral 240 ml 360 ml 240 ml 0 ml Output Urine Total 800 ml 425 ml 200 ml 650 ml # Bowel Movements 4 0 0 0 Result Diagram: 05/21/1742205/21/17422 Objective Remarks GENERAL: wdwn male, resting in bed, family at bedside. SKIN: Warm and dry. HEAD: Normocephalic. AT EYES: No scleral icterus. No injection or drainage. ENT: OP clear. MM moist NECK: Supple, trachea midline. No JVD or lymphadenopathy. CARDIOVASCULAR: Regular rate and rhythm without murmurs, gallops, or rubs. RESPIRATORY: Breath sounds equal bilaterally. No accessory muscle use. GASTROINTESTINAL: Abdomen soft, non-tender, nondistended. : Suprapubic catheter in place, insertion area without drainage or erythema. Right scrotum swollen however much improved status post procedure. Persistent scrotal erythema. MUSCULOSKELETAL: No cyanosis, or edema. No calf tenderness BACK: Nontender without obvious deformity. No CVA tenderness. NEURO: Awake and alert. Normal speech. A/P Assessment and Plan 56-year-old male admitted for sepsis secondary to urinary tract infection and scrotal abscess, status post suprapubic catheter insertion and transrectal draining of seminal vesicle abscess on 05/14. Plan as below. Discharge Planning To home once C. difficile ruled out, likely tomorrow. Problem List: (1) Sepsis Status: Resolved Plan: With lactic acid of 3.1 on admission, currently resolved. No fevers since drainage of seminal vesicle abscess. Culture of fluid positive for ESBL Escherichia coli. Sensitive to Zosyn. Urology consulted, patient status post suprapubic catheter placement and drainage of the seminal vesicle abscess on 05/14 Infectious disease consulted, appreciate antibiotic recommendations. DC Zosyn and Levaquin. Started on Ertapenem, PICC placement on 05/17. Patient will need total of 6 weeks of antibiotics which can be done as an outpatient. (2) Abscess, seminal vesicle Status: Acute Plan: Plan as above (3) UTI (urinary tract infection) Status: Resolved Plan: Patient with history of urinary retention, admitted with indwelling Terrazas catheter. UA showed: 300 glucose, trace ketones, high nitrates, high leukocyte esterase, 61 white blood cells, moderate high bacteria. Urine culture pending. Antibiotics as above. Suprapubic catheter placed 05/14 (4) Thrombocytopenia Status: Resolved Plan: Platelets 211 on admission, decreased to 98 on 05/16. Improving since (on 05/18 plt count of 155) Hit panel negative Hematology consulted, likely consumptive (5) Anemia Status: Acute Plan: Patient with stable H&H. Iron studies c/w Fe deficiency anemia. Seen by Hematology, started on Fe BID. Recheck CBC in AM. (6) CKD (chronic kidney disease) Status: Chronic Plan: Patient with elevated Cr. Likely chronic 2/2 diabetic nephropathy. Renal US wnl. Continue to monitor. (7) Atrial fibrillation Status: Acute Plan: Patient with recent diagnosis of atrial fibrillation, EKG in the emergency department showed sinus tachycardia with nonspecific ST changes. Recently given Coumadin 5 mg for his atrial fibrillation, followed by Dr. Briceño. Plan to restart anticoagulation once patient is stable. (8) DM (diabetes mellitus) Status: Acute Plan: Increased Levemir to 10 units twice a day with good response. Patient blood sugars now controlled. Continue sliding scale insulin. (9) Hypertension Status: Acute Plan: Patient hypertensive with BPs of 170s-200s systolic. Started Amlodipine 10 mg daily. Hydralizine PRN. Continue to monitor and adjust meds as needed. (10) Constipation Status: Resolved Plan: Patient status post Dulcolax and fleets enema. Had many large bowel movements 2 days ago, nothing since that time. Continue to monitor (11) Nutrition, metabolism, and development symptoms Status: Acute Plan: Nutrition: Diabetic diet Electrolytes: Replete when necessary DVT ppx: Mechanical SCDs, Heparin 5,000 units sq q 8 hours will restart 24 hours after procedure. GI ppx: not indicated at this time. Candice Sanders MD R3 May 21, 2017 11:26
[2017-05-21 12:00] VITALS: BP 139/83; PULSE 93; RESP 16; TEMP 98.2; O2SAT 96
--- NOTE | 2017-05-21 13:17 | HHI.PR ---
Subjective Patient symptoms today Pt seen and examined. No fevers. Some diarrhea. Left hemiscrotum still swollen and tender; indurated on exam; no fluctuance Objective Vital Signs Vital Signs Date Time Temp Pulse Resp B/P Pulse Ox O2 Delivery O2 Flow Rate FiO2 05/21/17 08:00 Room Air 05/21/17 07:57 87 05/21/17 04:00 Room Air 05/21/17 00:00 Room Air 05/20/17 23:10 98.6 89 16 140/77 98 05/20/17 21:38 98.5 94 16 149/71 96 05/20/17 20:00 98 05/20/17 20:00 Room Air 05/20/17 16:00 98.4 91 18 141/71 97 Result Diagram: 05/21/1742205/21/17422 Objective Remarks Abd:soft,nt,nd Terrazas with clear urine Left testicle with less swelling today 05/15 Abd:soft,nt,nd SP tube with clear urine Left testicle with less swelling today 05/17 Abd:soft,nt,nd SP tube with clear urine Left testicle still swollen and tender 05/20 Abd:soft,nt,nd SP tube in place Scrotum still with swelling and slight tenderness; but improving 05/21 Abd:soft,nt,nd SP tube in place Scrotum still with swelling and slight tenderness Medications and IVs Current Medications Medications (Trade) Dose Ordered Sig/Preet Route Start Time Stop Time Status Last Admin (NS Flush) 2 ml UNSCH PRN IV FLUSH 05/11/17 12:45 05/17/17 15:12 (NS Flush) 2 ml BID IV FLUSH 05/11/17 12:45 05/21/17 08:37 (Zofran Inj) 4 mg Q6H PRN IVP 05/11/17 13:45 (Narcan Inj) 0.4 mg UNSCH PRN IV 05/11/17 13:45 (Percocet 10-325 Mg) 1 tab Q4H PRN PO 05/11/17 13:45 05/20/17 20:51 (Percocet 10-325 Mg) 2 tab Q4H PRN PO 05/11/17 13:45 05/17/17 03:51 (D50w (Vial) Inj) 50 ml UNSCH PRN IV 05/11/17 13:45 (Glucagon Inj) 1 mg UNSCH PRN OTHER 05/11/17 13:45 (Tylenol) 650 mg Q4H PRN PO 05/11/17 17:30 05/14/17 00:18 (Tina-Colace) 2 tab BID PO 05/14/17 14:45 05/21/17 08:36 (Benadryl) 50 mg Q6H PRN PO 05/14/17 20:45 05/16/17 07:45 (Levemir Inj) 10 units Q12HR SQ 05/15/17 09:00 05/21/17 08:39 Morphine Sulfate 2 mg 2 mg Q3H PRN IV PUSH 05/16/17 11:30 (INVanz INJ/NS Inj) 100 ml @ 200 mls/hr Q24H IV 05/16/17 14:00 05/20/17 16:07 (Apresoline Inj) 10 mg Q4H PRN IV PUSH 05/16/17 15:15 05/16/17 15:39 (Ferrous Sulfate) 325 mg BID PO 05/16/17 21:00 Hold 05/18/17 21:27 (Norvasc) 10 mg DAILY PO 05/17/17 10:00 05/21/17 08:37 (Milk Of Magnesia Liq) 30 ml DAILY PO 05/19/17 10:00 05/21/17 08:36 (Lactulose Liq) 30 ml QID PO 05/19/17 13:00 05/21/17 08:36 Assessment and Plan Assessment and Plan 56 y.o non-compliant male with left epididymalorchitis and prostatic/seminal vesicle abcess Continue Vit K to correct PT/INR For unroofing of abcess in AM tomorrow and SP tube insertion Continue IV ABX NPO after MN 05/15 56 y.o non-compliant male with left epididymalorchitis and prostatic/seminal vesicle abcess s/p SP tube insertion with aspiration of seminal vesicle abcess Continue IV ABX Maintain SP tube Needs w/u for anemia and ARF Pt will need SPP in 3-4 months after he is medically optimized and infection has resulted. 05/17 56 y.o non-compliant male with left epididymalorchitis and prostatic/seminal vesicle abcess s/p SP tube insertion with aspiration of seminal vesicle abcess PICC line today Will need IV abx for another 6 weeks per ID recommendations Continue SP tube drainage SPP in 4-6 months 05/20 56 y.o non-compliant male with left epididymalorchitis and prostatic/seminal vesicle abcess s/p SP tube insertion with aspiration of seminal vesicle abcess Continue IV ABX as outpt. Maintain SP tube F/U in office in 2 weeks 05/21 05/17 56 y.o non-compliant male with left epididymalorchitis and prostatic/seminal vesicle abcess s/p SP tube insertion with aspiration of seminal vesicle abcess Continue IV ABX; no fevers and normal WBC Continue SP tube drainage Sunil Oh DO May 21, 2017 13:17
[2017-05-21] MEDS: ERTAPENEM INJ 1,000 MG in SODIUM CHLORIDE 0.9% INJ 100 ML IV SCH (15:11)
[2017-05-21 16:00] VITALS: BP 141/82; PULSE 103; RESP 18; TEMP 98; O2SAT 97
[2017-05-21 20:00] VITALS: BP 157/76; PULSE 91; PULSE 93; RESP 16; TEMP 98.8; O2SAT 96
[2017-05-21] MEDS: oxyCODONE/ACETAMINOPHEN 10 MG/325 MG TAB PO PRN (20:42)
[2017-05-21 21:12] LABS: C. DIFF EPI 027 PRESUMPTIVE NEGATIVE (NEGATIVE); C. DIFF TOXIN PCR NEGATIVE (NEGATIVE)
[2017-05-22] VITALS: BP 143/78; PULSE 90; RESP 17; TEMP 98.1; O2SAT 96
[2017-05-22 04:00] VITALS: BP 156/74; PULSE 65; RESP 18; TEMP 97.3; O2SAT 93
[2017-05-22 04:55] LABS: BASOPHIL % 0.4 % (0.0-2.0); EOSINOPHIL # 0.1 TH/MM3 (0-0.4); EOSINOPHIL % 0.7 % (0.0-4.0); HEMATOCRIT 23.6 % (39.0-51.0); HEMO FLAGS DIFF FINAL; LYMPH % 9.2 % (9.0-44.0); MEAN CORPUSCULAR HEMOGLOBIN 29.2 PG (27.0-34.0); MEAN CORPUSCULAR HGB CONC 33.5 % (32.0-36.0); MONO % 5.8 % (0.0-8.0); NEUT % 83.9 % (16.0-70.0); PLATELET COUNT 318 TH/MM3 (150-450); RED BLOOD COUNT 2.72 MIL/MM3 (4.50-5.90); RED CELL DISTRIBUTION WIDTH 16.5 % (11.6-17.2); WHITE BLOOD COUNT 10.7 TH/MM3 (4.0-11.0)
[2017-05-22] MEDS: INSULIN ASPART SUPPLEMENTAL SCALE SQ SCH ×3 (05:49→17:59)
[2017-05-22 08:00] VITALS: BP 152/75; PULSE 86; RESP 20; TEMP 97.8; O2SAT 96
--- NOTE | 2017-05-22 08:53 | HHI.PR ---
Subjective Patient symptoms today Pt seen and examined. Feels well. Scrotum less painful. Objective Vital Signs Vital Signs Date Time Temp Pulse Resp B/P Pulse Ox O2 Delivery O2 Flow Rate FiO2 05/22/17 04:00 97.3 65 18 156/74 93 05/22/17 04:00 Room Air 05/22/17 00:00 Room Air 05/22/17 00:00 98.1 90 17 143/78 96 05/21/17 20:00 91 05/21/17 20:00 Room Air 05/21/17 20:00 98.8 93 16 157/76 96 05/21/17 16:00 98.0 103 18 141/82 97 05/21/17 12:00 98.2 93 16 139/83 96 Intake & Output 05/22/17 05/22/17 07:00 19:00 Intake Total 480 ml Output Total 800 ml Balance -320 ml Intake Oral 480 ml Output Urine Total 800 ml # Bowel Movements 1 Result Diagram: 05/22/17 0430 05/21/17 0423 Objective Remarks Abd:soft,nt,nd Terrazas with clear urine Left testicle with less swelling today 05/15 Abd:soft,nt,nd SP tube with clear urine Left testicle with less swelling today 05/17 Abd:soft,nt,nd SP tube with clear urine Left testicle still swollen and tender 05/20 Abd:soft,nt,nd SP tube in place Scrotum still with swelling and slight tenderness; but improving 05/21 Abd:soft,nt,nd SP tube in place Scrotum still with swelling and slight tenderness 05/22 Abd:soft,nt,nd SP tube in place; urine clear Scrotum still with swelling and slight tenderness Medications and IVs Current Medications Medications (Trade) Dose Ordered Sig/Preet Route Start Time Stop Time Status Last Admin (NS Flush) 2 ml UNSCH PRN IV FLUSH 05/11/17 12:45 05/17/17 15:12 (NS Flush) 2 ml BID IV FLUSH 05/11/17 12:45 05/21/17 20:43 (Zofran Inj) 4 mg Q6H PRN IVP 05/11/17 13:45 (Narcan Inj) 0.4 mg UNSCH PRN IV 05/11/17 13:45 (Percocet 10-325 Mg) 1 tab Q4H PRN PO 05/11/17 13:45 05/20/17 20:51 (Percocet 10-325 Mg) 2 tab Q4H PRN PO 05/11/17 13:45 05/21/17 20:42 (D50w (Vial) Inj) 50 ml UNSCH PRN IV 05/11/17 13:45 (Glucagon Inj) 1 mg UNSCH PRN OTHER 05/11/17 13:45 (Tylenol) 650 mg Q4H PRN PO 05/11/17 17:30 05/14/17 00:18 (Tina-Colace) 2 tab BID PO 05/14/17 14:45 05/21/17 20:42 (Benadryl) 50 mg Q6H PRN PO 05/14/17 20:45 05/16/17 07:45 (Levemir Inj) 10 units Q12HR SQ 05/15/17 09:00 05/21/17 08:39 Morphine Sulfate 2 mg 2 mg Q3H PRN IV PUSH 05/16/17 11:30 (INVanz INJ/NS Inj) 100 ml @ 200 mls/hr Q24H IV 05/16/17 14:00 05/21/17 15:11 (Apresoline Inj) 10 mg Q4H PRN IV PUSH 05/16/17 15:15 05/16/17 15:39 (Ferrous Sulfate) 325 mg BID PO 05/16/17 21:00 Hold 05/18/17 21:27 (Norvasc) 10 mg DAILY PO 05/17/17 10:00 05/21/17 08:37 (Milk Of Magnesia Liq) 30 ml DAILY PO 05/19/17 10:00 05/21/17 08:36 (Lactulose Liq) 30 ml QID PO 05/19/17 13:00 05/21/17 13:28 Assessment and Plan Assessment and Plan 56 y.o non-compliant male with left epididymalorchitis and prostatic/seminal vesicle abcess Continue Vit K to correct PT/INR For unroofing of abcess in AM tomorrow and SP tube insertion Continue IV ABX NPO after MN 05/15 56 y.o non-compliant male with left epididymalorchitis and prostatic/seminal vesicle abcess s/p SP tube insertion with aspiration of seminal vesicle abcess Continue IV ABX Maintain SP tube Needs w/u for anemia and ARF Pt will need SPP in 3-4 months after he is medically optimized and infection has resulted. 05/17 56 y.o non-compliant male with left epididymalorchitis and prostatic/seminal vesicle abcess s/p SP tube insertion with aspiration of seminal vesicle abcess PICC line today Will need IV abx for another 6 weeks per ID recommendations Continue SP tube drainage SPP in 4-6 months 05/20 56 y.o non-compliant male with left epididymalorchitis and prostatic/seminal vesicle abcess s/p SP tube insertion with aspiration of seminal vesicle abcess Continue IV ABX as outpt. Maintain SP tube F/U in office in 2 weeks 05/21 56 y.o non-compliant male with left epididymalorchitis and prostatic/seminal vesicle abcess s/p SP tube insertion with aspiration of seminal vesicle abcess Continue IV ABX Maintain SP tube 05/22 56 y.o non-compliant male with left epididymalorchitis and prostatic/seminal vesicle abcess s/p SP tube insertion with aspiration of seminal vesicle abcess Continue IV ABX Continue SP tube drainage Sunil Oh DO May 22, 2017 08:53
[2017-05-22] MEDS: MAGNESIUM HYDROXIDE SUSP 30 ML CUP PO SCH (09:00)
[2017-05-22] MEDS: DOCUSATE SODIUM 50 MG/SENNA 8.6 MG TAB PO SCH (09:00)
[2017-05-22] MEDS: INSULIN DETEMIR 100 UNITS/ML VIAL SQ SCH (09:31)
[2017-05-22] MEDS: SODIUM CHLORIDE 0.9% FLUSH 10 ML FLUSH IV FLUSH SCH (09:33)
[2017-05-22] MEDS: LACTULOSE SYRUP 20 GM/30 ML CUP PO SCH ×3 (09:33→17:28)
[2017-05-22] MEDS: oxyCODONE/ACETAMINOPHEN 10 MG/325 MG TAB PO PRN ×3 (09:34→18:01)
[2017-05-22 12:00] VITALS: BP 149/72; PULSE 91; RESP 20; TEMP 97.8; O2SAT 97
--- NOTE | 2017-05-22 13:30 | HHI.FF ---
Face to Face Verification Diagnosis: (1) Prostate abscess (2) Atrial fibrillation (3) Orchitis and epididymitis Physical Therapy Order: Evaluate and Treat, Improve ambulation Home Health Nursing Order: Medical education IV medication administration I have seen patient Nima Sheehan on 05/22/17. My clinical findings support the need for the requested home health care services because: Deconditioned w/ increased weakness Med compliance is questionable Infection w/ risk of complications Injectable med education/admin I certify that my clinical findings support that this patient is homebound because: Post-op weakness Kenneth Black MD R2 May 22, 2017 13:30
[2017-05-22] MEDS ORDERED: FERR325T20 PO (13:35)
[2017-05-22] MEDS ORDERED: AMLO10 PO (13:35)
[2017-05-22] MEDS ORDERED: OXYC1TAB36 PO (13:35)
[2017-05-22] MEDS ORDERED: ASPI81CH CHEW (13:39)
[2017-05-22] MEDS ORDERED: SENN1TAB PO (13:40)
--- NOTE | 2017-05-22 14:06 | HHI.FPPN ---
Subjective Remarks Patient is feeling well. He is still reporting pain in his left testicle. He denies any fevers or chills overnight. Denies any shortness of breath, or chest pain. He'll be discharged home with ertapenem through PICC as guided by infectious disease. Objective Vitals Vital Signs Date Time Temp Pulse Resp B/P Pulse Ox O2 Delivery O2 Flow Rate FiO2 05/22/17 12:00 97.8 91 20 149/72 97 05/22/17 10:34 18 05/22/17 08:00 97.8 86 20 152/75 96 05/22/17 04:00 97.3 65 18 156/74 93 05/22/17 04:00 Room Air 05/22/17 00:00 Room Air 05/22/17 00:00 98.1 90 17 143/78 96 05/21/17 20:00 91 05/21/17 20:00 Room Air 05/21/17 20:00 98.8 93 16 157/76 96 05/21/17 16:00 98.0 103 18 141/82 97 I/O 05/21/17 05/21/17 05/21/17 05/22/17 05/22/17 05/22/17 07:00 15:00 23:00 07:00 15:00 23:00 Intake Total 0 ml 360 ml 240 ml 240 ml Output Total 650 ml 850 ml 500 ml 300 ml Balance -650 ml -490 ml -260 ml -60 ml Intake Oral 0 ml 360 ml 240 ml 240 ml Output Urine Total 650 ml 850 ml 500 ml 300 ml # Bowel Movements 0 1 1 Result Diagram: 05/22/17 0430 05/21/17 0423 Objective Remarks GENERAL: wdwn male, resting in bed, family at bedside. SKIN: Warm and dry. HEAD: Normocephalic. AT EYES: No scleral icterus. No injection or drainage. ENT: OP clear. MM moist NECK: Supple, trachea midline. No JVD or lymphadenopathy. CARDIOVASCULAR: Regular rate and rhythm without murmurs, gallops, or rubs. RESPIRATORY: Breath sounds equal bilaterally. No accessory muscle use. GASTROINTESTINAL: Abdomen soft, non-tender, nondistended. : Suprapubic catheter in place, insertion area without drainage or erythema. Right scrotum swollen however much improved status post procedure. Persistent scrotal erythema. MUSCULOSKELETAL: No cyanosis, or edema. No calf tenderness BACK: Nontender without obvious deformity. No CVA tenderness. NEURO: Awake and alert. Normal speech. A/P Assessment and Plan 56-year-old male admitted for sepsis secondary to urinary tract infection and scrotal abscess, status post suprapubic catheter insertion and transrectal draining of seminal vesicle abscess on 05/14. Plan as below. Discharge Planning Discharge today 05/22. Problem List: (1) Sepsis Status: Resolved Plan: With lactic acid of 3.1 on admission, currently resolved. No fevers since drainage of seminal vesicle abscess. Culture of fluid positive for ESBL Escherichia coli. Sensitive to Zosyn. Urology consulted, patient status post suprapubic catheter placement and drainage of the seminal vesicle abscess on 05/14 Infectious disease consulted, appreciate antibiotic recommendations. DC Zosyn and Levaquin. Started on Ertapenem, PICC placement on 05/17. Patient will need total of 6 weeks of antibiotics which can be done as an outpatient. (2) Abscess, seminal vesicle Status: Acute Plan: Plan as above (3) UTI (urinary tract infection) Status: Resolved Plan: Patient with history of urinary retention, admitted with indwelling Etrrazas catheter. UA showed: 300 glucose, trace ketones, high nitrates, high leukocyte esterase, 61 white blood cells, moderate high bacteria. Urine culture pending. Antibiotics as above. Suprapubic catheter placed 05/14 -follow-up with urology for removal. (4) Thrombocytopenia Status: Resolved Plan: Platelets 211 on admission, decreased to 98 on 05/16. Improving since (on 05/18 plt count of 155) Hit panel negative Hematology consulted, likely consumptive (5) Anemia Status: Acute Plan: Patient with stable H&H. Iron studies c/w Fe deficiency anemia. Seen by Hematology, started on Fe BID. (6) CKD (chronic kidney disease) Status: Chronic Plan: Patient with elevated Cr. Likely chronic 2/2 diabetic nephropathy. Renal US wnl. Continue to monitor. (7) Atrial fibrillation Status: Acute Plan: Patient with recent diagnosis of atrial fibrillation, EKG in the emergency department showed sinus tachycardia with nonspecific ST changes. After discussion with his family and the risk and benefits were explained, the patient opted for aspirin therapy. We will not resume Coumadin therapy at this time. (8) DM (diabetes mellitus) Status: Acute Plan: Increased Levemir to 10 units twice a day with good response. Patient blood sugars now controlled. Continue sliding scale insulin. (9) Hypertension Status: Acute Plan: Patient hypertensive with BPs of 170s-200s systolic. Started Amlodipine 10 mg daily. Hydralizine PRN. Continue to monitor and adjust meds as needed. (10) Constipation Status: Resolved Plan: Patient status post Dulcolax and fleets enema. Is having frequent bowel movements, that are liquid in nature. C. difficile was negative. (11) Nutrition, metabolism, and development symptoms Status: Acute Plan: Nutrition: Diabetic diet Electrolytes: Replete when necessary DVT ppx: Mechanical SCDs, Heparin 5,000 units sq q 8 hours will restart 24 hours after procedure. GI ppx: not indicated at this time. Kenneth Black MD R2 May 22, 2017 14:06
[2017-05-22] MEDS: ERTAPENEM INJ 1,000 MG in SODIUM CHLORIDE 0.9% INJ 100 ML IV SCH (14:22)
--- NOTE | 2017-05-22 14:29 | HHI.IDPN ---
Subjective Subjective Remarks no fever L testicle pain slightly improved no abd pain Had BM, negative C.diff Antibiotics Ertapenem Allergies: Coded Allergies: *MDRO Multi-Drug Resistant Organism (Verified Adverse Reaction, Unknown, ) ESBL E.Coli (seminal fluid)-05/14/17 Objective . Vital Signs Date Time Temp Pulse Resp B/P Pulse Ox O2 Delivery O2 Flow Rate FiO2 05/22/17 12:00 97.8 91 20 149/72 97 05/22/17 10:34 18 05/22/17 08:00 97.8 86 20 152/75 96 05/22/17 04:00 97.3 65 18 156/74 93 05/22/17 04:00 Room Air 05/22/17 00:00 Room Air 05/22/17 00:00 98.1 90 17 143/78 96 05/21/17 20:00 91 05/21/17 20:00 Room Air 05/21/17 20:00 98.8 93 16 157/76 96 05/21/17 16:00 98.0 103 18 141/82 97 05/21/17 05/21/17 05/22/17 15:00 23:00 07:00 Intake Total 360 ml 240 ml 240 ml Output Total 850 ml 500 ml 300 ml Balance -490 ml -260 ml -60 ml Intake Oral 360 ml 240 ml 240 ml Output Urine Total 850 ml 500 ml 300 ml # Bowel Movements 1 1 . Laboratory Tests Test 05/21/17 05/22/17 04:23 04:30 White Blood Count 11.0 TH/MM3 10.7 TH/MM3 Red Blood Count 2.78 MIL/MM3 2.72 MIL/MM3 Hemoglobin 8.1 GM/DL 7.9 GM/DL Hematocrit 24.0 % 23.6 % Mean Corpuscular Volume 86.4 FL 87.0 FL Mean Corpuscular Hemoglobin 29.3 PG 29.2 PG Mean Corpuscular Hemoglobin 33.9 % 33.5 % Concent Red Cell Distribution Width 16.9 % 16.5 % Platelet Count 275 TH/MM3 318 TH/MM3 Mean Platelet Volume 8.3 FL 7.9 FL Neutrophils (%) (Auto) 80.7 % 83.9 % Lymphocytes (%) (Auto) 6.6 % 9.2 % Monocytes (%) (Auto) 11.1 % 5.8 % Eosinophils (%) (Auto) 1.0 % 0.7 % Basophils (%) (Auto) 0.6 % 0.4 % Neutrophils # (Auto) 8.9 TH/MM3 9.0 TH/MM3 Lymphocytes # (Auto) 0.7 TH/MM3 1.0 TH/MM3 Monocytes # (Auto) 1.2 TH/MM3 0.6 TH/MM3 Eosinophils # (Auto) 0.1 TH/MM3 0.1 TH/MM3 Basophils # (Auto) 0.1 TH/MM3 0.0 TH/MM3 CBC Comment DIFF FINAL DIFF FINAL Differential Comment Laboratory Tests Test 05/21/17 04:23 Sodium Level 145 MEQ/L Potassium Level 3.5 MEQ/L Chloride Level 110 MEQ/L Carbon Dioxide Level 27.2 MEQ/L Anion Gap 8 MEQ/L Blood Urea Nitrogen 8 MG/DL Creatinine 1.06 MG/DL Estimat Glomerular Filtration 87 ML/MIN Rate Random Glucose 94 MG/DL Calcium Level 8.6 MG/DL Imaging Last Impressions Abdomen X-Ray 05/19/17 0000 Signed Impressions: Service Date/Time: Friday, May 19, 2017 10:13 - CONCLUSION: 1. There is a moderate amount of diffuse stool predominantly from the right colon. 2. The bowel gas pattern is nonspecific with some mild dilated loops of small bowel and some air-fluid levels. 3. No evidence of free air. Lio Fernández MD Chest X-Ray 05/17/17 0000 Signed Impressions: Service Date/Time: Wednesday, May 17, 2017 14:54 - CONCLUSION: PICC line in good position. Fish Rodriguez MD FACR Renal Ultrasound 05/16/17 0000 Signed Impressions: Service Date/Time: April 13:57 - CONCLUSION: 1. Echogenic renal cortex suggesting underlying medical renal disease. 2. Incidental 8 mm stone seen on the right. 3. No findings to indicate renal obstruction. 4. Very minimal amount of free fluid adjacent to the liver margin. Beka Rodriguez MD Pelvis CT 05/12/17 0000 Signed Impressions: Service Date/Time: Friday, May 12, 2017 10:48 - CONCLUSION: 1. Marked circumferential thickening of the bladder with Corey catheter balloon displaced anteriorly by a bladder mass or enlarged prostate measuring up to 4.9 cm in diameter. 3.8 cm mass in the region of the left seminal vesicle. Differential diagnosis includes infection and neoplasm. 2. Bilateral hydroceles. Alex De MD Scrotum Ultrasound 05/11/17 0947 Signed Impressions: Service Date/Time: Thursday, May 11, 2017 10:14 - CONCLUSION: 1. Increased blood flow within the left testicle and epididymis suggestive of epididymoorchitis. A small left hydrocele is present. 2. Bilateral testicular microlithiasis. Glenn Hamlin MD Physical Exam CONSTITUTIONAL/GENERAL: This is an adequately nourished patient, in no apparent distress. TUBES/LINES/DRAINS: SKIN: No rashes, or lesions. CARDIOVASCULAR: Regular rate and rhythm without murmurs, gallops, or rubs. RESPIRATORY/CHEST: Symmetric, unlabored respirations. Clear to auscultation. GASTROINTESTINAL: Abdomen soft, not tender to palpation, mildly distended. GENITOURINARY: Without palpable bladder distension. SP catheter in place with failry clear yellow urine L testicle remains enlarged hard and tender to palpation MUSCULOSKELETAL: Extremities without clubbing, cyanosis, or edema. NEUROLOGICAL: Awake and alert. Non focal PSYCHIATRIC: No obvious anxiety/depression. no apparent hallucinations or other psychotic thought process. Assessment & Plan Remarks UTI in the settings of chronic corey left epididymalorchitis and prostatic/seminal vesicle abcess Prostatic abscess - sp unroofing - - ESBL + E.coli Sepsis 2/2 complicated UTI, clinically resolved Abx associated diarrhea: no C.diff Leukocytosis resolved - cont Ertapenem x 6 wks total OK to dc home with fu with Dr segal consider to repeat pelvis US if persistent ow unexplained fever OPAT forms filled out Martha Britt MD May 22, 2017 14:29
--- NOTE | 2017-05-22 14:56 | HHI.DS ---
Discharge Summary Admission Date May 11, 2017 at 12:44 Admitting Diagnosis UTI/orchitis/sepsis (1) Sepsis Plan: With lactic acid of 3.1 on admission, currently resolved. No fevers since drainage of seminal vesicle abscess. Culture of fluid positive for ESBL Escherichia coli. Sensitive to Zosyn. Urology consulted, patient status post suprapubic catheter placement and drainage of the seminal vesicle abscess on 05/14 Infectious disease consulted, appreciate antibiotic recommendations. DC Zosyn and Levaquin. Started on Ertapenem, PICC placement on 05/17. Patient will need total of 6 weeks of antibiotics which can be done as an outpatient. (2) Abscess, seminal vesicle Plan: Plan as above (3) UTI (urinary tract infection) Plan: Patient with history of urinary retention, admitted with indwelling Terrazas catheter. UA showed: 300 glucose, trace ketones, high nitrates, high leukocyte esterase, 61 white blood cells, moderate high bacteria. Urine culture pending. Antibiotics as above. Suprapubic catheter placed 05/14 -follow-up with urology for removal. (4) Thrombocytopenia Plan: Platelets 211 on admission, decreased to 98 on 05/16. Improving since (on 05/18 plt count of 155) Hit panel negative Hematology consulted, likely consumptive (5) Anemia Plan: Patient with stable H&H. Iron studies c/w Fe deficiency anemia. Seen by Hematology, started on Fe BID. (6) CKD (chronic kidney disease) Plan: Patient with elevated Cr. Likely chronic 2/2 diabetic nephropathy. Renal US wnl. Continue to monitor. (7) Atrial fibrillation Plan: Patient with recent diagnosis of atrial fibrillation, EKG in the emergency department showed sinus tachycardia with nonspecific ST changes. After discussion with his family and the risk and benefits were explained, the patient opted for aspirin therapy. We will not resume Coumadin therapy at this time. (8) DM (diabetes mellitus) Plan: Increased Levemir to 10 units twice a day with good response. Patient blood sugars now controlled. Continue sliding scale insulin. (9) Hypertension Plan: Patient hypertensive with BPs of 170s-200s systolic. Started Amlodipine 10 mg daily. Hydralizine PRN. Continue to monitor and adjust meds as needed. (10) Constipation Plan: Patient status post Dulcolax and fleets enema. Is having frequent bowel movements, that are liquid in nature. C. difficile was negative. (11) Nutrition, metabolism, and development symptoms Plan: Nutrition: Diabetic diet Electrolytes: Replete when necessary DVT ppx: Mechanical SCDs, Heparin 5,000 units sq q 8 hours will restart 24 hours after procedure. GI ppx: not indicated at this time. Brief History Mr. Sheehan is a pleasant 56 y/o male with a PMHx of insulin controlled 2 diabetes mellitus, benign prostate hyperplasia, urinary retention requiring frequent catheterizations, and hypertension presenting with 2 days of worsening left testicular pain. He was scheduled for a urological surgery (possible prostate biopsy) on , 05/09, with Dr. Oh, however this was not accomplished secondary to uncontrolled blood sugars preoperatively. He also had a Terrazas catheter placed last week, for urinary retention. HPI: In general, the patient has been having left-sided testicular pain for the past 24 hours. He reports that it is a 10 out of 10, and radiates into his back. Any movement exacerbates the pain. Nothing at this point is helping his pain. He also reports fevers and chills since this morning. He denies any testicular trauma. Otherwise, complete review of systems was negative, except for a mild headache started this morning. CBC/BMP: 05/22/17 0430 05/21/17 0423 Significant Findings Laboratory Tests Test 05/21/17 05/22/17 04:23 04:30 Red Blood Count 2.78 MIL/MM3 2.72 MIL/MM3 (4.50-5.90) (4.50-5.90) Hemoglobin 8.1 GM/DL 7.9 GM/DL (13.0-17.0) (13.0-17.0) Hematocrit 24.0 % 23.6 % (39.0-51.0) (39.0-51.0) Neutrophils (%) (Auto) 80.7 % 83.9 % (16.0-70.0) (16.0-70.0) Lymphocytes (%) (Auto) 6.6 % (9.0-44.0) Monocytes (%) (Auto) 11.1 % (0.0-8.0) Neutrophils # (Auto) 8.9 TH/MM3 9.0 TH/MM3 (1.8-7.7) (1.8-7.7) Lymphocytes # (Auto) 0.7 TH/MM3 (1.0-4.8) Monocytes # (Auto) 1.2 TH/MM3 (0-0.9) Chloride Level 110 MEQ/L (98-107) Estimat Glomerular Filtration 87 ML/MIN (>89) Rate PE at Discharge GENERAL: wdwn male, resting in bed, family at bedside. SKIN: Warm and dry. HEAD: Normocephalic. AT EYES: No scleral icterus. No injection or drainage. ENT: OP clear. MM moist NECK: Supple, trachea midline. No JVD or lymphadenopathy. CARDIOVASCULAR: Regular rate and rhythm without murmurs, gallops, or rubs. RESPIRATORY: Breath sounds equal bilaterally. No accessory muscle use. GASTROINTESTINAL: Abdomen soft, non-tender, nondistended. : Suprapubic catheter in place, insertion area without drainage or erythema. Right scrotum swollen however much improved status post procedure. Persistent scrotal erythema. MUSCULOSKELETAL: No cyanosis, or edema. No calf tenderness BACK: Nontender without obvious deformity. No CVA tenderness. NEURO: Awake and alert. Normal speech. Hospital Course Patient is a pleasant 56-year-old male with a past medical history of chronic kidney disease, atrial fibrillation, hypertension, diabetes mellitus, who was getting catheterized for urinary retention, and developed a seminal vesicle abscess. The abscess was drained by urology, and the patient was hospitalized for greater than 7 days with IV antibiotics. He progressively improved throughout his hospitalization. Cultures from surgery showed ESBL organism. He was treated with ertapenem, and discharged home with the PICC line and home health to administer IV antibiotics. He also had a pubic catheter in place, and will need follow-up with Dr. Oh as an outpatient. His blood sugar was well controlled on Levemir 10 units daily. For his atrial fibrillation, was decided after discussion with his family that low-dose aspirin was appropriate. He was discharged home in stable condition. The workup in the hospital for his anemia showed an iron deficiency anemia with an inflammatory component, he did receive IV iron 1 and will be discharged on by mouth ferrous sulfate. Pt Condition on Discharge: Stable Discharge Disposition: Discharge Home Discharge Instructions DIET: Follow Instructions for: Heart Healthy Diet Activities you can perform: Regular-No Restrictions New Medications: Aspirin (Aspirin) 81 Mg Chew 81 MG CHEW DAILY #90 Ref 0 TAB Epinephrine Inj (Epinephrine Inj) 1 Mg/Ml Inj 0.3 MG IV PUSH ONCE PRN ALLERGIC REACTION #1 VIAL Epinephrine Inj (Epinephrine Inj) 1 Mg/Ml Inj 0.3 MG SQ ONCE Give with any signs of respiratory distress. PRN ALLERGIC REACTION #1 VIAL Ertapenem Inj (Invanz Inj) 1 Gm Addvial 1 GM IV Q24H ADMINISTER IN 100ML NS Infection Days 37 Ref 0 INJECTION Hydrocortisone Inj (Solu-Cortef Inj) 250 Mg Inj 250 MG IV PUSH ONCE Give over 30-60 seconds. PRN ALLERGIC REACTION #1 Ref 0 VIAL Amlodipine (Norvasc) 10 Mg Tab 10 MG PO DAILY #30 Ref 0 TAB Ferrous Sulfate (Ferosul) 325 Mg Tablet 325 MG PO BID #60 Ref 0 TAB Oxycodone-Acetaminophen (Oxycodone-Acetaminophen) 10-325 mg Tab 1 TAB PO Q4H PRN PAIN 1-5 #45 Ref 0 TAB Sennosides-Docusate Sodium (Senna Plus 8.6-50 mg) 1 Tab Tab 2 TAB PO BID #60 Ref 0 TAB Continued Medications: Insulin Detemir Inj (Levemir Inj) 1,000 unit/ 10 ML Vial 10 UNITS SQ HS Do not mix with any other Insulin. Blood Sugar Management #1 Ref 0 VIAL (This prescription has been renewed) Discontinued Medications: Insulin Lispro (Human) Inj (Humalog Inj) 1,000 Unit/10 Ml Vial 1-9 UNITS SQ ACHS Max dose at bedtime:( )units; sugars< 70,(0)units; sugars 150 -199,(1)unit; sugars 200-249,(3)units; sugars 250-299,(5)units; sugars 300-349,( 7)units; sugars more than 349,(9)units. Blood Sugar Management #1 Ref 0 VIAL Kenneth Black MD R2 May 22, 2017 14:56
[2017-05-22 16:00] VITALS: BP 134/67; PULSE 91; RESP 20; TEMP 98.2; O2SAT 93
[2017-05-22] MEDS ORDERED: LEVEMIR SQ (17:42)
== END 2017-05-22 18:18 | disposition home or self-care (01) | DRG 872 ==
LOC: NEPC 09:29 → NEDA 12:44 → N04B 15:42
PROVIDERS: ADMIT Family Medicine; ATTEND Family Medicine
PROC: 0T9B80Z Drainage of Bladder with Drainage Device, Via Natural or Artificial Opening Endoscopic (ICD-10-PCS; 2017-05-14)
PROC: 30233N1 Transfusion of Nonautologous Red Blood Cells into Peripheral Vein, Percutaneous Approach (ICD-10-PCS; principal; 2017-05-14 06:57)
PROC: 0V9 Male Reproductive System, Drainage (ICD-10-PCS; 2017-05-14 06:57)
DX: A41.51 Sepsis due to Escherichia coli [E. coli] (principal); E87.2 Acidosis; N17.9 Acute kidney failure, unspecified; E11.22 Type 2 diabetes mellitus with diabetic chronic kidney disease; D69.59 Other secondary thrombocytopenia; E11.51 Type 2 diabetes mellitus with diabetic peripheral angiopathy without gangrene; N30.00 Acute cystitis without hematuria; N41.2 Abscess of prostate; E11.649 Type 2 diabetes mellitus with hypoglycemia without coma; I48.91 Unspecified atrial fibrillation; R65.20 Severe sepsis without septic shock; B96.29 Other Escherichia coli [E. coli] as the cause of diseases classified elsewhere; E78.5 Hyperlipidemia, unspecified; N40.1 Benign prostatic hyperplasia with lower urinary tract symptoms; R33.9 Retention of urine, unspecified; N45.3 Epididymo-orchitis; N49.0 Inflammatory disorders of seminal vesicle; Z16.11 Resistance to penicillins; D50.0 Iron deficiency anemia secondary to blood loss (chronic); Z79.4 Long term (current) use of insulin; Z91.14 Patient's other noncompliance with medication regimen; N32.0 Bladder-neck obstruction; K59.00 Constipation, unspecified; I12.9 Hypertensive chronic kidney disease with stage 1 through stage 4 chronic kidney disease, or unspecified chronic kidney disease; N18.9 Chronic kidney disease, unspecified
CPT/HCPCS: 36430; 36569; 71010; 72193; 74020; 76775; 76870; 76937; 80048; 80053; 81001; 82607; 82728; 82746; 82948; 83540; 83550; 83605; 83735; 84100; 84153; 85007; 85025; 85027; 85060; 85384; 85610; 85730; 86022; 86850; 86900; 86901; 86920; 87015; 87040; 87070; 87077; 87086; 87102; 87116; 87186; 87205; 87206; 87493; 93005; 93975; 96374; 96375; C1729; J0131; J0360; J1100; J1170; J1335; J1756; J1815; J1956; J2250; J2370; J2405; J2543; J3010; J3370; J3430; J3480; J7030; J7040; J7120; P9016; Q0163; Q9967